=== PATIENT | male | born 1955 | race Caucasian/White ===

== ENCOUNTER 2023-06-16 20:21 | Emergency (ER) | payer MEDICARE, OTHER, SELFPAY ==
[2023-06-16 20:27] VITALS: BP 122/60
[2023-06-16 20:50] LABS: % Basophils 0.4 % (0-2); % Eosinophils 0.1 % (0-6); % Immature Granulocytes 2.8 % (0-0.5); % Lymphocytes 3.2 % (20.5-51.1); % Monocytes 7.7 % (1.7-9.3); % Neutrophils 85.8 % (42.2-75.2); Absolute Basophils 0.1 10^3/uL (0-0.2); Absolute Immature Granulocytes 0.4 10^3/uL (0-0.05); Absolute Lymphocytes 0.5 10^3/uL (1.2-3.4); Absolute Monocytes 1.1 10^3/uL (0.1-0.6); Absolute Neutrophils 12.7 10^3/uL (1.4-6.5); Hematocrit 40.6 % (39.0-52.0); Hemoglobin 13.8 g/dL (13.0-18.0); Mean Corpuscular Hgb 28.7 pg (27.0-31.0); Mean Corpuscular Volume 84.4 fL (80.0-94.0); Nucleated Red Blood Cells % 0 % (-); Red Blood Cell Count 4.81 10^6/uL (4.70-6.10); Red Cell Dist. Width 15.1 % (11.5-14.5); White Blood Cell Count 14.9 10^3/uL (4.8-10.8)
[2023-06-16 21:16] LABS: Platelet Count 12 10^3/uL (130-400)
[2023-06-16 21:41] LABS: ALT (SGPT) 30 U/L (0-50); AST (SGOT) 36 U/L (17-59); Albumin 3.6 g/dl (3.5-5.0); Alkaline Phosphatase 78 U/L (38-126); Blood Urea Nitrogen 34 mg/dl (9-20); Calcium 8.7 mg/dl (8.4-10.2); Carbon Dioxide 24 mmol/L (22-30); Chloride 106 mmol/L (98-107); Glucose 134 mg/dl (70-99); Potassium 4.4 mmol/L (3.5-5.1); Sodium 137 mmol/L (135-145); Total Protein 6.3 g/dl (6.3-8.2); eGFR > 60.00
[2023-06-16 21:54] LABS: Total Bilirubin 0.6 mg/dl (0.2-1.3)
[2023-06-16 22:12] VITALS: BMI 23.2
--- NOTE | 2023-06-16 22:29 | ED.GENMED ---
History of Present Illness
General
Chief Complaint: Nasal Problem
Source: patient
Exam Limitations: none
Time Seen by Provider: 06/16/23 22:13
Nursing documentation reviewed up to this point in time: agreed with
Travel History
Have you had any contact with someone who has COVID-19?: No
Do you have any symptoms of coronavirus? Fever > 100 degrees, chills, cough, shortness of breath, sore throat, loss of taste or smell, muscle aches, or headache?: No
History of Present Illness
History of Present Illness:
68-year-old male with ITP chronic since childhood followed by Dr. Marte gets Nplate weekly missed his dose last week due to weather, platelet count was 2-3000, started on prednisone 30 mg platelet count went up today 12,000 proportional developed
nosebleed few hours ago has been bleeding through a pack, been having some bruising,
Phy Exam
Physical Exam
Physical Exam:
Physical Exam
General: no apparent distress, not acutely ill
Neck: Oozing bleeding through nasal pack--- packing removed with slight bleeding
Heart: s1/s2 regular rate and rhythm, no murmur. equal radial pulses.
Lungs: no acute respiratory distress.
Neuro: alert and oriented. no focal neurological deficits
Skin: Bruises
Psychiatric: well kept. interactive and cooperative
Extremities: no edema.
Course
Orders/Labs/Results
Orders:
Orders
06/16/23 20:40
Type+Screen Urgent
Complete Blood Count/With Diff Urgent
Comprehensive Metabolic Panel Urgent
06/16/23 22:16
0.9% Sodium Chloride 250 ml [Nss] 250 ml IV BOLUS
06/16/23 22:41
Blood Bank Products [* Blood Bank Products] Urgent
's Orders: jerzy
Blood Bank Products: *Plt Single Donor Leuko
Quantity: 1
Transfuse Today: Yes
Reason: Thrombocytopenia
Abnormal Lab Results
06/16/23
20:40
WBC 14.9 H 10^3/uL
(4.8-10.8)
RDW 15.1 H %
(11.5-14.5)
Plt Count 12 L* 10^3/uL
(130-400)
Abs Immat Gran (auto) 0.4 H 10^3/uL
(0-0.05)
Absolute Neuts (auto) 12.7 H 10^3/uL
(1.4-6.5)
Absolute Lymphs (auto) 0.5 L 10^3/uL
(1.2-3.4)
Absolute Monos (auto) 1.1 H 10^3/uL
(0.1-0.6)
Immature Gran % 2.8 H %
(0-0.5)
Neutrophils % 85.8 H %
(42.2-75.2)
Lymphocytes % 3.2 L %
(20.5-51.1)
BUN 34 H mg/dl
(9-20)
Glucose 134 H mg/dl
(70-99)
06/16/23 20:40
06/16/23 20:40
Vital Signs
Initial and Last Documented VS:
Initial Vital Signs
Temp Pulse Resp BP Pulse Ox
97.9 F 83 18 122/60 99
06/16/23 20:27 06/16/23 20:27 06/16/23 20:27 06/16/23 20:27 06/16/23 20:27
Last Documented Vital Signs
Temp Pulse Resp BP Pulse Ox
98.9 F 67 18 148/88 97
06/16/23 23:51 06/16/23 23:29 06/16/23 23:51 06/16/23 23:51 06/16/23 23:51
*Critical Care Note
Total Time (30-74mins, 75-104mins- exclusive of procedures): 12
Update Note
Update Note:
Reviewed with on-call hematology his dose of Nplate is 550 mcg pharmacy only has 125 mcg in stock, therefore oncologist recommended platelet transfusion and IVIG milligram per kilogram
Will try to arrange all this going with platelet transfusion patient consented for product
11:20 PM homemade packing of the patient would not remove by myself not much bleeding now reviewed options with him, he would like to stay for platelet transfusion which is not unreasonable I think we can hold off on IVIG, he does have an
appointment tomorrow with hematology for Nplate
1154 platelets infusing no obvious bleeding
ED Attending Note
-
Portions of this chart may have been created with voice recognition software.� Occasional wrong word or��sound alike� substitutions may have occurred due to the inherent limitations of voice recognition software.
Discharge Plan
Departure
Patient Disposition: Home (Routine Discharge)
Date of Disposition: 06/16/23
Time of Disposition: 23:54
Patient with high blood pressure during this ER visit?: No
Condition: Good
Discharge Problem:
Thrombocytopenia, Chronic ITP (idiopathic thrombocytopenia)
Instructions: Nosebleeds (DC)
Prescriptions:
No Action
levothyroxine 50 mcg Tablet
50 mcg PO DAILY
prednisone 10 mg Tablet
10 mg PO DIRECTED
Patient Comments:
patient stated he started on 11/02/22 on 50mg then got a call yesterday 11/07/22 from his pcp to decrease to 40mg then as directed, 35mg daily for 2 days then 30mg daily for 2 days then 25mg daily for 2 days then 20mg daily for 2 days then 15mg
daily thereafter
Theragen Tablet
1 tab PO DAILY
acetaminophen [Tylenol Extra Strength] 500 mg Tablet
1,000 mg PO QIDPRN PRN (Reason: mild pain)
calcium carbonate [Calcium 500] 500 mg calcium (1,250 mg) Tablet
500 mg PO DAILY
ascorbate calcium (vitamin C) [Joyce-C] 500 mg Tablet
500 mg PO DAILY
vitamin B complex [B Complete] Tablet
1 tab PO DAILY
Referrals:
Madeline Ervin CRNP [Family Provider] -
Activity Restrictions/Additional Instructions:
Return to the ER if your bleeding returns he cannot control it, follow-up with hematology tomorrow for your infusion of Nplate
Interventions
Interventions:
*Risk Screen - Suicide Last Done: 06/16/23 20:27
*General Assessment Last Done: 06/16/23 20:27
*Neglect/Abuse Screening Last Done: 06/16/23 20:27
ED- Fall Risk Assessment Last Done: 06/16/23 20:27
*ED COVID-19 Vaccine History Last Done: 06/16/23 20:27
ED-EENT Assessment Last Done: 06/16/23 22:19
[2023-06-16] MEDS: NSS 250 IV (22:50)
[2023-06-16 23:29] VITALS: BP 144/82
[2023-06-16 23:51] VITALS: BP 148/88
[2023-06-16 23:53] VITALS: BP 148/88
== END 2023-06-17 00:20 | disposition home or self-care (01) ==
LOC: EMR 20:21
PROVIDERS: EMERGENCY PHYSICIAN Emergency Medicine; FAMILY PHYSICIAN Nurse Practitioner Adult Health
DX: R04.0 Epistaxis (principal); D69.3 Immune thrombocytopenic purpura
CPT/HCPCS: 99282; 96360; 80053; 85025; 86850; 86900; 86901; P9073

== ENCOUNTER 2023-06-26 16:13 | Outpatient (RCR) | payer MEDICARE, OTHER, SELFPAY | END 2023-06-26 23:59 | disposition home or self-care (01) | LOC: OID 16:13 | PROVIDERS: ATTENDING PHYSICIAN Internal Medicine Hematology & Oncology; FAMILY PHYSICIAN Nurse Practitioner Adult Health | DX: D69.3 Immune thrombocytopenic purpura (principal); M06.9 Rheumatoid arthritis, unspecified | CPT/HCPCS: 36415; 85025; 86850; 86900; 86901; 86920 ==

== ENCOUNTER 2023-06-27 11:29 | Outpatient (RCR) | payer MEDICARE, OTHER, SELFPAY ==
[2023-06-27 11:35] VITALS: BP 137/66
[2023-06-27 12:08] VITALS: BP 137/66
[2023-06-27 12:25] VITALS: BP 137/66
[2023-06-27 14:45] VITALS: BP 137/73
== END 2023-07-25 23:59 | disposition home or self-care (01) ==
LOC: OID 11:29
PROVIDERS: ATTENDING PHYSICIAN Internal Medicine Hematology & Oncology; FAMILY PHYSICIAN Nurse Practitioner Adult Health
DX: D69.3 Immune thrombocytopenic purpura (principal); M06.9 Rheumatoid arthritis, unspecified
CPT/HCPCS: 36430; 86850; 86900; 86901; 86920; P9016

== ENCOUNTER → 2023-07-05 11:20 | Outpatient (REF) | payer MEDICARE, OTHER, SELFPAY ==
[2023-07-05 11:50] LABS: % Basophils 0.2 % (0-2); % Eosinophils 0.1 % (0-6); % Immature Granulocytes 3.7 % (0-0.5); % Lymphocytes 4.4 % (20.5-51.1); % Monocytes 10.5 % (1.7-9.3); % Neutrophils 81.1 % (42.2-75.2); Absolute Immature Granulocytes 0.5 10^3/uL (0-0.05); Absolute Lymphocytes 0.6 10^3/uL (1.2-3.4); Absolute Monocytes 1.5 10^3/uL (0.1-0.6); Absolute Neutrophils 11.5 10^3/uL (1.4-6.5); Hematocrit 29.3 % (39.0-52.0); Hemoglobin 9.3 g/dL (13.0-18.0); Mean Corp Hgb Conc. 31.7 g/dL (33.0-37.0); Mean Corpuscular Hgb 29.5 pg (27.0-31.0); Nucleated Red Blood Cells % 1.1 % (-); Red Blood Cell Count 3.15 10^6/uL (4.70-6.10); Red Cell Dist. Width 18.2 % (11.5-14.5); White Blood Cell Count 14.2 10^3/uL (4.8-10.8)
[2023-07-05 12:38] LABS: Platelet Count 32 10^3/uL (130-400)
== END ==
LOC: REG 11:20
PROVIDERS: ATTENDING PHYSICIAN Internal Medicine Hematology & Oncology
DX: D69.3 Immune thrombocytopenic purpura (principal); M06.9 Rheumatoid arthritis, unspecified
CPT/HCPCS: 36415; 85025

== ENCOUNTER → 2023-07-12 11:16 | Outpatient (REF) | payer MEDICARE, OTHER, SELFPAY ==
[2023-07-12 12:08] LABS: % Basophils 0.4 % (0-2); % Eosinophils 0.1 % (0-6); % Immature Granulocytes 5.7 % (0-0.5); % Lymphocytes 6.3 % (20.5-51.1); % Monocytes 7.1 % (1.7-9.3); % Neutrophils 80.4 % (42.2-75.2); Absolute Basophils 0.1 10^3/uL (0-0.2); Absolute Immature Granulocytes 0.8 10^3/uL (0-0.05); Absolute Lymphocytes 0.9 10^3/uL (1.2-3.4); Absolute Monocytes 1.1 10^3/uL (0.1-0.6); Absolute Neutrophils 11.9 10^3/uL (1.4-6.5); Hematocrit 32.9 % (39.0-52.0); Hemoglobin 10.4 g/dL (13.0-18.0); Mean Corp Hgb Conc. 31.6 g/dL (33.0-37.0); Mean Corpuscular Hgb 29.8 pg (27.0-31.0); Mean Corpuscular Volume 94.3 fL (80.0-94.0); Nucleated Red Blood Cells % 0.5 % (-); Red Blood Cell Count 3.49 10^6/uL (4.70-6.10); Red Cell Dist. Width 17.7 % (11.5-14.5); White Blood Cell Count 14.8 10^3/uL (4.8-10.8)
[2023-07-12 12:22] LABS: Platelet Count 30 10^3/uL (130-400)
== END ==
LOC: REG 11:16
PROVIDERS: ATTENDING PHYSICIAN Internal Medicine Hematology & Oncology; FAMILY PHYSICIAN Nurse Practitioner Adult Health
DX: D69.3 Immune thrombocytopenic purpura (principal); M06.9 Rheumatoid arthritis, unspecified
CPT/HCPCS: 36415; 85025

== ENCOUNTER → 2023-07-19 10:57 | Outpatient (REF) | payer MEDICARE, OTHER, SELFPAY ==
[2023-07-19 11:58] LABS: % Basophils 0.8 % (0-2); % Eosinophils 0.2 % (0-6); % Immature Granulocytes 4.3 % (0-0.5); % Lymphocytes 8.4 % (20.5-51.1); % Monocytes 12.4 % (1.7-9.3); % Neutrophils 73.9 % (42.2-75.2); Absolute Basophils 0.1 10^3/uL (0-0.2); Absolute Immature Granulocytes 0.6 10^3/uL (0-0.05); Absolute Lymphocytes 1.2 10^3/uL (1.2-3.4); Absolute Monocytes 1.8 10^3/uL (0.1-0.6); Absolute Neutrophils 10.6 10^3/uL (1.4-6.5); Hematocrit 35.8 % (39.0-52.0); Hemoglobin 11.7 g/dL (13.0-18.0); Mean Corp Hgb Conc. 32.7 g/dL (33.0-37.0); Mean Corpuscular Hgb 30.5 pg (27.0-31.0); Mean Corpuscular Volume 93.5 fL (80.0-94.0); Mean Platelet Volume 13.4 fL (7.4-10.4); Nucleated Red Blood Cells % 0.1 % (-); Red Blood Cell Count 3.83 10^6/uL (4.70-6.10); Red Cell Dist. Width 16.5 % (11.5-14.5); White Blood Cell Count 14.3 10^3/uL (4.8-10.8)
[2023-07-19 12:40] LABS: Platelet Count 403 10^3/uL (130-400)
== END ==
LOC: REG 10:57
PROVIDERS: ATTENDING PHYSICIAN Internal Medicine Hematology & Oncology; FAMILY PHYSICIAN Nurse Practitioner Adult Health
DX: D69.3 Immune thrombocytopenic purpura (principal); M06.9 Rheumatoid arthritis, unspecified
CPT/HCPCS: 36415; 85025

== ENCOUNTER → 2023-07-26 11:16 | Outpatient (REF) | payer MEDICARE, OTHER, SELFPAY ==
[2023-07-26 11:52] LABS: % Basophils 0.7 % (0-2); % Eosinophils 0.3 % (0-6); % Immature Granulocytes 4.9 % (0-0.5); % Lymphocytes 9.8 % (20.5-51.1); % Monocytes 12.4 % (1.7-9.3); % Neutrophils 71.9 % (42.2-75.2); Absolute Basophils 0.1 10^3/uL (0-0.2); Absolute Eosinophils 0.1 10^3/uL (0-0.7); Absolute Immature Granulocytes 0.8 10^3/uL (0-0.05); Absolute Lymphocytes 1.6 10^3/uL (1.2-3.4); Absolute Neutrophils 11.6 10^3/uL (1.4-6.5); Hematocrit 35.6 % (39.0-52.0); Hemoglobin 11.2 g/dL (13.0-18.0); Mean Corp Hgb Conc. 31.5 g/dL (33.0-37.0); Mean Corpuscular Volume 92.2 fL (80.0-94.0); Nucleated Red Blood Cells % 0.2 % (-); Red Blood Cell Count 3.86 10^6/uL (4.70-6.10); Red Cell Dist. Width 15.7 % (11.5-14.5); White Blood Cell Count 16.1 10^3/uL (4.8-10.8)
[2023-07-26 13:31] LABS: Mean Platelet Volume 11.8 fL (7.4-10.4); Platelet Count 898 10^3/uL (130-400)
== END ==
LOC: REG 11:16
PROVIDERS: ATTENDING PHYSICIAN Internal Medicine Hematology & Oncology
DX: D69.3 Immune thrombocytopenic purpura (principal); M06.9 Rheumatoid arthritis, unspecified
CPT/HCPCS: 36415; 85025

== ENCOUNTER → 2023-07-29 10:52 | Outpatient (REF) | payer MEDICARE, OTHER, SELFPAY ==
[2023-07-29 11:38] LABS: % Basophils 0.9 % (0-2); % Eosinophils 0.2 % (0-6); % Immature Granulocytes 4.2 % (0-0.5); % Lymphocytes 11.7 % (20.5-51.1); Absolute Basophils 0.2 10^3/uL (0-0.2); Absolute Immature Granulocytes 0.7 10^3/uL (0-0.05); Absolute Lymphocytes 1.9 10^3/uL (1.2-3.4); Absolute Monocytes 2.1 10^3/uL (0.1-0.6); Absolute Neutrophils 11.5 10^3/uL (1.4-6.5); Hematocrit 36.8 % (39.0-52.0); Hemoglobin 11.6 g/dL (13.0-18.0); Mean Corp Hgb Conc. 31.5 g/dL (33.0-37.0); Mean Corpuscular Hgb 28.9 pg (27.0-31.0); Mean Corpuscular Volume 91.5 fL (80.0-94.0); Nucleated Red Blood Cells % 0.1 % (-); Red Blood Cell Count 4.02 10^6/uL (4.70-6.10); Red Cell Dist. Width 15.4 % (11.5-14.5); White Blood Cell Count 16.4 10^3/uL (4.8-10.8)
[2023-07-29 14:13] LABS: % Basophils 0.7 % (0-2); % Eosinophils 0.3 % (0-6); % Immature Granulocytes 3.7 % (0-0.5); % Lymphocytes 11.2 % (20.5-51.1); % Monocytes 13.9 % (1.7-9.3); % Neutrophils 70.2 % (42.2-75.2); Absolute Basophils 0.1 10^3/uL (0-0.2); Absolute Immature Granulocytes 0.5 10^3/uL (0-0.05); Absolute Lymphocytes 1.6 10^3/uL (1.2-3.4); Absolute Neutrophils 10.3 10^3/uL (1.4-6.5); Hematocrit 34.8 % (39.0-52.0); Mean Corp Hgb Conc. 31.6 g/dL (33.0-37.0); Mean Corpuscular Hgb 28.7 pg (27.0-31.0); Mean Corpuscular Volume 90.9 fL (80.0-94.0); Nucleated Red Blood Cells % 0.1 % (-); Red Blood Cell Count 3.83 10^6/uL (4.70-6.10); Red Cell Dist. Width 15.4 % (11.5-14.5); White Blood Cell Count 14.7 10^3/uL (4.8-10.8)
[2023-07-29 14:26] LABS: Platelet Count 1123 10^3/uL (130-400)
[2023-07-29 14:27] LABS: Mean Platelet Volume 10.5 fL (7.4-10.4)
== END ==
LOC: REG 10:52
PROVIDERS: ATTENDING PHYSICIAN Internal Medicine Hematology & Oncology; FAMILY PHYSICIAN Nurse Practitioner Adult Health
DX: D69.3 Immune thrombocytopenic purpura (principal); M06.9 Rheumatoid arthritis, unspecified
CPT/HCPCS: 36415; 85025

== ENCOUNTER → 2023-07-31 10:29 | Outpatient (REF) | payer MEDICARE, OTHER, SELFPAY ==
[2023-07-31 12:10] LABS: % Basophils 0.8 % (0-2); % Eosinophils 0.6 % (0-6); % Immature Granulocytes 2.9 % (0-0.5); % Lymphocytes 9.1 % (20.5-51.1); % Monocytes 14.4 % (1.7-9.3); % Neutrophils 72.2 % (42.2-75.2); Absolute Basophils 0.1 10^3/uL (0-0.2); Absolute Eosinophils 0.1 10^3/uL (0-0.7); Absolute Immature Granulocytes 0.4 10^3/uL (0-0.05); Absolute Lymphocytes 1.2 10^3/uL (1.2-3.4); Absolute Monocytes 1.9 10^3/uL (0.1-0.6); Absolute Neutrophils 9.6 10^3/uL (1.4-6.5); Hematocrit 35.4 % (39.0-52.0); Hemoglobin 11.1 g/dL (13.0-18.0); Mean Corp Hgb Conc. 31.4 g/dL (33.0-37.0); Mean Corpuscular Volume 92.4 fL (80.0-94.0); Mean Platelet Volume 10.7 fL (7.4-10.4); Nucleated Red Blood Cells % 0 % (-); Platelet Count 1051 10^3/uL (130-400); Red Blood Cell Count 3.83 10^6/uL (4.70-6.10); Red Cell Dist. Width 15.2 % (11.5-14.5); White Blood Cell Count 13.3 10^3/uL (4.8-10.8)
== END ==
LOC: REG 10:29
PROVIDERS: ATTENDING PHYSICIAN Internal Medicine Hematology & Oncology
DX: D69.3 Immune thrombocytopenic purpura (principal); M06.9 Rheumatoid arthritis, unspecified
CPT/HCPCS: 36415; 85025

== ENCOUNTER → 2023-08-02 10:31 | Outpatient (REF) | payer MEDICARE, OTHER, SELFPAY ==
[2023-08-02 10:57] LABS: % Eosinophils 0.7 % (0-6); % Immature Granulocytes 2.4 % (0-0.5); % Lymphocytes 10.9 % (20.5-51.1); % Monocytes 13.8 % (1.7-9.3); % Neutrophils 71.2 % (42.2-75.2); Absolute Basophils 0.1 10^3/uL (0-0.2); Absolute Eosinophils 0.1 10^3/uL (0-0.7); Absolute Immature Granulocytes 0.3 10^3/uL (0-0.05); Absolute Lymphocytes 1.4 10^3/uL (1.2-3.4); Absolute Monocytes 1.8 10^3/uL (0.1-0.6); Absolute Neutrophils 9.3 10^3/uL (1.4-6.5); Hematocrit 35.3 % (39.0-52.0); Hemoglobin 11.3 g/dL (13.0-18.0); Mean Corpuscular Hgb 29.3 pg (27.0-31.0); Mean Corpuscular Volume 91.5 fL (80.0-94.0); Nucleated Red Blood Cells % 0 % (-); Red Blood Cell Count 3.86 10^6/uL (4.70-6.10); Red Cell Dist. Width 14.9 % (11.5-14.5)
[2023-08-02 11:12] LABS: Mean Platelet Volume 10.5 fL (7.4-10.4); Platelet Count 518 10^3/uL (130-400)
== END ==
LOC: REG 10:31
PROVIDERS: ATTENDING PHYSICIAN Internal Medicine Hematology & Oncology; FAMILY PHYSICIAN Nurse Practitioner Adult Health
DX: D69.3 Immune thrombocytopenic purpura (principal); M06.9 Rheumatoid arthritis, unspecified
CPT/HCPCS: 36415; 85025

== ENCOUNTER → 2023-08-05 09:52 | Outpatient (REF) | payer MEDICARE, OTHER, SELFPAY ==
[2023-08-05 11:05] LABS: % Basophils 0.4 % (0-2); % Lymphocytes 6.1 % (20.5-51.1); % Monocytes 6.1 % (1.7-9.3); % Neutrophils 85.4 % (42.2-75.2); Absolute Immature Granulocytes 0.2 10^3/uL (0-0.05); Absolute Lymphocytes 0.6 10^3/uL (1.2-3.4); Absolute Monocytes 0.6 10^3/uL (0.1-0.6); Absolute Neutrophils 8.9 10^3/uL (1.4-6.5); Hematocrit 35.6 % (39.0-52.0); Hemoglobin 11.5 g/dL (13.0-18.0); Mean Corp Hgb Conc. 32.3 g/dL (33.0-37.0); Mean Corpuscular Hgb 28.8 pg (27.0-31.0); Mean Corpuscular Volume 89.2 fL (80.0-94.0); Nucleated Red Blood Cells % 0 % (-); Red Blood Cell Count 3.99 10^6/uL (4.70-6.10); Red Cell Dist. Width 14.5 % (11.5-14.5); White Blood Cell Count 10.4 10^3/uL (4.8-10.8)
[2023-08-05 11:17] LABS: Platelet Count 1 10^3/uL (130-400)
[2023-08-05 14:27] LABS: % Basophils 0.4 % (0-2); % Immature Granulocytes 1.8 % (0-0.5); % Lymphocytes 6.3 % (20.5-51.1); % Monocytes 8.1 % (1.7-9.3); % Neutrophils 83.4 % (42.2-75.2); Absolute Basophils 0.1 10^3/uL (0-0.2); Absolute Immature Granulocytes 0.2 10^3/uL (0-0.05); Absolute Lymphocytes 0.8 10^3/uL (1.2-3.4); Absolute Monocytes 1.1 10^3/uL (0.1-0.6); Absolute Neutrophils 11.2 10^3/uL (1.4-6.5); Hematocrit 35.5 % (39.0-52.0); Hemoglobin 11.6 g/dL (13.0-18.0); Mean Corp Hgb Conc. 32.7 g/dL (33.0-37.0); Mean Corpuscular Hgb 28.9 pg (27.0-31.0); Mean Corpuscular Volume 88.5 fL (80.0-94.0); Nucleated Red Blood Cells % 0 % (-); Platelet Count 0 10^3/uL (130-400); Red Blood Cell Count 4.01 10^6/uL (4.70-6.10); Red Cell Dist. Width 14.5 % (11.5-14.5); White Blood Cell Count 13.4 10^3/uL (4.8-10.8)
== END ==
LOC: REG 09:52
PROVIDERS: ATTENDING PHYSICIAN Internal Medicine Hematology & Oncology; FAMILY PHYSICIAN Nurse Practitioner Adult Health
DX: D69.3 Immune thrombocytopenic purpura (principal); M06.9 Rheumatoid arthritis, unspecified
CPT/HCPCS: 36415; 85025

== ENCOUNTER 2023-08-06 07:53 | Outpatient (RCR) | payer MEDICARE, OTHER, SELFPAY ==
[2023-08-06 08:54] VITALS: BP 143/75
[2023-08-06 09:10] VITALS: BP 128/71
[2023-08-06 09:46] VITALS: BP 146/70
== END 2023-08-25 23:59 | disposition home or self-care (01) ==
LOC: OID 07:53
PROVIDERS: ATTENDING PHYSICIAN Internal Medicine Hematology & Oncology; FAMILY PHYSICIAN Nurse Practitioner Adult Health
DX: D69.3 Immune thrombocytopenic purpura (principal)
CPT/HCPCS: 36430; P9073

== ENCOUNTER → 2023-08-16 10:47 | Outpatient (REF) | payer MEDICARE, OTHER, SELFPAY ==
[2023-08-16 11:52] LABS: % Basophils 0.3 % (0-2); % Eosinophils 0.2 % (0-6); % Immature Granulocytes 4.6 % (0-0.5); % Lymphocytes 4.1 % (20.5-51.1); % Monocytes 11.2 % (1.7-9.3); % Neutrophils 79.6 % (42.2-75.2); Absolute Basophils 0.1 10^3/uL (0-0.2); Absolute Immature Granulocytes 0.8 10^3/uL (0-0.05); Absolute Lymphocytes 0.7 10^3/uL (1.2-3.4); Absolute Monocytes 1.9 10^3/uL (0.1-0.6); Absolute Neutrophils 13.5 10^3/uL (1.4-6.5); Hematocrit 33.6 % (39.0-52.0); Hemoglobin 10.5 g/dL (13.0-18.0); Mean Corp Hgb Conc. 31.3 g/dL (33.0-37.0); Mean Corpuscular Hgb 29.2 pg (27.0-31.0); Mean Corpuscular Volume 93.3 fL (80.0-94.0); Nucleated Red Blood Cells % 0.5 % (-); Red Cell Dist. Width 16.5 % (11.5-14.5); White Blood Cell Count 16.9 10^3/uL (4.8-10.8)
[2023-08-16 11:58] LABS: Platelet Count 87 10^3/uL (130-400)
== END ==
LOC: REG 10:47
PROVIDERS: ATTENDING PHYSICIAN Internal Medicine Hematology & Oncology; FAMILY PHYSICIAN Nurse Practitioner Adult Health
DX: D69.3 Immune thrombocytopenic purpura (principal); M06.9 Rheumatoid arthritis, unspecified
CPT/HCPCS: 36415; 85025

== ENCOUNTER → 2023-08-26 14:08 | Outpatient (REF) | payer MEDICARE, OTHER, SELFPAY ==
[2023-08-26 14:33] LABS: % Basophils 0.5 % (0-2); % Eosinophils 0.4 % (0-6); % Immature Granulocytes 3.2 % (0-0.5); % Lymphocytes 9.1 % (20.5-51.1); % Monocytes 12.6 % (1.7-9.3); % Neutrophils 74.2 % (42.2-75.2); Absolute Basophils 0.1 10^3/uL (0-0.2); Absolute Eosinophils 0.1 10^3/uL (0-0.7); Absolute Immature Granulocytes 0.4 10^3/uL (0-0.05); Absolute Lymphocytes 1.2 10^3/uL (1.2-3.4); Absolute Monocytes 1.7 10^3/uL (0.1-0.6); Hematocrit 35.2 % (39.0-52.0); Hemoglobin 10.9 g/dL (13.0-18.0); Mean Corpuscular Hgb 28.7 pg (27.0-31.0); Mean Corpuscular Volume 92.6 fL (80.0-94.0); Nucleated Red Blood Cells % 0 % (-); Platelet Count 964 10^3/uL (130-400); Red Cell Dist. Width 15.8 % (11.5-14.5); White Blood Cell Count 13.5 10^3/uL (4.8-10.8)
== END ==
LOC: REG 14:08
PROVIDERS: ATTENDING PHYSICIAN Internal Medicine Hematology & Oncology; FAMILY PHYSICIAN Nurse Practitioner Adult Health
DX: D69.3 Immune thrombocytopenic purpura (principal); M06.9 Rheumatoid arthritis, unspecified
CPT/HCPCS: 36415; 85025

== ENCOUNTER → 2023-08-29 11:45 | Outpatient (REF) | payer MEDICARE, OTHER, SELFPAY ==
[2023-08-29 12:30] LABS: % Basophils 0.5 % (0-2); % Eosinophils 0.3 % (0-6); % Immature Granulocytes 1.8 % (0-0.5); % Lymphocytes 6.6 % (20.5-51.1); % Monocytes 10.4 % (1.7-9.3); % Neutrophils 80.4 % (42.2-75.2); Absolute Basophils 0.1 10^3/uL (0-0.2); Absolute Immature Granulocytes 0.2 10^3/uL (0-0.05); Absolute Lymphocytes 0.8 10^3/uL (1.2-3.4); Absolute Monocytes 1.2 10^3/uL (0.1-0.6); Absolute Neutrophils 9.6 10^3/uL (1.4-6.5); Hematocrit 32.9 % (39.0-52.0); Hemoglobin 10.6 g/dL (13.0-18.0); Mean Corp Hgb Conc. 32.2 g/dL (33.0-37.0); Mean Corpuscular Volume 90.1 fL (80.0-94.0); Mean Platelet Volume 10.3 fL (7.4-10.4); Nucleated Red Blood Cells % 0 % (-); Platelet Count 1135 10^3/uL (130-400); Red Blood Cell Count 3.65 10^6/uL (4.70-6.10); Red Cell Dist. Width 15.8 % (11.5-14.5)
== END ==
LOC: REG 11:45
PROVIDERS: ATTENDING PHYSICIAN Internal Medicine Hematology & Oncology; FAMILY PHYSICIAN Nurse Practitioner Adult Health
DX: D69.3 Immune thrombocytopenic purpura (principal); M06.9 Rheumatoid arthritis, unspecified; R10.84 Generalized abdominal pain; R14.0 Abdominal distension (gaseous); R18.8 Other ascites
CPT/HCPCS: 36415; 85025

== ENCOUNTER → 2023-08-30 06:36 | Outpatient (REF) | payer MEDICARE, OTHER, SELFPAY | LOC: RAD 06:36 | PROVIDERS: ATTENDING PHYSICIAN Internal Medicine Hematology & Oncology; FAMILY PHYSICIAN Nurse Practitioner Adult Health | DX: D69.3 Immune thrombocytopenic purpura (principal); M06.9 Rheumatoid arthritis, unspecified | CPT/HCPCS: 76700 ==

== ENCOUNTER → 2023-09-02 10:39 | Outpatient (REF) | payer MEDICARE, OTHER, SELFPAY ==
[2023-09-02 11:06] LABS: % Basophils 0.4 % (0-2); % Eosinophils 0.2 % (0-6); % Immature Granulocytes 2.1 % (0-0.5); % Lymphocytes 8.1 % (20.5-51.1); % Monocytes 10.2 % (1.7-9.3); Absolute Basophils 0.1 10^3/uL (0-0.2); Absolute Immature Granulocytes 0.3 10^3/uL (0-0.05); Absolute Monocytes 1.2 10^3/uL (0.1-0.6); Absolute Neutrophils 9.5 10^3/uL (1.4-6.5); Hematocrit 34.6 % (39.0-52.0); Hemoglobin 10.9 g/dL (13.0-18.0); Mean Corp Hgb Conc. 31.5 g/dL (33.0-37.0); Mean Corpuscular Hgb 28.5 pg (27.0-31.0); Mean Corpuscular Volume 90.3 fL (80.0-94.0); Mean Platelet Volume 9.8 fL (7.4-10.4); Nucleated Red Blood Cells % 0 % (-); Red Blood Cell Count 3.83 10^6/uL (4.70-6.10); Red Cell Dist. Width 15.2 % (11.5-14.5)
[2023-09-02 11:45] LABS: Platelet Count 484 10^3/uL (130-400)
== END ==
LOC: REG 10:39
PROVIDERS: ATTENDING PHYSICIAN Internal Medicine Hematology & Oncology; FAMILY PHYSICIAN Nurse Practitioner Adult Health
DX: D69.3 Immune thrombocytopenic purpura (principal); M06.9 Rheumatoid arthritis, unspecified; R10.84 Generalized abdominal pain; R14.0 Abdominal distension (gaseous); R18.8 Other ascites
CPT/HCPCS: 36415; 85025

== ENCOUNTER → 2023-09-09 11:03 | Outpatient (REF) | payer MEDICARE, OTHER, SELFPAY ==
[2023-09-09 12:14] LABS: % Basophils 0.4 % (0-2); % Eosinophils 0.2 % (0-6); % Immature Granulocytes 3.4 % (0-0.5); % Lymphocytes 7.4 % (20.5-51.1); % Monocytes 17.3 % (1.7-9.3); % Neutrophils 71.3 % (42.2-75.2); Absolute Basophils 0.1 10^3/uL (0-0.2); Absolute Immature Granulocytes 0.5 10^3/uL (0-0.05); Absolute Lymphocytes 1.2 10^3/uL (1.2-3.4); Absolute Monocytes 2.7 10^3/uL (0.1-0.6); Absolute Neutrophils 11.2 10^3/uL (1.4-6.5); Hematocrit 37.1 % (39.0-52.0); Hemoglobin 11.7 g/dL (13.0-18.0); Mean Corp Hgb Conc. 31.5 g/dL (33.0-37.0); Mean Corpuscular Hgb 28.6 pg (27.0-31.0); Mean Corpuscular Volume 90.7 fL (80.0-94.0); Nucleated Red Blood Cells % 0 % (-); Red Blood Cell Count 4.09 10^6/uL (4.70-6.10); Red Cell Dist. Width 14.9 % (11.5-14.5); White Blood Cell Count 15.8 10^3/uL (4.8-10.8)
[2023-09-09 12:15] LABS: Platelet Count 46 10^3/uL (130-400)
== END ==
LOC: REG 11:03
PROVIDERS: ATTENDING PHYSICIAN Internal Medicine Hematology & Oncology; FAMILY PHYSICIAN Nurse Practitioner Adult Health
DX: D69.3 Immune thrombocytopenic purpura (principal); M06.9 Rheumatoid arthritis, unspecified; R10.84 Generalized abdominal pain; R14.0 Abdominal distension (gaseous); R18.8 Other ascites
CPT/HCPCS: 36415; 85025

== ENCOUNTER → 2023-09-16 11:48 | Outpatient (REF) | payer MEDICARE, OTHER, SELFPAY ==
[2023-09-16 12:30] LABS: % Basophils 0.6 % (0-2); % Eosinophils 0.1 % (0-6); % Immature Granulocytes 5.1 % (0-0.5); % Lymphocytes 7.2 % (20.5-51.1); % Monocytes 10.4 % (1.7-9.3); % Neutrophils 76.6 % (42.2-75.2); Absolute Basophils 0.1 10^3/uL (0-0.2); Absolute Immature Granulocytes 0.8 10^3/uL (0-0.05); Absolute Lymphocytes 1.2 10^3/uL (1.2-3.4); Absolute Monocytes 1.7 10^3/uL (0.1-0.6); Absolute Neutrophils 12.4 10^3/uL (1.4-6.5); Hematocrit 36.3 % (39.0-52.0); Hemoglobin 11.3 g/dL (13.0-18.0); Mean Corp Hgb Conc. 31.1 g/dL (33.0-37.0); Mean Corpuscular Hgb 28.2 pg (27.0-31.0); Mean Corpuscular Volume 90.5 fL (80.0-94.0); Nucleated Red Blood Cells % 0.2 % (-); Platelet Count 1091 10^3/uL (130-400); Red Blood Cell Count 4.01 10^6/uL (4.70-6.10); Red Cell Dist. Width 14.9 % (11.5-14.5); White Blood Cell Count 16.2 10^3/uL (4.8-10.8)
== END ==
LOC: REG 11:48
PROVIDERS: ATTENDING PHYSICIAN Internal Medicine Hematology & Oncology
DX: D69.3 Immune thrombocytopenic purpura (principal); M06.9 Rheumatoid arthritis, unspecified; R10.84 Generalized abdominal pain; R14.0 Abdominal distension (gaseous); R18.8 Other ascites
CPT/HCPCS: 36415; 85025

== ENCOUNTER → 2023-09-18 13:28 | Outpatient (REF) | payer MEDICARE, OTHER, SELFPAY ==
[2023-09-18 13:59] LABS: % Basophils 0.5 % (0-2); % Eosinophils 0.3 % (0-6); % Immature Granulocytes 2.8 % (0-0.5); % Lymphocytes 9.8 % (20.5-51.1); % Monocytes 11.3 % (1.7-9.3); % Neutrophils 75.3 % (42.2-75.2); Absolute Basophils 0.1 10^3/uL (0-0.2); Absolute Immature Granulocytes 0.4 10^3/uL (0-0.05); Absolute Lymphocytes 1.3 10^3/uL (1.2-3.4); Absolute Monocytes 1.5 10^3/uL (0.1-0.6); Hematocrit 37.2 % (39.0-52.0); Hemoglobin 11.8 g/dL (13.0-18.0); Mean Corp Hgb Conc. 31.7 g/dL (33.0-37.0); Mean Corpuscular Hgb 28.9 pg (27.0-31.0); Mean Corpuscular Volume 91.2 fL (80.0-94.0); Mean Platelet Volume 10.9 fL (7.4-10.4); Nucleated Red Blood Cells % 0.2 % (-); Platelet Count 1670 10^3/uL (130-400); Red Blood Cell Count 4.08 10^6/uL (4.70-6.10); Red Cell Dist. Width 14.9 % (11.5-14.5); White Blood Cell Count 13.2 10^3/uL (4.8-10.8)
== END ==
LOC: REG 13:28
PROVIDERS: ATTENDING PHYSICIAN Internal Medicine Hematology & Oncology; FAMILY PHYSICIAN Nurse Practitioner Adult Health
DX: D69.3 Immune thrombocytopenic purpura (principal); M06.9 Rheumatoid arthritis, unspecified; R10.84 Generalized abdominal pain; R14.0 Abdominal distension (gaseous); R18.8 Other ascites
CPT/HCPCS: 36415; 85025

== ENCOUNTER → 2023-09-23 08:29 | Outpatient (REF) | payer MEDICARE, OTHER, SELFPAY ==
[2023-09-23 09:06] LABS: % Basophils 1.2 % (0-2); % Eosinophils 1.2 % (0-6); % Immature Granulocytes 2.1 % (0-0.5); % Lymphocytes 13.2 % (20.5-51.1); % Monocytes 17.2 % (1.7-9.3); % Neutrophils 65.1 % (42.2-75.2); Absolute Basophils 0.1 10^3/uL (0-0.2); Absolute Eosinophils 0.1 10^3/uL (0-0.7); Absolute Immature Granulocytes 0.2 10^3/uL (0-0.05); Absolute Lymphocytes 1.3 10^3/uL (1.2-3.4); Absolute Monocytes 1.7 10^3/uL (0.1-0.6); Absolute Neutrophils 6.5 10^3/uL (1.4-6.5); Hematocrit 38.4 % (39.0-52.0); Mean Corp Hgb Conc. 31.3 g/dL (33.0-37.0); Mean Corpuscular Hgb 28.2 pg (27.0-31.0); Mean Corpuscular Volume 90.1 fL (80.0-94.0); Nucleated Red Blood Cells % 0 % (-); Red Blood Cell Count 4.26 10^6/uL (4.70-6.10); Red Cell Dist. Width 14.8 % (11.5-14.5)
[2023-09-23 09:47] LABS: ALT (SGPT) 23 U/L (0-50); AST (SGOT) 30 U/L (17-59); Albumin 3.6 g/dl (3.5-5.0); Alkaline Phosphatase 102 U/L (38-126); Blood Urea Nitrogen 26 mg/dl (9-20); Calcium 9.5 mg/dl (8.4-10.2); Carbon Dioxide 27 mmol/L (22-30); Chloride 107 mmol/L (98-107); Glucose 83 mg/dl (70-99); HDL Cholesterol 25 mg/dl; LDL Cholesterol, Calculated 73 mg/dl; Mean Platelet Volume 9.8 fL (7.4-10.4); Platelet Count 1781 10^3/uL (130-400); Potassium 3.7 mmol/L (3.5-5.1); Sodium 141 mmol/L (135-145); Total Bilirubin 0.3 mg/dl (0.2-1.3); Total Cholesterol 139 mg/dl (50-199); Total Protein 6.2 g/dl (6.3-8.2); Triglyceride 207 mg/dl (10-149); Very Low Density Lipoprotein 41 mg/dl (0-30); eGFR > 60.00
[2023-09-23 11:29] LABS: PSA, Total - Screen 0.49 ng/ml (0.0-4.0); TSH Reflex To Free T4 3.78 uIU/ml (0.47-4.68)
== END ==
LOC: REG 08:29
PROVIDERS: ATTENDING PHYSICIAN Internal Medicine Hematology & Oncology; FAMILY PHYSICIAN Nurse Practitioner Adult Health
DX: E03.9 Hypothyroidism, unspecified (principal); D69.3 Immune thrombocytopenic purpura; M06.9 Rheumatoid arthritis, unspecified; R10.84 Generalized abdominal pain; R14.0 Abdominal distension (gaseous); R18.8 Other ascites; Z12.5 Encounter for screening for malignant neoplasm of prostate; E78.2 Mixed hyperlipidemia; Z00.00 Encounter for general adult medical examination without abnormal findings
CPT/HCPCS: 36415; 80053; 80061; 84443; 85025; G0103

== ENCOUNTER → 2023-09-27 11:14 | Outpatient (REF) | payer MEDICARE, OTHER, SELFPAY ==
[2023-09-27 11:53] LABS: % Basophils 0.9 % (0-2); % Eosinophils 0.2 % (0-6); % Immature Granulocytes 2.9 % (0-0.5); % Lymphocytes 10.1 % (20.5-51.1); % Monocytes 10.7 % (1.7-9.3); % Neutrophils 75.2 % (42.2-75.2); Absolute Basophils 0.1 10^3/uL (0-0.2); Absolute Immature Granulocytes 0.4 10^3/uL (0-0.05); Absolute Lymphocytes 1.3 10^3/uL (1.2-3.4); Absolute Monocytes 1.3 10^3/uL (0.1-0.6); Absolute Neutrophils 9.4 10^3/uL (1.4-6.5); Hematocrit 37.6 % (39.0-52.0); Hemoglobin 12.1 g/dL (13.0-18.0); Mean Corp Hgb Conc. 32.2 g/dL (33.0-37.0); Mean Corpuscular Hgb 28.3 pg (27.0-31.0); Mean Corpuscular Volume 88.1 fL (80.0-94.0); Nucleated Red Blood Cells % 0 % (-); Platelet Count 627 10^3/uL (130-400); Red Blood Cell Count 4.27 10^6/uL (4.70-6.10); Red Cell Dist. Width 14.6 % (11.5-14.5); White Blood Cell Count 12.5 10^3/uL (4.8-10.8)
== END ==
LOC: REG 11:14
PROVIDERS: ATTENDING PHYSICIAN Internal Medicine Hematology & Oncology; FAMILY PHYSICIAN Nurse Practitioner Adult Health
DX: D69.3 Immune thrombocytopenic purpura (principal); M06.9 Rheumatoid arthritis, unspecified; R10.84 Generalized abdominal pain; R14.0 Abdominal distension (gaseous); R18.8 Other ascites
CPT/HCPCS: 36415; 85025

== ENCOUNTER → 2023-09-30 10:53 | Outpatient (REF) | payer MEDICARE, OTHER, SELFPAY ==
[2023-09-30 12:08] LABS: % Basophils 0.6 % (0-2); % Eosinophils 0.3 % (0-6); % Immature Granulocytes 1.7 % (0-0.5); % Monocytes 9.5 % (1.7-9.3); % Neutrophils 77.9 % (42.2-75.2); Absolute Basophils 0.1 10^3/uL (0-0.2); Absolute Immature Granulocytes 0.2 10^3/uL (0-0.05); Absolute Lymphocytes 1.4 10^3/uL (1.2-3.4); Absolute Monocytes 1.3 10^3/uL (0.1-0.6); Absolute Neutrophils 10.9 10^3/uL (1.4-6.5); Hematocrit 40.3 % (39.0-52.0); Hemoglobin 12.7 g/dL (13.0-18.0); Mean Corp Hgb Conc. 31.5 g/dL (33.0-37.0); Mean Corpuscular Hgb 28.1 pg (27.0-31.0); Mean Corpuscular Volume 89.2 fL (80.0-94.0); Nucleated Red Blood Cells % 0 % (-); Red Blood Cell Count 4.52 10^6/uL (4.70-6.10); Red Cell Dist. Width 14.6 % (11.5-14.5)
[2023-09-30 12:15] LABS: Platelet Count 6 10^3/uL (130-400)
== END ==
LOC: REG 10:53
PROVIDERS: ATTENDING PHYSICIAN Internal Medicine Hematology & Oncology
DX: D69.3 Immune thrombocytopenic purpura (principal); M06.9 Rheumatoid arthritis, unspecified; R10.84 Generalized abdominal pain; R14.0 Abdominal distension (gaseous); R18.8 Other ascites
CPT/HCPCS: 36415; 85025

== ENCOUNTER → 2023-10-07 07:42 | Outpatient (REF) | payer MEDICARE, OTHER, SELFPAY ==
[2023-10-07 08:45] LABS: % Basophils 0.4 % (0-2); % Immature Granulocytes 6.3 % (0-0.5); % Lymphocytes 2.3 % (20.5-51.1); % Monocytes 11.7 % (1.7-9.3); % Neutrophils 79.3 % (42.2-75.2); Absolute Basophils 0.1 10^3/uL (0-0.2); Absolute Immature Granulocytes 1.6 10^3/uL (0-0.05); Absolute Lymphocytes 0.6 10^3/uL (1.2-3.4); Absolute Neutrophils 20.4 10^3/uL (1.4-6.5); Hematocrit 28.7 % (39.0-52.0); Hemoglobin 9.5 g/dL (13.0-18.0); Mean Corp Hgb Conc. 33.1 g/dL (33.0-37.0); Mean Corpuscular Hgb 29.1 pg (27.0-31.0); Nucleated Red Blood Cells % 2.6 % (-); Platelet Count 3 10^3/uL (130-400); Red Blood Cell Count 3.26 10^6/uL (4.70-6.10); Red Cell Dist. Width 15.5 % (11.5-14.5); White Blood Cell Count 25.7 10^3/uL (4.8-10.8)
== END ==
LOC: REG 07:42
PROVIDERS: ATTENDING PHYSICIAN Internal Medicine Hematology & Oncology; FAMILY PHYSICIAN Nurse Practitioner Adult Health
DX: D69.3 Immune thrombocytopenic purpura (principal); M06.9 Rheumatoid arthritis, unspecified; R10.84 Generalized abdominal pain; R14.0 Abdominal distension (gaseous); R18.8 Other ascites
CPT/HCPCS: 36415; 85025

== ENCOUNTER → 2023-10-14 10:43 | Outpatient (REF) | payer MEDICARE, OTHER, SELFPAY ==
[2023-10-14 12:21] LABS: % Basophils 0.2 % (0-2); % Immature Granulocytes 4.6 % (0-0.5); % Lymphocytes 2.2 % (20.5-51.1); % Monocytes 6.6 % (1.7-9.3); % Neutrophils 86.4 % (42.2-75.2); Absolute Basophils 0.1 10^3/uL (0-0.2); Absolute Lymphocytes 0.5 10^3/uL (1.2-3.4); Absolute Monocytes 1.4 10^3/uL (0.1-0.6); Absolute Neutrophils 18.8 10^3/uL (1.4-6.5); Hemoglobin 9.9 g/dL (13.0-18.0); Mean Corp Hgb Conc. 31.9 g/dL (33.0-37.0); Mean Corpuscular Volume 90.9 fL (80.0-94.0); Mean Platelet Volume 14.4 fL (7.4-10.4); Nucleated Red Blood Cells % 1.5 % (-); Platelet Count 256 10^3/uL (130-400); Red Blood Cell Count 3.41 10^6/uL (4.70-6.10); Red Cell Dist. Width 17.8 % (11.5-14.5); White Blood Cell Count 21.7 10^3/uL (4.8-10.8)
== END ==
LOC: REG 10:43
PROVIDERS: ATTENDING PHYSICIAN Internal Medicine Hematology & Oncology; FAMILY PHYSICIAN Nurse Practitioner Adult Health
DX: D69.3 Immune thrombocytopenic purpura (principal); M06.9 Rheumatoid arthritis, unspecified; R10.84 Generalized abdominal pain; R14.0 Abdominal distension (gaseous); R18.8 Other ascites
CPT/HCPCS: 36415; 85025

== ENCOUNTER → 2023-10-22 11:16 | Outpatient (REF) | payer MEDICARE, OTHER, SELFPAY ==
[2023-10-22 12:47] LABS: % Basophils 0.2 % (0-2); % Immature Granulocytes 4.5 % (0-0.5); % Lymphocytes 3.3 % (20.5-51.1); % Monocytes 11.7 % (1.7-9.3); % Neutrophils 80.3 % (42.2-75.2); Absolute Lymphocytes 0.7 10^3/uL (1.2-3.4); Absolute Monocytes 2.6 10^3/uL (0.1-0.6); Absolute Neutrophils 17.8 10^3/uL (1.4-6.5); Hematocrit 32.4 % (39.0-52.0); Hemoglobin 10.3 g/dL (13.0-18.0); Mean Corp Hgb Conc. 31.8 g/dL (33.0-37.0); Mean Corpuscular Volume 91.3 fL (80.0-94.0); Nucleated Red Blood Cells % 0.1 % (-); Red Blood Cell Count 3.55 10^6/uL (4.70-6.10); Red Cell Dist. Width 17.3 % (11.5-14.5); White Blood Cell Count 22.2 10^3/uL (4.8-10.8)
[2023-10-22 13:36] LABS: Mean Platelet Volume 10.8 fL (7.4-10.4); Platelet Count 689 10^3/uL (130-400)
== END ==
LOC: REG 11:16
PROVIDERS: ATTENDING PHYSICIAN Internal Medicine Hematology & Oncology
DX: D69.3 Immune thrombocytopenic purpura (principal); M06.9 Rheumatoid arthritis, unspecified; R10.84 Generalized abdominal pain; R14.0 Abdominal distension (gaseous); R18.8 Other ascites
CPT/HCPCS: 36415; 85025

== ENCOUNTER → 2023-10-30 10:15 | Outpatient (REF) | payer MEDICARE, OTHER, SELFPAY ==
[2023-10-30 12:15] LABS: % Basophils 0.3 % (0-2); % Immature Granulocytes 9.2 % (0-0.5); % Lymphocytes 3.6 % (20.5-51.1); % Neutrophils 78.9 % (42.2-75.2); Absolute Basophils 0.1 10^3/uL (0-0.2); Absolute Immature Granulocytes 1.6 10^3/uL (0-0.05); Absolute Lymphocytes 0.6 10^3/uL (1.2-3.4); Absolute Monocytes 1.4 10^3/uL (0.1-0.6); Absolute Neutrophils 13.8 10^3/uL (1.4-6.5); Hematocrit 35.2 % (39.0-52.0); Hemoglobin 10.8 g/dL (13.0-18.0); Mean Corp Hgb Conc. 30.7 g/dL (33.0-37.0); Mean Corpuscular Hgb 28.4 pg (27.0-31.0); Mean Corpuscular Volume 92.6 fL (80.0-94.0); Nucleated Red Blood Cells % 0.2 % (-); Red Cell Dist. Width 16.4 % (11.5-14.5); White Blood Cell Count 17.5 10^3/uL (4.8-10.8)
[2023-10-30 13:55] LABS: Platelet Count 48 10^3/uL (130-400)
== END ==
LOC: REG 10:15
PROVIDERS: ATTENDING PHYSICIAN Internal Medicine Hematology & Oncology; FAMILY PHYSICIAN Nurse Practitioner Adult Health
DX: D69.3 Immune thrombocytopenic purpura (principal); M06.9 Rheumatoid arthritis, unspecified; R10.84 Generalized abdominal pain; R14.0 Abdominal distension (gaseous); R18.8 Other ascites
CPT/HCPCS: 36415; 85025

== ENCOUNTER → 2023-11-06 13:05 | Outpatient (REF) | payer MEDICARE, OTHER, SELFPAY ==
[2023-11-06 13:57] LABS: Hematocrit 33.5 % (39.0-52.0); Hemoglobin 10.5 g/dL (13.0-18.0); Mean Corp Hgb Conc. 31.3 g/dL (33.0-37.0); Mean Corpuscular Hgb 28.1 pg (27.0-31.0); Mean Corpuscular Volume 89.6 fL (80.0-94.0); Nucleated Red Blood Cells % 0.2 % (-); Red Blood Cell Count 3.74 10^6/uL (4.70-6.10); White Blood Cell Count 19.4 10^3/uL (4.8-10.8)
[2023-11-06 14:41] LABS: Band Neutrophils 3 % (0-3); Lymphocytes 5 % (20-51); Metamyelocytes 4 % (-); Monocytes 3 % (2-9); Segmented Neutrophils 85 % (42-75)
[2023-11-06 14:44] LABS: Normal RBC Morphology No; Nucleated Red Blood Cells 2 (-); Platelets Checked YES
[2023-11-06 14:46] LABS: Ovalocytes FEW
[2023-11-06 14:47] LABS: Total Cells Counted 100
[2023-11-06 15:01] LABS: Platelet Count 26 10^3/uL (130-400)
== END ==
LOC: REG 13:05
PROVIDERS: ATTENDING PHYSICIAN Internal Medicine Hematology & Oncology
DX: D69.3 Immune thrombocytopenic purpura (principal); M06.9 Rheumatoid arthritis, unspecified; R10.84 Generalized abdominal pain; R14.0 Abdominal distension (gaseous); R18.8 Other ascites
CPT/HCPCS: 36415; 85025

== ENCOUNTER → 2023-11-15 10:29 | Outpatient (REF) | payer MEDICARE, OTHER, SELFPAY ==
[2023-11-15 11:11] LABS: % Basophils 0.3 % (0-2); % Eosinophils 0.1 % (0-6); % Immature Granulocytes 8.7 % (0-0.5); % Monocytes 8.9 % (1.7-9.3); Absolute Basophils 0.1 10^3/uL (0-0.2); Absolute Immature Granulocytes 1.5 10^3/uL (0-0.05); Absolute Lymphocytes 0.7 10^3/uL (1.2-3.4); Absolute Monocytes 1.6 10^3/uL (0.1-0.6); Absolute Neutrophils 13.6 10^3/uL (1.4-6.5); Hematocrit 34.6 % (39.0-52.0); Hemoglobin 11.1 g/dL (13.0-18.0); Mean Corp Hgb Conc. 32.1 g/dL (33.0-37.0); Mean Corpuscular Volume 87.4 fL (80.0-94.0); Mean Platelet Volume 11.7 fL (7.4-10.4); Nucleated Red Blood Cells % 0.2 % (-); Platelet Count 440 10^3/uL (130-400); Red Blood Cell Count 3.96 10^6/uL (4.70-6.10); Red Cell Dist. Width 16.9 % (11.5-14.5); White Blood Cell Count 17.4 10^3/uL (4.8-10.8)
== END ==
LOC: REG 10:29
PROVIDERS: ATTENDING PHYSICIAN Internal Medicine Hematology & Oncology; FAMILY PHYSICIAN Nurse Practitioner Adult Health
DX: D69.3 Immune thrombocytopenic purpura (principal); M06.9 Rheumatoid arthritis, unspecified; R10.84 Generalized abdominal pain; R14.0 Abdominal distension (gaseous); R18.8 Other ascites
CPT/HCPCS: 36415; 85025

== ENCOUNTER → 2023-11-25 10:58 | Outpatient (REF) | payer MEDICARE, OTHER, SELFPAY ==
[2023-11-25 11:43] LABS: % Basophils 0.8 % (0-2); % Eosinophils 0.1 % (0-6); % Immature Granulocytes 2.2 % (0-0.5); % Lymphocytes 8.3 % (20.5-51.1); % Monocytes 9.1 % (1.7-9.3); % Neutrophils 79.5 % (42.2-75.2); Absolute Basophils 0.1 10^3/uL (0-0.2); Absolute Immature Granulocytes 0.2 10^3/uL (0-0.05); Absolute Lymphocytes 0.6 10^3/uL (1.2-3.4); Absolute Monocytes 0.7 10^3/uL (0.1-0.6); Absolute Neutrophils 5.8 10^3/uL (1.4-6.5); Hematocrit 55.9 % (39.0-52.0); Hemoglobin 17.3 g/dL (13.0-18.0); Mean Corp Hgb Conc. 30.9 g/dL (33.0-37.0); Mean Corpuscular Hgb 27.5 pg (27.0-31.0); Mean Corpuscular Volume 88.7 fL (80.0-94.0); Nucleated Red Blood Cells % 0 % (-); Red Cell Dist. Width 17.9 % (11.5-14.5); White Blood Cell Count 7.4 10^3/uL (4.8-10.8)
[2023-11-25 11:54] LABS: Platelet Count 4 10^3/uL (130-400)
== END ==
LOC: REG 10:58
PROVIDERS: ATTENDING PHYSICIAN Internal Medicine Hematology & Oncology; FAMILY PHYSICIAN Nurse Practitioner Adult Health
DX: D69.3 Immune thrombocytopenic purpura (principal); M06.9 Rheumatoid arthritis, unspecified; R10.84 Generalized abdominal pain; R14.0 Abdominal distension (gaseous); R18.8 Other ascites
CPT/HCPCS: 36415; 85025

== ENCOUNTER → 2023-12-02 10:52 | Outpatient (REF) | payer MEDICARE, OTHER, SELFPAY ==
[2023-12-02 12:40] LABS: % Basophils 0.3 % (0-2); % Eosinophils 0.1 % (0-6); % Immature Granulocytes 5.2 % (0-0.5); % Lymphocytes 3.6 % (20.5-51.1); % Monocytes 8.7 % (1.7-9.3); % Neutrophils 82.1 % (42.2-75.2); Absolute Basophils 0.1 10^3/uL (0-0.2); Absolute Lymphocytes 0.7 10^3/uL (1.2-3.4); Absolute Monocytes 1.6 10^3/uL (0.1-0.6); Absolute Neutrophils 15.5 10^3/uL (1.4-6.5); Hematocrit 34.3 % (39.0-52.0); Hemoglobin 11.1 g/dL (13.0-18.0); Mean Corp Hgb Conc. 32.4 g/dL (33.0-37.0); Mean Corpuscular Hgb 28.6 pg (27.0-31.0); Mean Corpuscular Volume 88.4 fL (80.0-94.0); Nucleated Red Blood Cells % 0.4 % (-); Red Blood Cell Count 3.88 10^6/uL (4.70-6.10); Red Cell Dist. Width 17.5 % (11.5-14.5); White Blood Cell Count 18.8 10^3/uL (4.8-10.8)
[2023-12-02 13:15] LABS: Platelet Count 59 10^3/uL (130-400)
== END ==
LOC: REG 10:52
PROVIDERS: ATTENDING PHYSICIAN Internal Medicine Hematology & Oncology; FAMILY PHYSICIAN Nurse Practitioner Adult Health
DX: D69.3 Immune thrombocytopenic purpura (principal); M06.9 Rheumatoid arthritis, unspecified; R10.84 Generalized abdominal pain; R14.0 Abdominal distension (gaseous); R18.8 Other ascites
CPT/HCPCS: 36415; 85025

== ENCOUNTER → 2023-12-09 11:00 | Outpatient (REF) | payer MEDICARE, OTHER, SELFPAY ==
[2023-12-09 11:40] LABS: % Basophils 0.7 % (0-2); % Eosinophils 0.4 % (0-6); % Immature Granulocytes 3.1 % (0-0.5); % Lymphocytes 4.8 % (20.5-51.1); Absolute Basophils 0.1 10^3/uL (0-0.2); Absolute Eosinophils 0.1 10^3/uL (0-0.7); Absolute Immature Granulocytes 0.4 10^3/uL (0-0.05); Absolute Lymphocytes 0.6 10^3/uL (1.2-3.4); Absolute Monocytes 1.3 10^3/uL (0.1-0.6); Absolute Neutrophils 9.7 10^3/uL (1.4-6.5); Hemoglobin 11.3 g/dL (13.0-18.0); Mean Corp Hgb Conc. 32.3 g/dL (33.0-37.0); Mean Corpuscular Hgb 28.6 pg (27.0-31.0); Mean Corpuscular Volume 88.6 fL (80.0-94.0); Nucleated Red Blood Cells % 0.7 % (-); Red Blood Cell Count 3.95 10^6/uL (4.70-6.10); Red Cell Dist. Width 17.2 % (11.5-14.5); White Blood Cell Count 12.1 10^3/uL (4.8-10.8)
[2023-12-09 11:52] LABS: Platelet Count 366 10^3/uL (130-400)
== END ==
LOC: REG 11:00
PROVIDERS: ATTENDING PHYSICIAN Internal Medicine Hematology & Oncology; FAMILY PHYSICIAN Nurse Practitioner Adult Health
DX: D69.3 Immune thrombocytopenic purpura (principal); M06.9 Rheumatoid arthritis, unspecified; R10.84 Generalized abdominal pain; R14.0 Abdominal distension (gaseous); R18.8 Other ascites
CPT/HCPCS: 36415; 85025

== ENCOUNTER → 2023-12-16 10:08 | Outpatient (REF) | payer MEDICARE, OTHER, SELFPAY ==
[2023-12-16 10:52] LABS: % Basophils 0.6 % (0-2); % Eosinophils 0.1 % (0-6); % Lymphocytes 5.9 % (20.5-51.1); % Monocytes 8.6 % (1.7-9.3); % Neutrophils 79.8 % (42.2-75.2); Absolute Basophils 0.1 10^3/uL (0-0.2); Absolute Immature Granulocytes 0.7 10^3/uL (0-0.05); Absolute Lymphocytes 0.8 10^3/uL (1.2-3.4); Absolute Monocytes 1.2 10^3/uL (0.1-0.6); Absolute Neutrophils 11.1 10^3/uL (1.4-6.5); Hematocrit 35.4 % (39.0-52.0); Hemoglobin 11.4 g/dL (13.0-18.0); Mean Corp Hgb Conc. 32.2 g/dL (33.0-37.0); Mean Corpuscular Hgb 28.5 pg (27.0-31.0); Mean Corpuscular Volume 88.5 fL (80.0-94.0); Mean Platelet Volume 11.1 fL (7.4-10.4); Nucleated Red Blood Cells % 0 % (-); Platelet Count 553 10^3/uL (130-400); Red Cell Dist. Width 17.1 % (11.5-14.5); White Blood Cell Count 13.9 10^3/uL (4.8-10.8)
== END ==
LOC: REG 10:08
PROVIDERS: ATTENDING PHYSICIAN Internal Medicine Hematology & Oncology; FAMILY PHYSICIAN Nurse Practitioner Adult Health
DX: D69.3 Immune thrombocytopenic purpura (principal); M06.9 Rheumatoid arthritis, unspecified; R10.84 Generalized abdominal pain; R14.0 Abdominal distension (gaseous); R18.8 Other ascites
CPT/HCPCS: 36415; 85025

== ENCOUNTER → 2023-12-17 12:22 | Outpatient (REF) | payer MEDICARE, OTHER, SELFPAY ==
[2023-12-17 13:34] LABS: Body Fluid Second Tech EM
[2023-12-17 13:43] LABS: Body Fluid Granulocytes 95 %; Body Fluid Lymphocytes 2 %; Body Fluid Macrophages 3 %
== END ==
LOC: REG 12:22
PROVIDERS: ATTENDING PHYSICIAN Physician Assistant Surgical; FAMILY PHYSICIAN Nurse Practitioner Adult Health
DX: M25.462 Effusion, left knee (principal); M17.12 Unilateral primary osteoarthritis, left knee; D69.3 Immune thrombocytopenic purpura
CPT/HCPCS: 87015; 87070; 87075; 87205; 87476; 89051; 89060

== ENCOUNTER 2023-12-20 06:14 | Day surgery (SDC) | payer MEDICARE, OTHER, SELFPAY ==
[2023-12-20] VITALS (11 sets, daily range): BP systolic 128–165; BP diastolic 63–87; BMI 23.5
[2023-12-20] MEDS: TYLENOL 1000 MG PO (08:40)
[2023-12-20] MEDS: NORMOSOL-R 1000 IV ×2 (08:52→12:38)
[2023-12-20] MEDS: SUBLIMAZE 50 MCG IV (11:45)
[2023-12-20] MEDS: VANCOCIN 200 IV (12:45)
[2023-12-20] MEDS: SUBLIMAZE 25 MCG IV (12:54)
[2023-12-20 13:17] LABS: Body Fluid Mononuclear 17.1 %; Body Fluid Polymorphonuclear 82.9 %; Body Fluid WBC 77360 /CUMM
[2023-12-20 13:18] LABS: Body Fluid Second Tech CS
[2023-12-20 14:01] LABS: Hemoglobin 11.1 g/dL (13.0-18.0)
[2023-12-20 14:21] LABS: Blood Urea Nitrogen 30 mg/dl (9-20); Calcium 8.5 mg/dl (8.4-10.2); Carbon Dioxide 27 mmol/L (22-30); Chloride 107 mmol/L (98-107); Estimated Creatinine Clearance 107 ml/min; Glucose 119 mg/dl (70-99); Potassium 3.9 mmol/L (3.5-5.1); Sodium 139 mmol/L (135-145); eGFR > 60.00
--- NOTE | 2023-12-20 16:14 | PHA.VAN.IN ---
Assessment
- Assessment
Renal Function: Appears similar to baseline (0.8 on 09/23/23)
Maximum Temperature: 98.1 12/20/23 at 08:53
Minimum Temperature: 97.2 12/20/23 at 13:32
AUC Dosing Plan
- Dosing Variables
Dosing Weight (kg): 74.2
Dosing CrCl (ml/min): 100
Vd coefficient (L/kg): 0.7
- Empiric Dosing
Initial / Loading Dose: Split load 1000mg given at 12:45 today. 500mg scheduled for 18:00 today
Maintenance Regimen: Vancomycin 1000mg IV Q12 hr starting 12/21/23 at 06:00
Estimated AUC (mcg*h/mL): 460
Estimated Peak (mcg*h/mL): 30
Estimated Trough (mcg/ml): 11
Estimated Half Life (H): 8
- Monitoring
No levels ordered at this time: Will order levels according to vancomycin dosing protocol
Pharmacokinetics Vancomycin I
- -
Patient Age: 68
Patient Sex: Male
Vancomycin Day #: 1
Indication: Bone And Joint
Requesting Provider: Kobe GALINDO
Pertinent Antimicrobial Allergies:
Penicillin-rash, Sulfa- rash
Height / Weight:
Height 5 ft 10 in
Actual Weight 74.208 kg
IBW in k
Adjusted BW in k.5
Pertinent Past Medical History: RA on chronic prednisone
- Vital Signs / Lab Results
Temp Pulse Resp BP Pulse Ox
97.8 F 74 19 128/63 96
12/20/23 15:33 12/20/23 15:33 12/20/23 15:33 12/20/23 15:33 12/20/23 15:33
Lab Results - Chemistry
12/20/23
13:45
BUN 30 H
Creatinine 0.7
Estimated Creat Clear 107
Microbiology Results
12/20/23 11:00 Fungal Culture - Preliminary
Knee - Left Culture in progress.
Positive cultures are reported as soon as detected.
Final report to follow in four to five weeks.
12/20/23 11:05 Fungal Culture - Preliminary
Tissue Culture in progress.
Positive cultures are reported as soon as detected.
Final report to follow in four to five weeks.
--- NOTE | 2023-12-20 16:36 | CON.ID ---
Consultation
-
Date/Time Consultation Requested: 12/20/23 9:49
Date/Time Consultation Performed: 12/20/23 16:36
Requesting Provider: Buffy albert
Performing Provider: Dr davis
Reason for Consultation: possible septic joint
Chief Complaint / Past History
Chief Complaint
purulent appearing L knee effusion
History of Present Illness
Mr Otoole is a 68 yearold male with history of RA on prednisone 15 mg, ITP who presented to his orthopedist for L knee pain, mild swelling, no fevers or chills, joint aspirated with purulent appearing fluid, cell count could not be done due to
clotting, no crystals were seen. a josé diff was done showing 95% granulocytes. patient was referred to the hospital for washout, cbc 12/15 13.9 wbc, hgb 11.4, plt 553, today joint fluid showed wbc 77K wbcs and 82% PMNs, monosodium urate crystals
seen, lyme pcr sent, tissue and wound culture both with rare wbcs and no organisms, 12/16 body fluid no growth at 72 hours. Patient currently on vancomycin and cefepime at my initial recommendation.
Past History
Additional Past Medical History:
as per hpi
Additional Past Surgical History:
splenectomy
bowel 'blockage'
Allergy History:
aspirin Allergy (Verified 12/20/23 08:36)
ITP
NSAIDS (Non-Steroidal Anti-Inflamma Allergy (Verified 12/20/23 08:36)
ITP
Penicillins Allergy (Verified 12/20/23 08:36)
Rash
Sulfa (Sulfonamide Antibiotics) Allergy (Verified 12/20/23 08:36)
Rash
Medications Reviewed: Yes
Social History
Tobacco: Non-Smoker
Alcohol: None
Drug: None
Family History
Family History: Not Pertinent
Review of Systems
Review of Systems
General: Negative Fever or Chills
All systems: All other systems were reviewed and were negative
Vital Signs
Temp Pulse Resp BP Pulse Ox
97.8 F 74 19 128/63 96
12/20/23 15:33 12/20/23 15:33 12/20/23 15:33 12/20/23 15:33 12/20/23 15:33
Physical Exam
Physical Exam
Constitutional: No Acute Distress
Cardiovascular: Regular Rate and S1/S2; Negative Murmur or Rub
Pulmonary: Clear and Symmetric; Negative Wheezes, Rales or Rhonchi
Gastrointestinal: Soft, Non Tender, Non Distended and Normal Bowel Sounds
Skin: Warm and Dry; Negative Rash or Jaundice
Wound: Other (dressings clean, dry, intact bilaterally - not taken down)
Lab / Diagnostic Study Results
12/20/23 13:45
12/20/23 13:45
Microbiology Results
Micro:
12/20/23 11:05 Tissue Culture - Pending
Tissue Gram Stain - Preliminary
12/20/23 11:00 Wound Culture - Pending
Knee - Left Gram Stain - Preliminary
12/20/23 11:00 Fungal Culture - Preliminary
Knee - Left Culture in progress.
Positive cultures are reported as soon as detected.
Final report to follow in four to five weeks.
12/20/23 11:05 Fungal Culture - Preliminary
Tissue Culture in progress.
Positive cultures are reported as soon as detected.
Final report to follow in four to five weeks.
12/20/23 11:05 Acid Fast Bacilli Smear - Pending
Tissue Acid Fast Bacilli Culture - Pending
12/20/23 11:05 Anaerobic Culture - Pending
Tissue
12/20/23 11:00 Anaerobic Culture - Pending
Synovial Fluid
12/20/23 08:44 MRSA Screen - Pending
Nose
Assessment / Plan
Gout Left Knee
- 12/16 body fluid cultures gram stain and culture negative
- body fluid analysis most consistent with gout
- while i initially hoped for a synovasure, with the available information it is not needed in my opinion
- I will also follow the lyme pcr but my clinical suspicion is low; he has a very remote history of lyme about 15 years ago which shouldnt affect a PCR
- stopped systemic antibiotics
Skin Tear R leg
- deep skin tear into the SQ fat, given moderate dose steroids I suggest keflex 500 mg PO QID for 5 more days as prophyalxis
Splenectomy
- hasnt had post splenectomy meningococcal or HIB vaccines
- follow up in my clinic in 6-8 weeks - nonurgent
- counseled to avoid tick heavy areas; if unexplained fevers he should call me
Care Review
Plan reviewed with: Other Provider (Fulginiti - cultures, abx)
[2023-12-20] MEDS: ROXICODONE 5 MG PO (16:58)
[2023-12-20 17:03] LABS: Erythrocyte Sed Rate 51 mm/hour (0-20)
--- NOTE | 2023-12-20 17:55 | PTCARENOTE ---
1330: pt received 2109. Aox3. 20g LH vanco running then NormR 75ml. scattered bruising generalized, regular diet order. pain level 2. bed low, call buckner in reach
--- NOTE | 2023-12-20 18:43 | W.DS.TRANS ---
DC Summary - Grants Analyst
-
Discharge Instructions:
Sleep Apnea Risk Intermediate
Discharge Diagnosis/Procedures Left knee pain, r/o septic joint/Left knee
arthroscopic washout. Closure of right thigh wound sustained after surgery
Diet No restrictions
Activity As tolerated
Driving Restrictions Not until seen by your Dr
Bathing Restrictions Keep dressings dry
Wound Care Keep dressing on right thigh
Instructions:
Stand-Alone Forms:
Changes to Home Medications: No
Discharge Medications:
DC Medications w/original date entered in [facility]
levothyroxine 50 mcg tablet 50 mcg PO DAILY Thyroid 11/03/22
acetaminophen 500 mg tablet (Tylenol Extra Strength) 1,000 mg PO QIDPRN PRN mild pain 11/08/22
ascorbate calcium (vitamin C) 500 mg tablet 500 mg PO DAILY Supplement 11/08/22
calcium carbonate 500 mg PO DAILY Supplement 11/08/22
prednisone 10 mg tablet 15 mg PO DIRECTED inflammation 11/08/22
therapeutic multivitamin 1 tab PO DAILY Supplement 11/08/22
vitamin B complex 1 tab PO DAILY Supplement 11/08/22
[place] 1 cap PO DAILY Supplement 06/27/23
iron 50 mg iron tablet 1 tab PO DAILY Supplement 06/27/23
oxycodone-acetaminophen 5 mg-325 mg tablet (Percocet) 1 tab PO QID PRN pain 12/18/23
pantoprazole 40 mg tablet,delayed release 40 mg PO HS Gastrointestinal Issue 12/18/23
cephalexin 500 mg capsule 500 mg PO QID Infection #20 caps 12/20/23
oxycodone 5 mg tablet 5 mg PO Q4HPRN PRN mild pain #10 tabs 12/20/23
Home Medication Changes
Pending Results: No
--- NOTE | 2023-12-20 18:43 | W.PN.UPDATE ---
Update Note
Progress Note Update
Appreciate Dr. Gooden regarding the patient post-op left knee. OK for D/c tonight with Keflex. Keflex and Oxycodone sent to the patient's outpatient pharmacy via [facility]. 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
May be WBAT. Appears to be possible, gout, but will follow Cx. Keflex Rx'd to cover right thigh wound sustained during surgery. Recommend outpatient follow-up with me Saturday-Saturday to next week. Dr. Gooden recommend outpatient follow-up in
6-8 weeks, sooner if needed, especially if patient develops constitutional symptoms
== END 2023-12-20 22:50 | disposition home or self-care (01) ==
LOC: SDS 06:14
PROVIDERS: Physician Assistant Surgical; ATTENDING PHYSICIAN Specialist; CONSULT PHYSICIAN Student in an Organized Health Care Education/Training Program
DX: M00.9 Pyogenic arthritis, unspecified (principal); M25.462 Effusion, left knee; M17.12 Unilateral primary osteoarthritis, left knee; M06.9 Rheumatoid arthritis, unspecified; D69.3 Immune thrombocytopenic purpura
CPT/HCPCS: 29883; 29871; 88305; 88312; 80048; 85014; 85018; 85652; 86140; 87015; 87070; 87075; 87102; 87116; 87176; 87205; 88342; 89051; 89060; 93005

== ENCOUNTER → 2023-12-23 10:32 | Outpatient (REF) | payer MEDICARE, OTHER, SELFPAY ==
[2023-12-23 11:22] LABS: % Basophils 0.3 % (0-2); % Immature Granulocytes 2.3 % (0-0.5); % Lymphocytes 2.7 % (20.5-51.1); % Monocytes 9.3 % (1.7-9.3); % Neutrophils 85.4 % (42.2-75.2); Absolute Basophils 0.1 10^3/uL (0-0.2); Absolute Immature Granulocytes 0.4 10^3/uL (0-0.05); Absolute Lymphocytes 0.5 10^3/uL (1.2-3.4); Absolute Monocytes 1.6 10^3/uL (0.1-0.6); Absolute Neutrophils 14.9 10^3/uL (1.4-6.5); Hematocrit 30.6 % (39.0-52.0); Mean Corp Hgb Conc. 32.7 g/dL (33.0-37.0); Mean Corpuscular Hgb 29.2 pg (27.0-31.0); Mean Corpuscular Volume 89.2 fL (80.0-94.0); Nucleated Red Blood Cells % 0.1 % (-); Red Blood Cell Count 3.43 10^6/uL (4.70-6.10); Red Cell Dist. Width 17.2 % (11.5-14.5); White Blood Cell Count 17.5 10^3/uL (4.8-10.8)
[2023-12-23 11:33] LABS: Mean Platelet Volume 13.6 fL (7.4-10.4); Platelet Count 66 10^3/uL (130-400)
== END ==
LOC: REG 10:32
PROVIDERS: ATTENDING PHYSICIAN Internal Medicine Hematology & Oncology; FAMILY PHYSICIAN Nurse Practitioner Adult Health
DX: D69.3 Immune thrombocytopenic purpura (principal); M06.9 Rheumatoid arthritis, unspecified; R10.84 Generalized abdominal pain; R14.0 Abdominal distension (gaseous); R18.8 Other ascites
CPT/HCPCS: 36415; 85025

== ENCOUNTER → 2023-12-30 10:14 | Outpatient (REF) | payer MEDICARE, OTHER, SELFPAY ==
[2023-12-30 11:16] LABS: Platelet Count 19 10^3/uL (130-400)
[2023-12-30 11:17] LABS: % Basophils 0.2 % (0-2); % Eosinophils 0.1 % (0-6); % Immature Granulocytes 4.1 % (0-0.5); % Lymphocytes 2.9 % (20.5-51.1); % Monocytes 10.4 % (1.7-9.3); % Neutrophils 82.3 % (42.2-75.2); Absolute Immature Granulocytes 0.7 10^3/uL (0-0.05); Absolute Lymphocytes 0.5 10^3/uL (1.2-3.4); Absolute Monocytes 1.7 10^3/uL (0.1-0.6); Absolute Neutrophils 13.8 10^3/uL (1.4-6.5); Hematocrit 31.3 % (39.0-52.0); Mean Corp Hgb Conc. 31.9 g/dL (33.0-37.0); Mean Corpuscular Hgb 27.9 pg (27.0-31.0); Mean Corpuscular Volume 87.4 fL (80.0-94.0); Nucleated Red Blood Cells % 0.6 % (-); Red Blood Cell Count 3.58 10^6/uL (4.70-6.10); Red Cell Dist. Width 17.2 % (11.5-14.5); White Blood Cell Count 16.7 10^3/uL (4.8-10.8)
== END ==
LOC: REG 10:14
PROVIDERS: ATTENDING PHYSICIAN Internal Medicine Hematology & Oncology; FAMILY PHYSICIAN Nurse Practitioner Adult Health
DX: D69.3 Immune thrombocytopenic purpura (principal); M06.9 Rheumatoid arthritis, unspecified; R10.84 Generalized abdominal pain; R14.0 Abdominal distension (gaseous); R18.8 Other ascites
CPT/HCPCS: 36415; 85025

== ENCOUNTER → 2024-01-07 11:14 | Outpatient (REF) | payer MEDICARE, OTHER, SELFPAY ==
[2024-01-07 12:52] LABS: % Basophils 0.3 % (0-2); % Eosinophils 0.1 % (0-6); % Immature Granulocytes 3.8 % (0-0.5); % Neutrophils 84.8 % (42.2-75.2); Absolute Immature Granulocytes 0.5 10^3/uL (0-0.05); Absolute Lymphocytes 0.6 10^3/uL (1.2-3.4); Absolute Neutrophils 11.9 10^3/uL (1.4-6.5); Hematocrit 34.5 % (39.0-52.0); Mean Corp Hgb Conc. 31.9 g/dL (33.0-37.0); Mean Corpuscular Hgb 28.8 pg (27.0-31.0); Mean Corpuscular Volume 90.3 fL (80.0-94.0); Nucleated Red Blood Cells % 0.5 % (-); Red Blood Cell Count 3.82 10^6/uL (4.70-6.10); Red Cell Dist. Width 17.5 % (11.5-14.5); White Blood Cell Count 14.1 10^3/uL (4.8-10.8)
== END ==
LOC: REG 11:14
PROVIDERS: ATTENDING PHYSICIAN Internal Medicine Hematology & Oncology; FAMILY PHYSICIAN Nurse Practitioner Adult Health
DX: D69.3 Immune thrombocytopenic purpura (principal); M06.9 Rheumatoid arthritis, unspecified; R10.84 Generalized abdominal pain; R14.0 Abdominal distension (gaseous); R18.8 Other ascites
CPT/HCPCS: 36415; 85025

== ENCOUNTER → 2024-01-08 10:58 | Outpatient (REF) | payer MEDICARE, OTHER, SELFPAY ==
[2024-01-08 11:43] LABS: % Basophils 0.3 % (0-2); % Immature Granulocytes 3.3 % (0-0.5); % Lymphocytes 2.9 % (20.5-51.1); % Monocytes 6.8 % (1.7-9.3); % Neutrophils 86.7 % (42.2-75.2); Absolute Basophils 0.1 10^3/uL (0-0.2); Absolute Immature Granulocytes 0.5 10^3/uL (0-0.05); Absolute Lymphocytes 0.4 10^3/uL (1.2-3.4); Absolute Neutrophils 12.6 10^3/uL (1.4-6.5); Hematocrit 35.9 % (39.0-52.0); Hemoglobin 11.3 g/dL (13.0-18.0); Mean Corp Hgb Conc. 31.5 g/dL (33.0-37.0); Mean Corpuscular Hgb 28.4 pg (27.0-31.0); Mean Corpuscular Volume 90.2 fL (80.0-94.0); Mean Platelet Volume 12.4 fL (7.4-10.4); Nucleated Red Blood Cells % 0.2 % (-); Red Blood Cell Count 3.98 10^6/uL (4.70-6.10); Red Cell Dist. Width 17.4 % (11.5-14.5); White Blood Cell Count 14.5 10^3/uL (4.8-10.8)
[2024-01-08 12:09] LABS: Platelet Count 298 10^3/uL (130-400)
== END ==
LOC: REG 10:58
PROVIDERS: ATTENDING PHYSICIAN Internal Medicine Hematology & Oncology; FAMILY PHYSICIAN Nurse Practitioner Adult Health
DX: D69.3 Immune thrombocytopenic purpura (principal); M06.9 Rheumatoid arthritis, unspecified; R10.84 Generalized abdominal pain; R14.0 Abdominal distension (gaseous); R18.8 Other ascites
CPT/HCPCS: 36415; 85025

== ENCOUNTER → 2024-01-15 10:28 | Outpatient (REF) | payer MEDICARE, OTHER, SELFPAY ==
[2024-01-15 12:13] LABS: % Basophils 0.5 % (0-2); % Eosinophils 0.1 % (0-6); % Immature Granulocytes 4.7 % (0-0.5); % Lymphocytes 3.2 % (20.5-51.1); % Monocytes 9.8 % (1.7-9.3); % Neutrophils 81.7 % (42.2-75.2); Absolute Basophils 0.1 10^3/uL (0-0.2); Absolute Immature Granulocytes 0.7 10^3/uL (0-0.05); Absolute Lymphocytes 0.5 10^3/uL (1.2-3.4); Absolute Monocytes 1.5 10^3/uL (0.1-0.6); Absolute Neutrophils 12.1 10^3/uL (1.4-6.5); Hematocrit 38.1 % (39.0-52.0); Hemoglobin 12.1 g/dL (13.0-18.0); Mean Corp Hgb Conc. 31.8 g/dL (33.0-37.0); Mean Corpuscular Hgb 28.1 pg (27.0-31.0); Mean Corpuscular Volume 88.4 fL (80.0-94.0); Mean Platelet Volume 12.3 fL (7.4-10.4); Nucleated Red Blood Cells % 0.2 % (-); Red Blood Cell Count 4.31 10^6/uL (4.70-6.10); Red Cell Dist. Width 17.5 % (11.5-14.5); White Blood Cell Count 14.8 10^3/uL (4.8-10.8)
[2024-01-15 12:14] LABS: Platelet Count 337 10^3/uL (130-400)
== END ==
LOC: REG 10:28
PROVIDERS: ATTENDING PHYSICIAN Internal Medicine Hematology & Oncology; FAMILY PHYSICIAN Nurse Practitioner Adult Health
DX: D69.3 Immune thrombocytopenic purpura (principal); M06.9 Rheumatoid arthritis, unspecified; R10.84 Generalized abdominal pain; R14.0 Abdominal distension (gaseous); R18.8 Other ascites
CPT/HCPCS: 36415; 85025

== ENCOUNTER → 2024-01-22 10:22 | Outpatient (REF) | payer MEDICARE, OTHER, SELFPAY ==
[2024-01-22 12:04] LABS: % Basophils 0.7 % (0-2); % Eosinophils 0.1 % (0-6); % Immature Granulocytes 3.9 % (0-0.5); % Lymphocytes 4.5 % (20.5-51.1); % Neutrophils 79.8 % (42.2-75.2); Absolute Basophils 0.1 10^3/uL (0-0.2); Absolute Immature Granulocytes 0.5 10^3/uL (0-0.05); Absolute Lymphocytes 0.6 10^3/uL (1.2-3.4); Absolute Monocytes 1.5 10^3/uL (0.1-0.6); Absolute Neutrophils 10.9 10^3/uL (1.4-6.5); Hematocrit 38.2 % (39.0-52.0); Hemoglobin 12.1 g/dL (13.0-18.0); Mean Corp Hgb Conc. 31.7 g/dL (33.0-37.0); Mean Corpuscular Hgb 28.9 pg (27.0-31.0); Mean Corpuscular Volume 91.2 fL (80.0-94.0); Nucleated Red Blood Cells % 0.1 % (-); Red Blood Cell Count 4.19 10^6/uL (4.70-6.10); Red Cell Dist. Width 16.9 % (11.5-14.5); White Blood Cell Count 13.6 10^3/uL (4.8-10.8)
[2024-01-22 13:16] LABS: Mean Platelet Volume 11.4 fL (7.4-10.4)
[2024-01-22 13:17] LABS: Platelet Count 735 10^3/uL (130-400)
== END ==
LOC: REG 10:22
PROVIDERS: ATTENDING PHYSICIAN Internal Medicine Hematology & Oncology; FAMILY PHYSICIAN Nurse Practitioner Adult Health
DX: D69.3 Immune thrombocytopenic purpura (principal); M06.9 Rheumatoid arthritis, unspecified; R10.84 Generalized abdominal pain; R14.0 Abdominal distension (gaseous); R18.8 Other ascites
CPT/HCPCS: 36415; 85025

== ENCOUNTER → 2024-01-29 10:26 | Outpatient (REF) | payer MEDICARE, OTHER, SELFPAY ==
[2024-01-29 11:08] LABS: % Basophils 0.6 % (0-2); % Eosinophils 0.2 % (0-6); % Immature Granulocytes 2.3 % (0-0.5); % Lymphocytes 5.7 % (20.5-51.1); % Monocytes 9.3 % (1.7-9.3); % Neutrophils 81.9 % (42.2-75.2); Absolute Basophils 0.1 10^3/uL (0-0.2); Absolute Immature Granulocytes 0.3 10^3/uL (0-0.05); Absolute Lymphocytes 0.7 10^3/uL (1.2-3.4); Absolute Monocytes 1.1 10^3/uL (0.1-0.6); Absolute Neutrophils 10.1 10^3/uL (1.4-6.5); Hematocrit 37.3 % (39.0-52.0); Hemoglobin 11.9 g/dL (13.0-18.0); Mean Corp Hgb Conc. 31.9 g/dL (33.0-37.0); Mean Corpuscular Hgb 28.5 pg (27.0-31.0); Mean Corpuscular Volume 89.4 fL (80.0-94.0); Nucleated Red Blood Cells % 0 % (-); Red Blood Cell Count 4.17 10^6/uL (4.70-6.10); Red Cell Dist. Width 16.6 % (11.5-14.5); White Blood Cell Count 12.3 10^3/uL (4.8-10.8)
[2024-01-29 12:00] LABS: Mean Platelet Volume 10.8 fL (7.4-10.4)
[2024-01-29 12:01] LABS: Platelet Count 621 10^3/uL (130-400)
== END ==
LOC: REG 10:26
PROVIDERS: ATTENDING PHYSICIAN Internal Medicine Hematology & Oncology; FAMILY PHYSICIAN Nurse Practitioner Adult Health
DX: D69.3 Immune thrombocytopenic purpura (principal); M06.9 Rheumatoid arthritis, unspecified; R10.84 Generalized abdominal pain; R14.0 Abdominal distension (gaseous); R18.8 Other ascites
CPT/HCPCS: 36415; 85025

== ENCOUNTER → 2024-02-05 10:14 | Outpatient (REF) | payer MEDICARE, OTHER, SELFPAY ==
[2024-02-05 11:21] LABS: % Basophils 0.7 % (0-2); % Eosinophils 0.2 % (0-6); % Immature Granulocytes 2.2 % (0-0.5); % Lymphocytes 5.3 % (20.5-51.1); % Monocytes 9.4 % (1.7-9.3); % Neutrophils 82.2 % (42.2-75.2); Absolute Basophils 0.1 10^3/uL (0-0.2); Absolute Immature Granulocytes 0.3 10^3/uL (0-0.05); Absolute Lymphocytes 0.7 10^3/uL (1.2-3.4); Absolute Monocytes 1.1 10^3/uL (0.1-0.6); Hemoglobin 12.5 g/dL (13.0-18.0); Mean Corp Hgb Conc. 32.9 g/dL (33.0-37.0); Mean Corpuscular Hgb 28.6 pg (27.0-31.0); Mean Platelet Volume 11.9 fL (7.4-10.4); Nucleated Red Blood Cells % 0 % (-); Red Blood Cell Count 4.37 10^6/uL (4.70-6.10); Red Cell Dist. Width 16.1 % (11.5-14.5); White Blood Cell Count 12.2 10^3/uL (4.8-10.8)
[2024-02-05 11:24] LABS: Platelet Count 139 10^3/uL (130-400)
== END ==
LOC: REG 10:14
PROVIDERS: ATTENDING PHYSICIAN Internal Medicine Hematology & Oncology; FAMILY PHYSICIAN Nurse Practitioner Adult Health
DX: D69.3 Immune thrombocytopenic purpura (principal); M06.9 Rheumatoid arthritis, unspecified; R10.84 Generalized abdominal pain; R14.0 Abdominal distension (gaseous); R18.8 Other ascites
CPT/HCPCS: 36415; 85025

== ENCOUNTER → 2024-02-07 15:59 | Outpatient (REF) | payer MEDICARE, OTHER, SELFPAY | LOC: RCS 15:59 | PROVIDERS: ATTENDING PHYSICIAN Internal Medicine Cardiovascular Disease; FAMILY PHYSICIAN Nurse Practitioner Adult Health | DX: R06.02 Shortness of breath (principal) | CPT/HCPCS: 93306 ==

== ENCOUNTER → 2024-02-14 11:26 | Outpatient (REF) | payer MEDICARE, OTHER, SELFPAY ==
[2024-02-14 12:17] LABS: % Basophils 0.5 % (0-2); % Eosinophils 0.2 % (0-6); % Immature Granulocytes 2.1 % (0-0.5); % Lymphocytes 5.9 % (20.5-51.1); % Monocytes 10.5 % (1.7-9.3); % Neutrophils 80.8 % (42.2-75.2); Absolute Basophils 0.1 10^3/uL (0-0.2); Absolute Immature Granulocytes 0.3 10^3/uL (0-0.05); Absolute Lymphocytes 0.8 10^3/uL (1.2-3.4); Absolute Monocytes 1.4 10^3/uL (0.1-0.6); Absolute Neutrophils 10.6 10^3/uL (1.4-6.5); Hematocrit 39.4 % (39.0-52.0); Hemoglobin 12.6 g/dL (13.0-18.0); Mean Corpuscular Hgb 28.8 pg (27.0-31.0); Mean Platelet Volume 12.2 fL (7.4-10.4); Nucleated Red Blood Cells % 0 % (-); Red Blood Cell Count 4.38 10^6/uL (4.70-6.10); Red Cell Dist. Width 15.8 % (11.5-14.5); White Blood Cell Count 13.2 10^3/uL (4.8-10.8)
[2024-02-14 12:18] LABS: Platelet Count 307 10^3/uL (130-400)
== END ==
LOC: REG 11:26
PROVIDERS: ATTENDING PHYSICIAN Internal Medicine Hematology & Oncology; FAMILY PHYSICIAN Nurse Practitioner Adult Health
DX: D69.3 Immune thrombocytopenic purpura (principal); M06.9 Rheumatoid arthritis, unspecified; R10.84 Generalized abdominal pain; R14.0 Abdominal distension (gaseous); R18.8 Other ascites
CPT/HCPCS: 36415; 85025

== ENCOUNTER → 2024-02-21 06:51 | Outpatient (REF) | payer MEDICARE, OTHER, SELFPAY ==
[2024-02-21 08:06] LABS: NT-proBNP 743 pg/ml
[2024-02-21 08:26] LABS: ALT (SGPT) 25 U/L (0-50); AST (SGOT) 29 U/L (17-59); Albumin 3.6 g/dl (3.5-5.0); Alkaline Phosphatase 104 U/L (38-126); Blood Urea Nitrogen 25 mg/dl (9-20); Calcium 8.9 mg/dl (8.4-10.2); Carbon Dioxide 24 mmol/L (22-30); Chloride 108 mmol/L (98-107); Glucose 79 mg/dl (70-99); HDL Cholesterol 26 mg/dl; LDL Cholesterol, Calculated 99 mg/dl; Sodium 144 mmol/L (135-145); Total Bilirubin 0.3 mg/dl (0.2-1.3); Total Cholesterol 154 mg/dl (50-199); Total Protein 6.2 g/dl (6.3-8.2); Triglyceride 147 mg/dl (10-149); Very Low Density Lipoprotein 29 mg/dl (0-30); eGFR > 60.00
[2024-02-21 08:58] LABS: Hematocrit 40.4 % (39.0-52.0); Mean Corp Hgb Conc. 32.2 g/dL (33.0-37.0); Mean Corpuscular Hgb 28.7 pg (27.0-31.0); Mean Corpuscular Volume 89.2 fL (80.0-94.0); Red Blood Cell Count 4.53 10^6/uL (4.70-6.10); White Blood Cell Count 11.8 10^3/uL (4.8-10.8)
[2024-02-21 08:59] LABS: Mean Platelet Volume 13.4 fL (7.4-10.4); Red Cell Dist. Width 15.5 % (11.5-14.5)
[2024-02-21 09:00] LABS: % Eosinophils 1.3 % (0-6); % Immature Granulocytes 3.7 % (0-0.5); % Lymphocytes 10.4 % (20.5-51.1); % Monocytes 13.4 % (1.7-9.3); Absolute Basophils 0.1 10^3/uL (0-0.2); Absolute Eosinophils 0.2 10^3/uL (0-0.7); Absolute Immature Granulocytes 0.4 10^3/uL (0-0.05); Absolute Lymphocytes 1.2 10^3/uL (1.2-3.4); Absolute Monocytes 1.6 10^3/uL (0.1-0.6); Absolute Neutrophils 8.2 10^3/uL (1.4-6.5); Nucleated Red Blood Cells % 0 % (-); Platelet Count 124 10^3/uL (130-400)
== END ==
LOC: REG 06:51
PROVIDERS: ATTENDING PHYSICIAN Internal Medicine Cardiovascular Disease; FAMILY PHYSICIAN Nurse Practitioner Adult Health; REFERRING PHYSICIAN Internal Medicine Hematology & Oncology
DX: R06.02 Shortness of breath (principal); R60.0 Localized edema; R14.0 Abdominal distension (gaseous); E03.9 Hypothyroidism, unspecified
CPT/HCPCS: 36415; 80053; 80061; 83880; 85025

== ENCOUNTER → 2024-02-24 08:03 | Outpatient (REF) | payer MEDICARE, OTHER, SELFPAY | LOC: RAD 08:03 | PROVIDERS: ATTENDING PHYSICIAN Internal Medicine Cardiovascular Disease; FAMILY PHYSICIAN Nurse Practitioner Adult Health | DX: R06.02 Shortness of breath (principal); R60.0 Localized edema; R14.0 Abdominal distension (gaseous) | CPT/HCPCS: 74177; Q9967 ==

== ENCOUNTER → 2024-02-28 10:39 | Outpatient (REF) | payer MEDICARE, OTHER, SELFPAY ==
[2024-02-28 11:13] LABS: % Basophils 0.4 % (0-2); % Eosinophils 0.2 % (0-6); % Immature Granulocytes 2.2 % (0-0.5); % Lymphocytes 5.2 % (20.5-51.1); % Monocytes 12.1 % (1.7-9.3); % Neutrophils 79.9 % (42.2-75.2); Absolute Basophils 0.1 10^3/uL (0-0.2); Absolute Immature Granulocytes 0.3 10^3/uL (0-0.05); Absolute Lymphocytes 0.7 10^3/uL (1.2-3.4); Absolute Monocytes 1.5 10^3/uL (0.1-0.6); Absolute Neutrophils 9.9 10^3/uL (1.4-6.5); Hematocrit 39.1 % (39.0-52.0); Hemoglobin 12.7 g/dL (13.0-18.0); Mean Corp Hgb Conc. 32.5 g/dL (33.0-37.0); Mean Corpuscular Hgb 28.2 pg (27.0-31.0); Mean Corpuscular Volume 86.7 fL (80.0-94.0); Nucleated Red Blood Cells % 0 % (-); Red Blood Cell Count 4.51 10^6/uL (4.70-6.10); Red Cell Dist. Width 15.5 % (11.5-14.5); White Blood Cell Count 12.4 10^3/uL (4.8-10.8)
[2024-02-28 11:23] LABS: Mean Platelet Volume 11.9 fL (7.4-10.4); Platelet Count 198 10^3/uL (130-400)
== END ==
LOC: REG 10:39
PROVIDERS: ATTENDING PHYSICIAN Internal Medicine Hematology & Oncology; FAMILY PHYSICIAN Nurse Practitioner Adult Health
DX: D69.3 Immune thrombocytopenic purpura (principal); M06.9 Rheumatoid arthritis, unspecified; R10.84 Generalized abdominal pain; R14.0 Abdominal distension (gaseous); R18.8 Other ascites
CPT/HCPCS: 36415; 85025

== ENCOUNTER → 2024-03-06 11:27 | Outpatient (REF) | payer MEDICARE, OTHER, SELFPAY ==
[2024-03-06 12:31] LABS: % Basophils 0.5 % (0-2); % Eosinophils 0.2 % (0-6); % Immature Granulocytes 2.1 % (0-0.5); % Lymphocytes 5.7 % (20.5-51.1); % Monocytes 10.7 % (1.7-9.3); % Neutrophils 80.8 % (42.2-75.2); Absolute Basophils 0.1 10^3/uL (0-0.2); Absolute Immature Granulocytes 0.3 10^3/uL (0-0.05); Absolute Lymphocytes 0.8 10^3/uL (1.2-3.4); Absolute Monocytes 1.4 10^3/uL (0.1-0.6); Absolute Neutrophils 10.6 10^3/uL (1.4-6.5); Hematocrit 40.5 % (39.0-52.0); Mean Corp Hgb Conc. 32.1 g/dL (33.0-37.0); Mean Corpuscular Hgb 28.4 pg (27.0-31.0); Mean Corpuscular Volume 88.4 fL (80.0-94.0); Nucleated Red Blood Cells % 0 % (-); Platelet Count 119 10^3/uL (130-400); Red Blood Cell Count 4.58 10^6/uL (4.70-6.10); Red Cell Dist. Width 15.3 % (11.5-14.5); White Blood Cell Count 13.1 10^3/uL (4.8-10.8)
== END ==
LOC: REG 11:27
PROVIDERS: ATTENDING PHYSICIAN Internal Medicine Hematology & Oncology; FAMILY PHYSICIAN Nurse Practitioner Adult Health
DX: D69.3 Immune thrombocytopenic purpura (principal); M06.9 Rheumatoid arthritis, unspecified; R10.84 Generalized abdominal pain; R14.0 Abdominal distension (gaseous); R18.8 Other ascites
CPT/HCPCS: 36415; 85025

== ENCOUNTER → 2024-03-13 10:58 | Outpatient (REF) | payer MEDICARE, OTHER, SELFPAY ==
[2024-03-13 12:56] LABS: % Basophils 0.8 % (0-2); % Eosinophils 0.2 % (0-6); % Immature Granulocytes 2.3 % (0-0.5); % Lymphocytes 5.5 % (20.5-51.1); % Monocytes 9.9 % (1.7-9.3); % Neutrophils 81.3 % (42.2-75.2); Absolute Basophils 0.1 10^3/uL (0-0.2); Absolute Immature Granulocytes 0.3 10^3/uL (0-0.05); Absolute Lymphocytes 0.8 10^3/uL (1.2-3.4); Absolute Monocytes 1.4 10^3/uL (0.1-0.6); Absolute Neutrophils 11.5 10^3/uL (1.4-6.5); Hematocrit 42.9 % (39.0-52.0); Mean Corp Hgb Conc. 32.6 g/dL (33.0-37.0); Mean Corpuscular Volume 88.8 fL (80.0-94.0); Nucleated Red Blood Cells % 0 % (-); Platelet Count 119 10^3/uL (130-400); Red Blood Cell Count 4.83 10^6/uL (4.70-6.10); Red Cell Dist. Width 15.2 % (11.5-14.5); White Blood Cell Count 14.2 10^3/uL (4.8-10.8)
== END ==
LOC: REG 10:58
PROVIDERS: ATTENDING PHYSICIAN Internal Medicine Hematology & Oncology; FAMILY PHYSICIAN Nurse Practitioner Adult Health
DX: D69.3 Immune thrombocytopenic purpura (principal); M06.9 Rheumatoid arthritis, unspecified; R10.84 Generalized abdominal pain; R14.0 Abdominal distension (gaseous); R18.8 Other ascites
CPT/HCPCS: 36415; 85025

== ENCOUNTER → 2024-03-23 10:30 | Outpatient (REF) | payer MEDICARE, OTHER, SELFPAY ==
[2024-03-23 11:33] LABS: % Basophils 0.5 % (0-2); % Eosinophils 0.3 % (0-6); % Immature Granulocytes 2.1 % (0-0.5); % Lymphocytes 5.6 % (20.5-51.1); % Monocytes 10.7 % (1.7-9.3); % Neutrophils 80.8 % (42.2-75.2); Absolute Basophils 0.1 10^3/uL (0-0.2); Absolute Immature Granulocytes 0.3 10^3/uL (0-0.05); Absolute Lymphocytes 0.7 10^3/uL (1.2-3.4); Absolute Monocytes 1.3 10^3/uL (0.1-0.6); Absolute Neutrophils 9.9 10^3/uL (1.4-6.5); Hematocrit 42.7 % (39.0-52.0); Mean Corp Hgb Conc. 32.8 g/dL (33.0-37.0); Mean Corpuscular Hgb 28.9 pg (27.0-31.0); Mean Corpuscular Volume 88.2 fL (80.0-94.0); Nucleated Red Blood Cells % 0 % (-); Red Blood Cell Count 4.84 10^6/uL (4.70-6.10); Red Cell Dist. Width 14.9 % (11.5-14.5); White Blood Cell Count 12.3 10^3/uL (4.8-10.8)
[2024-03-23 11:36] LABS: Normal RBC Morphology No; Platelet Count 7 10^3/uL (130-400)
[2024-03-23 11:37] LABS: Acanthocytes 1+; Hypochromasia FEW; Ovalocytes 1+; Polychromasia 1+; Schistocytes 1+
== END ==
LOC: REG 10:30
PROVIDERS: ATTENDING PHYSICIAN Internal Medicine Hematology & Oncology; FAMILY PHYSICIAN Nurse Practitioner Adult Health
DX: D69.3 Immune thrombocytopenic purpura (principal); M06.9 Rheumatoid arthritis, unspecified; R10.84 Generalized abdominal pain; R14.0 Abdominal distension (gaseous); R18.8 Other ascites
CPT/HCPCS: 36415; 85025

== ENCOUNTER → 2024-03-30 10:42 | Outpatient (REF) | payer MEDICARE, OTHER, SELFPAY ==
[2024-03-30 11:32] LABS: % Basophils 0.3 % (0-2); % Eosinophils 0.1 % (0-6); % Immature Granulocytes 2.2 % (0-0.5); % Lymphocytes 2.2 % (20.5-51.1); % Monocytes 9.5 % (1.7-9.3); % Neutrophils 85.7 % (42.2-75.2); Absolute Basophils 0.1 10^3/uL (0-0.2); Absolute Immature Granulocytes 0.3 10^3/uL (0-0.05); Absolute Lymphocytes 0.3 10^3/uL (1.2-3.4); Absolute Monocytes 1.5 10^3/uL (0.1-0.6); Absolute Neutrophils 13.5 10^3/uL (1.4-6.5); Hematocrit 38.3 % (39.0-52.0); Hemoglobin 12.8 g/dL (13.0-18.0); Mean Corp Hgb Conc. 33.4 g/dL (33.0-37.0); Mean Corpuscular Hgb 29.2 pg (27.0-31.0); Mean Corpuscular Volume 87.2 fL (80.0-94.0); Nucleated Red Blood Cells % 0.3 % (-); Red Blood Cell Count 4.39 10^6/uL (4.70-6.10); White Blood Cell Count 15.7 10^3/uL (4.8-10.8)
[2024-03-30 11:54] LABS: Platelet Count 13 10^3/uL (130-400)
== END ==
LOC: REG 10:42
PROVIDERS: ATTENDING PHYSICIAN Internal Medicine Hematology & Oncology; FAMILY PHYSICIAN Nurse Practitioner Adult Health
DX: D69.3 Immune thrombocytopenic purpura (principal); M06.9 Rheumatoid arthritis, unspecified; R10.84 Generalized abdominal pain; R14.0 Abdominal distension (gaseous); R18.8 Other ascites
CPT/HCPCS: 36415; 85025

== ENCOUNTER → 2024-04-06 11:29 | Outpatient (REF) | payer MEDICARE, OTHER, SELFPAY ==
[2024-04-06 12:08] LABS: Hematocrit 40.6 % (39.0-52.0); Hemoglobin 13.3 g/dL (13.0-18.0); Mean Corp Hgb Conc. 32.8 g/dL (33.0-37.0); Mean Corpuscular Hgb 28.5 pg (27.0-31.0); Mean Corpuscular Volume 86.9 fL (80.0-94.0); Red Blood Cell Count 4.67 10^6/uL (4.70-6.10); Red Cell Dist. Width 15.6 % (11.5-14.5); White Blood Cell Count 19.5 10^3/uL (4.8-10.8)
[2024-04-06 12:49] LABS: Platelet Count 463 10^3/uL (130-400)
[2024-04-06 12:50] LABS: % Basophils 0.5 % (0-2); % Eosinophils 0.1 % (0-6); % Lymphocytes 2.6 % (20.5-51.1); % Monocytes 7.4 % (1.7-9.3); % Neutrophils 82.8 % (42.2-75.2); Mean Platelet Volume 12.6 fL (7.4-10.4)
[2024-04-06 12:51] LABS: % Immature Granulocytes 6.6 % (0-0.5); Absolute Basophils 0.1 10^3/uL (0-0.2); Absolute Immature Granulocytes 1.3 10^3/uL (0-0.05); Absolute Lymphocytes 0.5 10^3/uL (1.2-3.4); Absolute Monocytes 1.4 10^3/uL (0.1-0.6); Absolute Neutrophils 16.2 10^3/uL (1.4-6.5); Nucleated Red Blood Cells % 0.3 % (-)
== END ==
LOC: REG 11:29
PROVIDERS: ATTENDING PHYSICIAN Internal Medicine Hematology & Oncology; FAMILY PHYSICIAN Nurse Practitioner Adult Health
DX: D69.3 Immune thrombocytopenic purpura (principal); M06.9 Rheumatoid arthritis, unspecified; R10.84 Generalized abdominal pain; R14.0 Abdominal distension (gaseous); R18.8 Other ascites
CPT/HCPCS: 36415; 85025

== ENCOUNTER → 2024-04-13 10:55 | Outpatient (REF) | payer MEDICARE, OTHER, SELFPAY ==
[2024-04-13 11:38] LABS: % Basophils 0.5 % (0-2); % Eosinophils 0.1 % (0-6); % Immature Granulocytes 3.8 % (0-0.5); % Lymphocytes 4.6 % (20.5-51.1); % Monocytes 10.4 % (1.7-9.3); % Neutrophils 80.6 % (42.2-75.2); Absolute Basophils 0.1 10^3/uL (0-0.2); Absolute Immature Granulocytes 0.6 10^3/uL (0-0.05); Absolute Lymphocytes 0.7 10^3/uL (1.2-3.4); Absolute Monocytes 1.5 10^3/uL (0.1-0.6); Absolute Neutrophils 11.8 10^3/uL (1.4-6.5); Hematocrit 40.3 % (39.0-52.0); Mean Corp Hgb Conc. 32.3 g/dL (33.0-37.0); Mean Corpuscular Hgb 28.3 pg (27.0-31.0); Mean Corpuscular Volume 87.6 fL (80.0-94.0); Mean Platelet Volume 10.4 fL (7.4-10.4); Nucleated Red Blood Cells % 0 % (-); Platelet Count 630 10^3/uL (130-400); Red Cell Dist. Width 15.6 % (11.5-14.5); White Blood Cell Count 14.6 10^3/uL (4.8-10.8)
== END ==
LOC: REG 10:55
PROVIDERS: ATTENDING PHYSICIAN Internal Medicine Hematology & Oncology; FAMILY PHYSICIAN Nurse Practitioner Adult Health
DX: D69.3 Immune thrombocytopenic purpura (principal); M06.9 Rheumatoid arthritis, unspecified; R10.84 Generalized abdominal pain; R14.0 Abdominal distension (gaseous); R18.8 Other ascites
CPT/HCPCS: 36415; 85025

== ENCOUNTER → 2024-04-20 11:19 | Outpatient (REF) | payer MEDICARE, OTHER, SELFPAY ==
[2024-04-20 12:19] LABS: Hematocrit 39.4 % (39.0-52.0); Hemoglobin 13.1 g/dL (13.0-18.0); Mean Corp Hgb Conc. 33.2 g/dL (33.0-37.0); Mean Corpuscular Hgb 28.8 pg (27.0-31.0); Mean Corpuscular Volume 86.6 fL (80.0-94.0); Mean Platelet Volume 12.7 fL (7.4-10.4); Platelet Count 96 10^3/uL (130-400); Red Blood Cell Count 4.55 10^6/uL (4.70-6.10); Red Cell Dist. Width 15.5 % (11.5-14.5); White Blood Cell Count 14.4 10^3/uL (4.8-10.8)
[2024-04-20 14:14] LABS: % Basophils 0.2 % (0-2); % Eosinophils 0.1 % (0-6); % Immature Granulocytes 4.8 % (0-0.5); % Lymphocytes 4.5 % (20.5-51.1); % Monocytes 11.6 % (1.7-9.3); % Neutrophils 78.8 % (42.2-75.2); Absolute Immature Granulocytes 0.7 10^3/uL (0-0.05); Absolute Lymphocytes 0.7 10^3/uL (1.2-3.4); Absolute Monocytes 1.7 10^3/uL (0.1-0.6); Absolute Neutrophils 11.4 10^3/uL (1.4-6.5); Nucleated Red Blood Cells % 0 % (-)
== END ==
LOC: REG 11:19
PROVIDERS: ATTENDING PHYSICIAN Internal Medicine Hematology & Oncology; FAMILY PHYSICIAN Nurse Practitioner Adult Health
DX: D69.3 Immune thrombocytopenic purpura (principal); M06.9 Rheumatoid arthritis, unspecified; R10.84 Generalized abdominal pain; R14.0 Abdominal distension (gaseous); R18.8 Other ascites
CPT/HCPCS: 36415; 85025

== ENCOUNTER → 2024-04-27 10:16 | Outpatient (REF) | payer MEDICARE, OTHER, SELFPAY ==
[2024-04-27 13:31] LABS: % Basophils 0.7 % (0-2); % Eosinophils 0.2 % (0-6); % Lymphocytes 5.4 % (20.5-51.1); % Neutrophils 77.7 % (42.2-75.2); Absolute Basophils 0.1 10^3/uL (0-0.2); Absolute Immature Granulocytes 0.6 10^3/uL (0-0.05); Absolute Lymphocytes 0.8 10^3/uL (1.2-3.4); Absolute Monocytes 1.8 10^3/uL (0.1-0.6); Absolute Neutrophils 11.5 10^3/uL (1.4-6.5); Hematocrit 41.5 % (39.0-52.0); Hemoglobin 13.6 g/dL (13.0-18.0); Mean Corp Hgb Conc. 32.8 g/dL (33.0-37.0); Mean Corpuscular Hgb 28.7 pg (27.0-31.0); Mean Corpuscular Volume 87.6 fL (80.0-94.0); Nucleated Red Blood Cells % 0 % (-); Platelet Count 74 10^3/uL (130-400); Red Blood Cell Count 4.74 10^6/uL (4.70-6.10); Red Cell Dist. Width 15.8 % (11.5-14.5); White Blood Cell Count 14.8 10^3/uL (4.8-10.8)
== END ==
LOC: RAD 10:16
PROVIDERS: ATTENDING PHYSICIAN Internal Medicine Cardiovascular Disease; FAMILY PHYSICIAN Nurse Practitioner Adult Health; OTHER PHYSICIAN Internal Medicine Hematology & Oncology; REFERRING PHYSICIAN Registered Nurse
DX: R60.0 Localized edema (principal); I70.203 Unspecified atherosclerosis of native arteries of extremities, bilateral legs; D69.3 Immune thrombocytopenic purpura; M06.9 Rheumatoid arthritis, unspecified; R10.84 Generalized abdominal pain; R14.0 Abdominal distension (gaseous); R18.8 Other ascites
CPT/HCPCS: 36415; 85025; 93922; 93925; 93970

== ENCOUNTER → 2024-05-04 11:17 | Outpatient (REF) | payer MEDICARE, OTHER, SELFPAY ==
[2024-05-04 13:21] LABS: % Basophils 0.5 % (0-2); % Eosinophils 0.2 % (0-6); % Lymphocytes 5.4 % (20.5-51.1); % Monocytes 11.1 % (1.7-9.3); % Neutrophils 76.8 % (42.2-75.2); Absolute Basophils 0.1 10^3/uL (0-0.2); Absolute Immature Granulocytes 0.8 10^3/uL (0-0.05); Absolute Lymphocytes 0.7 10^3/uL (1.2-3.4); Absolute Monocytes 1.4 10^3/uL (0.1-0.6); Absolute Neutrophils 9.9 10^3/uL (1.4-6.5); Hematocrit 40.5 % (39.0-52.0); Hemoglobin 13.2 g/dL (13.0-18.0); Mean Corp Hgb Conc. 32.6 g/dL (33.0-37.0); Mean Corpuscular Hgb 28.4 pg (27.0-31.0); Mean Corpuscular Volume 87.1 fL (80.0-94.0); Mean Platelet Volume 12.4 fL (7.4-10.4); Nucleated Red Blood Cells % 0 % (-); Platelet Count 348 10^3/uL (130-400); Red Blood Cell Count 4.65 10^6/uL (4.70-6.10); Red Cell Dist. Width 15.8 % (11.5-14.5); White Blood Cell Count 12.9 10^3/uL (4.8-10.8)
== END ==
LOC: REG 11:17
PROVIDERS: ATTENDING PHYSICIAN Internal Medicine Hematology & Oncology; FAMILY PHYSICIAN Nurse Practitioner Adult Health
DX: D69.3 Immune thrombocytopenic purpura (principal); M06.9 Rheumatoid arthritis, unspecified; R10.84 Generalized abdominal pain; R14.0 Abdominal distension (gaseous); R18.8 Other ascites
CPT/HCPCS: 36415; 85025

== ENCOUNTER → 2024-05-12 12:05 | Outpatient (REF) | payer MEDICARE, OTHER, SELFPAY ==
[2024-05-12 13:03] LABS: % Basophils 0.4 % (0-2); % Eosinophils 0.1 % (0-6); % Immature Granulocytes 2.6 % (0-0.5); % Lymphocytes 5.7 % (20.5-51.1); % Monocytes 12.4 % (1.7-9.3); % Neutrophils 78.8 % (42.2-75.2); Absolute Basophils 0.1 10^3/uL (0-0.2); Absolute Immature Granulocytes 0.4 10^3/uL (0-0.05); Absolute Lymphocytes 0.8 10^3/uL (1.2-3.4); Absolute Monocytes 1.7 10^3/uL (0.1-0.6); Absolute Neutrophils 10.7 10^3/uL (1.4-6.5); Hemoglobin 12.6 g/dL (13.0-18.0); Mean Corp Hgb Conc. 32.3 g/dL (33.0-37.0); Mean Corpuscular Hgb 28.1 pg (27.0-31.0); Mean Corpuscular Volume 87.1 fL (80.0-94.0); Mean Platelet Volume 11.1 fL (7.4-10.4); Nucleated Red Blood Cells % 0 % (-); Platelet Count 274 10^3/uL (130-400); Red Blood Cell Count 4.48 10^6/uL (4.70-6.10); Red Cell Dist. Width 15.6 % (11.5-14.5); White Blood Cell Count 13.6 10^3/uL (4.8-10.8)
== END ==
LOC: REG 12:05
PROVIDERS: ATTENDING PHYSICIAN Internal Medicine Hematology & Oncology
DX: D69.3 Immune thrombocytopenic purpura (principal); M06.9 Rheumatoid arthritis, unspecified; R10.84 Generalized abdominal pain; R14.0 Abdominal distension (gaseous); R18.8 Other ascites
CPT/HCPCS: 36415; 85025

== ENCOUNTER → 2024-05-21 11:43 | Outpatient (REF) | payer MEDICARE, OTHER, SELFPAY ==
[2024-05-21 13:13] LABS: % Basophils 0.8 % (0-2); % Eosinophils 0.2 % (0-6); % Immature Granulocytes 5.3 % (0-0.5); % Lymphocytes 4.7 % (20.5-51.1); % Monocytes 9.5 % (1.7-9.3); Absolute Basophils 0.1 10^3/uL (0-0.2); Absolute Immature Granulocytes 0.9 10^3/uL (0-0.05); Absolute Lymphocytes 0.8 10^3/uL (1.2-3.4); Absolute Monocytes 1.5 10^3/uL (0.1-0.6); Absolute Neutrophils 12.7 10^3/uL (1.4-6.5); Hemoglobin 13.4 g/dL (13.0-18.0); Nucleated Red Blood Cells % 0.1 % (-); Red Blood Cell Count 4.66 10^6/uL (4.70-6.10)
[2024-05-21 14:24] LABS: Hematocrit 40.4 % (39.0-52.0); Mean Corp Hgb Conc. 33.2 g/dL (33.0-37.0); Mean Corpuscular Hgb 28.8 pg (27.0-31.0); Mean Corpuscular Volume 86.7 fL (80.0-94.0)
[2024-05-21 14:32] LABS: Platelet Count 138 10^3/uL (130-400)
[2024-05-21 14:33] LABS: % Neutrophils 79.5 % (42.2-75.2)
== END ==
LOC: REG 11:43
PROVIDERS: ATTENDING PHYSICIAN Internal Medicine Hematology & Oncology
DX: D69.3 Immune thrombocytopenic purpura (principal); M06.9 Rheumatoid arthritis, unspecified; R10.84 Generalized abdominal pain; R14.0 Abdominal distension (gaseous); R18.8 Other ascites
CPT/HCPCS: 36415; 85025

== ENCOUNTER → 2024-05-29 10:56 | Outpatient (REF) | payer MEDICARE, OTHER, SELFPAY ==
[2024-05-29 11:52] LABS: % Basophils 0.7 % (0-2); % Eosinophils 0.2 % (0-6); % Immature Granulocytes 2.8 % (0-0.5); % Lymphocytes 4.2 % (20.5-51.1); % Monocytes 9.5 % (1.7-9.3); % Neutrophils 82.6 % (42.2-75.2); Absolute Basophils 0.1 10^3/uL (0-0.2); Absolute Immature Granulocytes 0.5 10^3/uL (0-0.05); Absolute Lymphocytes 0.7 10^3/uL (1.2-3.4); Absolute Monocytes 1.6 10^3/uL (0.1-0.6); Absolute Neutrophils 13.5 10^3/uL (1.4-6.5); Hematocrit 40.1 % (39.0-52.0); Hemoglobin 13.3 g/dL (13.0-18.0); Mean Corp Hgb Conc. 33.2 g/dL (33.0-37.0); Mean Corpuscular Volume 87.6 fL (80.0-94.0); Mean Platelet Volume 12.1 fL (7.4-10.4); Nucleated Red Blood Cells % 0 % (-); Platelet Count 599 10^3/uL (130-400); Red Blood Cell Count 4.58 10^6/uL (4.70-6.10); Red Cell Dist. Width 16.5 % (11.5-14.5); White Blood Cell Count 16.3 10^3/uL (4.8-10.8)
== END ==
LOC: REG 10:56
PROVIDERS: ATTENDING PHYSICIAN Internal Medicine Hematology & Oncology; FAMILY PHYSICIAN Nurse Practitioner Adult Health
DX: D69.3 Immune thrombocytopenic purpura (principal); M06.9 Rheumatoid arthritis, unspecified; R10.84 Generalized abdominal pain; R14.0 Abdominal distension (gaseous); R18.8 Other ascites
CPT/HCPCS: 36415; 85025

== ENCOUNTER → 2024-06-05 12:06 | Outpatient (REF) | payer MEDICARE, OTHER, SELFPAY ==
[2024-06-05 14:39] LABS: % Basophils 0.7 % (0-2); % Eosinophils 0.2 % (0-6); % Immature Granulocytes 3.5 % (0-0.5); % Monocytes 11.5 % (1.7-9.3); % Neutrophils 79.1 % (42.2-75.2); Absolute Basophils 0.1 10^3/uL (0-0.2); Absolute Immature Granulocytes 0.5 10^3/uL (0-0.05); Absolute Lymphocytes 0.8 10^3/uL (1.2-3.4); Absolute Monocytes 1.8 10^3/uL (0.1-0.6); Absolute Neutrophils 12.1 10^3/uL (1.4-6.5); Hematocrit 39.6 % (39.0-52.0); Hemoglobin 13.1 g/dL (13.0-18.0); Mean Corp Hgb Conc. 33.1 g/dL (33.0-37.0); Mean Corpuscular Hgb 28.9 pg (27.0-31.0); Mean Corpuscular Volume 87.2 fL (80.0-94.0); Nucleated Red Blood Cells % 0 % (-); Red Blood Cell Count 4.54 10^6/uL (4.70-6.10); Red Cell Dist. Width 16.2 % (11.5-14.5); White Blood Cell Count 15.3 10^3/uL (4.8-10.8)
== END ==
LOC: REG 12:06
PROVIDERS: ATTENDING PHYSICIAN Internal Medicine Hematology & Oncology; FAMILY PHYSICIAN Nurse Practitioner Adult Health
DX: D69.3 Immune thrombocytopenic purpura (principal); M06.9 Rheumatoid arthritis, unspecified; R10.84 Generalized abdominal pain; R14.0 Abdominal distension (gaseous); R18.8 Other ascites
CPT/HCPCS: 36415; 85025

== ENCOUNTER → 2024-06-08 11:18 | Outpatient (REF) | payer MEDICARE, OTHER, SELFPAY ==
[2024-06-08 12:36] LABS: Platelet Count 533 10^3/uL (130-400)
[2024-06-08 12:37] LABS: White Blood Cell Count 12.8 10^3/uL (4.8-10.8)
[2024-06-08 12:38] LABS: % Basophils 0.5 % (0-2); % Eosinophils 0.2 % (0-6); % Immature Granulocytes 1.9 % (0-0.5); % Lymphocytes 4.5 % (20.5-51.1); % Monocytes 11.5 % (1.7-9.3); % Neutrophils 81.4 % (42.2-75.2); Absolute Basophils 0.1 10^3/uL (0-0.2); Absolute Immature Granulocytes 0.2 10^3/uL (0-0.05); Absolute Lymphocytes 0.6 10^3/uL (1.2-3.4); Absolute Monocytes 1.5 10^3/uL (0.1-0.6); Absolute Neutrophils 10.4 10^3/uL (1.4-6.5); Hematocrit 41.4 % (39.0-52.0); Hemoglobin 13.5 g/dL (13.0-18.0); Mean Corp Hgb Conc. 32.6 g/dL (33.0-37.0); Mean Corpuscular Hgb 28.7 pg (27.0-31.0); Mean Corpuscular Volume 88.1 fL (80.0-94.0); Mean Platelet Volume 11.1 fL (7.4-10.4); Nucleated Red Blood Cells % 0 % (-)
== END ==
LOC: REG 11:18
PROVIDERS: ATTENDING PHYSICIAN Internal Medicine Hematology & Oncology; FAMILY PHYSICIAN Nurse Practitioner Adult Health
DX: D69.3 Immune thrombocytopenic purpura (principal); M06.9 Rheumatoid arthritis, unspecified; R10.84 Generalized abdominal pain; R14.0 Abdominal distension (gaseous); R18.8 Other ascites
CPT/HCPCS: 36415; 85025

== ENCOUNTER → 2024-06-15 12:02 | Outpatient (REF) | payer MEDICARE, OTHER, SELFPAY ==
[2024-06-15 12:56] LABS: % Basophils 0.5 % (0-2); % Eosinophils 0.1 % (0-6); % Monocytes 10.1 % (1.7-9.3); % Neutrophils 82.3 % (42.2-75.2); Absolute Basophils 0.1 10^3/uL (0-0.2); Absolute Immature Granulocytes 0.7 10^3/uL (0-0.05); Absolute Lymphocytes 0.5 10^3/uL (1.2-3.4); Absolute Monocytes 1.7 10^3/uL (0.1-0.6); Hematocrit 40.6 % (39.0-52.0); Hemoglobin 13.5 g/dL (13.0-18.0); Mean Corp Hgb Conc. 33.3 g/dL (33.0-37.0); Mean Corpuscular Volume 87.3 fL (80.0-94.0); Nucleated Red Blood Cells % 0 % (-); Red Blood Cell Count 4.65 10^6/uL (4.70-6.10); White Blood Cell Count 17.1 10^3/uL (4.8-10.8)
[2024-06-15 12:58] LABS: Platelet Count 4 10^3/uL (130-400)
== END ==
LOC: REG 12:02
PROVIDERS: ATTENDING PHYSICIAN Internal Medicine Hematology & Oncology; FAMILY PHYSICIAN Nurse Practitioner Adult Health
DX: D69.3 Immune thrombocytopenic purpura (principal); M06.9 Rheumatoid arthritis, unspecified; R10.84 Generalized abdominal pain; R14.0 Abdominal distension (gaseous); R18.8 Other ascites
CPT/HCPCS: 36415; 85025

== ENCOUNTER → 2024-06-22 10:59 | Outpatient (REF) | payer MEDICARE, OTHER, SELFPAY ==
[2024-06-22 12:44] LABS: % Basophils 1.2 % (0-2); % Immature Granulocytes 5.9 % (0-0.5); % Lymphocytes 3.1 % (20.5-51.1); % Monocytes 8.3 % (1.7-9.3); % Neutrophils 81.5 % (42.2-75.2); Absolute Basophils 0.3 10^3/uL (0-0.2); Absolute Immature Granulocytes 1.2 10^3/uL (0-0.05); Absolute Lymphocytes 0.6 10^3/uL (1.2-3.4); Absolute Monocytes 1.7 10^3/uL (0.1-0.6); Hematocrit 43.8 % (39.0-52.0); Hemoglobin 14.2 g/dL (13.0-18.0); Mean Corp Hgb Conc. 32.4 g/dL (33.0-37.0); Mean Corpuscular Hgb 28.6 pg (27.0-31.0); Mean Corpuscular Volume 88.1 fL (80.0-94.0); Nucleated Red Blood Cells % 0.1 % (-); Platelet Count 236 10^3/uL (130-400); Red Blood Cell Count 4.97 10^6/uL (4.70-6.10); Red Cell Dist. Width 15.9 % (11.5-14.5); White Blood Cell Count 20.9 10^3/uL (4.8-10.8)
== END ==
LOC: REG 10:59
PROVIDERS: ATTENDING PHYSICIAN Internal Medicine Hematology & Oncology; FAMILY PHYSICIAN Nurse Practitioner Adult Health
DX: D69.3 Immune thrombocytopenic purpura (principal); M06.9 Rheumatoid arthritis, unspecified; R14.0 Abdominal distension (gaseous); R10.84 Generalized abdominal pain; R18.8 Other ascites
CPT/HCPCS: 36415; 85025

== ENCOUNTER → 2024-06-29 10:14 | Outpatient (REF) | payer MEDICARE, OTHER, SELFPAY ==
[2024-06-29 11:31] LABS: Hematocrit 40.2 % (39.0-52.0); Hemoglobin 13.1 g/dL (13.0-18.0); Mean Corp Hgb Conc. 32.6 g/dL (33.0-37.0); Mean Corpuscular Hgb 28.7 pg (27.0-31.0); Mean Corpuscular Volume 88.2 fL (80.0-94.0); Red Blood Cell Count 4.56 10^6/uL (4.70-6.10); Red Cell Dist. Width 15.8 % (11.5-14.5); White Blood Cell Count 16.9 10^3/uL (4.8-10.8)
[2024-06-29 15:49] LABS: Platelet Count 565 10^3/uL (130-400)
[2024-06-29 15:55] LABS: Absolute Neutrophils -Man Diff 15.5 10^3/uL (1.4-6.5); Band Neutrophils 0 % (0-3); Lymphocytes 6 % (20-51); Monocytes 2 % (2-9); Normal RBC Morphology Yes; Platelets Checked Yes; Segmented Neutrophils 92 % (42-75); Total Cells Counted 100
== END ==
LOC: REG 10:14
PROVIDERS: ATTENDING PHYSICIAN Internal Medicine Hematology & Oncology; FAMILY PHYSICIAN Nurse Practitioner
DX: D69.3 Immune thrombocytopenic purpura (principal); M06.9 Rheumatoid arthritis, unspecified; R14.0 Abdominal distension (gaseous); R10.84 Generalized abdominal pain; R18.8 Other ascites
CPT/HCPCS: 36415; 85025

== ENCOUNTER → 2024-07-10 11:24 | Outpatient (REF) | payer MEDICARE, OTHER, SELFPAY ==
[2024-07-10 13:58] LABS: % Basophils 0.4 % (0-2); % Eosinophils 0.1 % (0-6); % Immature Granulocytes 2.4 % (0-0.5); % Lymphocytes 4.2 % (20.5-51.1); % Monocytes 10.1 % (1.7-9.3); % Neutrophils 82.8 % (42.2-75.2); Absolute Basophils 0.1 10^3/uL (0-0.2); Absolute Immature Granulocytes 0.4 10^3/uL (0-0.05); Absolute Lymphocytes 0.7 10^3/uL (1.2-3.4); Absolute Monocytes 1.6 10^3/uL (0.1-0.6); Hematocrit 40.7 % (39.0-52.0); Hemoglobin 13.6 g/dL (13.0-18.0); Mean Corp Hgb Conc. 33.4 g/dL (33.0-37.0); Mean Corpuscular Hgb 29.4 pg (27.0-31.0); Mean Corpuscular Volume 88.1 fL (80.0-94.0); Nucleated Red Blood Cells % 0.1 % (-); Red Blood Cell Count 4.62 10^6/uL (4.70-6.10); Red Cell Dist. Width 16.1 % (11.5-14.5); White Blood Cell Count 15.7 10^3/uL (4.8-10.8)
[2024-07-10 14:01] LABS: Platelet Count 85 10^3/uL (130-400)
== END ==
LOC: REG 11:24
PROVIDERS: ATTENDING PHYSICIAN Internal Medicine Hematology & Oncology; FAMILY PHYSICIAN Nurse Practitioner
DX: D69.3 Immune thrombocytopenic purpura (principal); M06.9 Rheumatoid arthritis, unspecified; R10.84 Generalized abdominal pain; R18.8 Other ascites
CPT/HCPCS: 36415; 85025

== ENCOUNTER → 2024-07-17 07:44 | Outpatient (REF) | payer MEDICARE, OTHER, SELFPAY ==
[2024-07-17 09:21] LABS: Iron 132 ug/dl (49-181)
[2024-07-17 09:23] LABS: ALT (SGPT) 25 U/L (0-50); AST (SGOT) 31 U/L (17-59); Albumin 3.8 g/dl (3.5-5.0); Alkaline Phosphatase 101 U/L (38-126); Blood Urea Nitrogen 34 mg/dl (9-20); Carbon Dioxide 27 mmol/L (22-30); Chloride 104 mmol/L (98-107); Glucose 97 mg/dl (70-99); HDL Cholesterol 30 mg/dl; LDL Cholesterol, Calculated 95 mg/dl; Potassium 4.2 mmol/L (3.5-5.1); Sodium 140 mmol/L (135-145); Total Bilirubin 0.7 mg/dl (0.2-1.3); Total Cholesterol 167 mg/dl (50-199); Total Protein 6.4 g/dl (6.3-8.2); Triglyceride 210 mg/dl (10-149); Very Low Density Lipoprotein 42 mg/dl (0-30); eGFR > 60.00
[2024-07-17 09:33] LABS: Total Iron Binding Capacity 338 ug/dl (261-462)
[2024-07-17 09:52] LABS: PSA, Total - Screen 0.55 ng/ml (0.0-4.0); TSH Reflex To Free T4 1.25 uIU/ml (0.47-4.68)
[2024-07-17 09:54] LABS: Hepatitis B Surface Antigen Negative (Negative)
[2024-07-17 09:58] LABS: % Basophils 0.3 % (0-2); % Eosinophils 0.1 % (0-6); % Immature Granulocytes 1.9 % (0-0.5); % Lymphocytes 3.9 % (20.5-51.1); % Monocytes 9.1 % (1.7-9.3); % Neutrophils 84.7 % (42.2-75.2); Absolute Basophils 0.1 10^3/uL (0-0.2); Absolute Immature Granulocytes 0.3 10^3/uL (0-0.05); Absolute Lymphocytes 0.6 10^3/uL (1.2-3.4); Absolute Monocytes 1.4 10^3/uL (0.1-0.6); Absolute Neutrophils 13.3 10^3/uL (1.4-6.5); Hematocrit 44.1 % (39.0-52.0); Hemoglobin 14.1 g/dL (13.0-18.0); Mean Corpuscular Hgb 29.1 pg (27.0-31.0); Mean Corpuscular Volume 90.9 fL (80.0-94.0); Nucleated Red Blood Cells % 0 % (-); Red Blood Cell Count 4.85 10^6/uL (4.70-6.10); Red Cell Dist. Width 15.9 % (11.5-14.5); White Blood Cell Count 15.7 10^3/uL (4.8-10.8)
[2024-07-17 09:59] LABS: Platelet Count 17 10^3/uL (130-400)
[2024-07-17 10:11] LABS: Hepatitis A Antibody, Total Negative (Negative); Hepatitis B Core Ab, Total Negative (Negative); Hepatitis B Surface Antibody Negative; Hepatitis C Antibody Negative (Negative)
[2024-07-18 21:23] LABS: Alpha-1-Antitrypsin 187 mg/dL (90-200)
[2024-07-18 21:24] LABS: Ceruloplasmin 28 mg/dL (15-30)
[2024-07-19 01:41] LABS: tTG IgA Antibody <1.02 FLU (0.00-4.99)
[2024-07-19 02:19] LABS: F-Actin Antibody IgG 7 Units (0-19); Mitochondrial M2 Ab, IgG 7.4 Units (0.0-24.9)
[2024-07-19 04:52] LABS: ANA, IgG Reflex to HEp-2 Detected (None Detected)
[2024-07-20 00:41] LABS: IgA 180 mg/dl (70-400)
== END ==
LOC: REG 07:44
PROVIDERS: ATTENDING PHYSICIAN Internal Medicine Hematology & Oncology; FAMILY PHYSICIAN Nurse Practitioner Adult Health; OTHER PHYSICIAN Specialist; REFERRING PHYSICIAN Physician Assistant
DX: E03.9 Hypothyroidism, unspecified (principal); E78.2 Mixed hyperlipidemia; Z79.52 Long term (current) use of systemic steroids; R14.0 Abdominal distension (gaseous); D69.3 Immune thrombocytopenic purpura; Z12.5 Encounter for screening for malignant neoplasm of prostate; K76.0 Fatty (change of) liver, not elsewhere classified; Z01.818 Encounter for other preprocedural examination
CPT/HCPCS: 36415; 80053; 80061; 82103; 82390; 82728; 82784; 83540; 83550; 84443; 85025; 86015; 86038; 86364; 86381; 86704; 86706; 86708; 86803; 87340; G0103

== ENCOUNTER → 2024-07-24 10:17 | Outpatient (REF) | payer MEDICARE, OTHER, SELFPAY ==
[2024-07-24 11:53] LABS: Hematocrit 41.9 % (39.0-52.0); Hemoglobin 13.4 g/dL (13.0-18.0); Mean Corpuscular Hgb 29.3 pg (27.0-31.0); Mean Corpuscular Volume 91.7 fL (80.0-94.0); Red Blood Cell Count 4.57 10^6/uL (4.70-6.10); Red Cell Dist. Width 16.1 % (11.5-14.5); White Blood Cell Count 17.6 10^3/uL (4.8-10.8)
[2024-07-24 13:19] LABS: Platelet Count 203 10^3/uL (130-400)
== END ==
LOC: REG 10:17
PROVIDERS: ATTENDING PHYSICIAN Internal Medicine Hematology & Oncology; FAMILY PHYSICIAN Nurse Practitioner Adult Health
DX: D69.3 Immune thrombocytopenic purpura (principal); M06.9 Rheumatoid arthritis, unspecified; R14.0 Abdominal distension (gaseous); R10.84 Generalized abdominal pain; R18.8 Other ascites
CPT/HCPCS: 36415; 85025

== ENCOUNTER → 2024-07-31 11:13 | Outpatient (REF) | payer MEDICARE, OTHER, SELFPAY ==
[2024-07-31 12:07] LABS: % Basophils 0.5 % (0-2); % Eosinophils 0.1 % (0-6); % Immature Granulocytes 3.7 % (0-0.5); % Lymphocytes 2.9 % (20.5-51.1); % Monocytes 9.8 % (1.7-9.3); Absolute Basophils 0.1 10^3/uL (0-0.2); Absolute Immature Granulocytes 0.8 10^3/uL (0-0.05); Absolute Lymphocytes 0.7 10^3/uL (1.2-3.4); Absolute Monocytes 2.2 10^3/uL (0.1-0.6); Absolute Neutrophils 18.4 10^3/uL (1.4-6.5); Hematocrit 42.8 % (39.0-52.0); Hemoglobin 13.8 g/dL (13.0-18.0); Mean Corp Hgb Conc. 32.2 g/dL (33.0-37.0); Mean Corpuscular Hgb 29.4 pg (27.0-31.0); Mean Corpuscular Volume 91.1 fL (80.0-94.0); Nucleated Red Blood Cells % 0.1 % (-); Red Cell Dist. Width 16.2 % (11.5-14.5); White Blood Cell Count 22.2 10^3/uL (4.8-10.8)
[2024-07-31 13:10] LABS: Platelet Count 98 10^3/uL (130-400)
== END ==
LOC: REG 11:13
PROVIDERS: ATTENDING PHYSICIAN Internal Medicine Hematology & Oncology; FAMILY PHYSICIAN Nurse Practitioner Adult Health
DX: D69.3 Immune thrombocytopenic purpura (principal); M06.9 Rheumatoid arthritis, unspecified; R14.0 Abdominal distension (gaseous); R10.84 Generalized abdominal pain; R18.8 Other ascites
CPT/HCPCS: 36415; 85025

== ENCOUNTER → 2024-08-07 11:25 | Outpatient (REF) | payer MEDICARE, OTHER, SELFPAY ==
[2024-08-07 12:29] LABS: % Basophils 0.8 % (0-2); % Immature Granulocytes 6.5 % (0-0.5); % Lymphocytes 3.7 % (20.5-51.1); % Monocytes 8.2 % (1.7-9.3); % Neutrophils 80.8 % (42.2-75.2); Absolute Basophils 0.2 10^3/uL (0-0.2); Absolute Immature Granulocytes 1.2 10^3/uL (0-0.05); Absolute Lymphocytes 0.7 10^3/uL (1.2-3.4); Absolute Monocytes 1.6 10^3/uL (0.1-0.6); Absolute Neutrophils 15.4 10^3/uL (1.4-6.5); Hemoglobin 13.4 g/dL (13.0-18.0); Mean Corp Hgb Conc. 32.7 g/dL (33.0-37.0); Mean Corpuscular Hgb 29.3 pg (27.0-31.0); Mean Corpuscular Volume 89.5 fL (80.0-94.0); Nucleated Red Blood Cells % 0.1 % (-); Red Blood Cell Count 4.58 10^6/uL (4.70-6.10); White Blood Cell Count 19.1 10^3/uL (4.8-10.8)
[2024-08-07 12:31] LABS: Platelet Count 661 10^3/uL (130-400)
== END ==
LOC: REG 11:25
PROVIDERS: ATTENDING PHYSICIAN Internal Medicine Hematology & Oncology; FAMILY PHYSICIAN Nurse Practitioner
DX: D69.3 Immune thrombocytopenic purpura (principal); M06.9 Rheumatoid arthritis, unspecified; R14.0 Abdominal distension (gaseous); R10.84 Generalized abdominal pain; R18.8 Other ascites
CPT/HCPCS: 36415; 85025

== ENCOUNTER → 2024-08-14 11:43 | Outpatient (REF) | payer MEDICARE, OTHER, SELFPAY ==
[2024-08-14 12:22] LABS: % Basophils 0.5 % (0-2); % Eosinophils 0.1 % (0-6); % Immature Granulocytes 3.1 % (0-0.5); % Monocytes 11.2 % (1.7-9.3); % Neutrophils 80.1 % (42.2-75.2); Absolute Basophils 0.1 10^3/uL (0-0.2); Absolute Immature Granulocytes 0.4 10^3/uL (0-0.05); Absolute Lymphocytes 0.7 10^3/uL (1.2-3.4); Absolute Monocytes 1.5 10^3/uL (0.1-0.6); Absolute Neutrophils 10.7 10^3/uL (1.4-6.5); Hematocrit 39.9 % (39.0-52.0); Hemoglobin 12.9 g/dL (13.0-18.0); Mean Corp Hgb Conc. 32.3 g/dL (33.0-37.0); Mean Corpuscular Hgb 29.5 pg (27.0-31.0); Mean Corpuscular Volume 91.1 fL (80.0-94.0); Mean Platelet Volume 10.7 fL (7.4-10.4); Nucleated Red Blood Cells % 0 % (-); Platelet Count 401 10^3/uL (130-400); Red Blood Cell Count 4.38 10^6/uL (4.70-6.10); Red Cell Dist. Width 15.8 % (11.5-14.5); White Blood Cell Count 13.4 10^3/uL (4.8-10.8)
== END ==
LOC: REG 11:43
PROVIDERS: ATTENDING PHYSICIAN Internal Medicine Hematology & Oncology; FAMILY PHYSICIAN Nurse Practitioner; OTHER PHYSICIAN Orthopaedic Surgery
DX: D69.3 Immune thrombocytopenic purpura (principal); M06.9 Rheumatoid arthritis, unspecified; R14.0 Abdominal distension (gaseous); R10.84 Generalized abdominal pain; R18.8 Other ascites
CPT/HCPCS: 36415; 85025

== ENCOUNTER → 2024-08-17 12:56 | Outpatient (REF) | payer MEDICARE, OTHER, SELFPAY | LOC: RAD 12:56 | PROVIDERS: ATTENDING PHYSICIAN Internal Medicine Gastroenterology; FAMILY PHYSICIAN Nurse Practitioner | DX: R14.0 Abdominal distension (gaseous) (principal) | CPT/HCPCS: 76700 ==

== ENCOUNTER → 2024-08-18 16:09 | Outpatient (REF) | payer MEDICARE, OTHER, SELFPAY ==
[2024-08-18 17:07] LABS: % Basophils 0.7 % (0-2); % Eosinophils 0.3 % (0-6); % Immature Granulocytes 5.8 % (0-0.5); % Lymphocytes 6.4 % (20.5-51.1); % Monocytes 12.1 % (1.7-9.3); % Neutrophils 74.7 % (42.2-75.2); Absolute Basophils 0.1 10^3/uL (0-0.2); Absolute Immature Granulocytes 0.9 10^3/uL (0-0.05); Absolute Monocytes 1.9 10^3/uL (0.1-0.6); Absolute Neutrophils 11.9 10^3/uL (1.4-6.5); Hematocrit 40.9 % (39.0-52.0); Hemoglobin 13.4 g/dL (13.0-18.0); Mean Corp Hgb Conc. 32.8 g/dL (33.0-37.0); Mean Corpuscular Hgb 29.4 pg (27.0-31.0); Mean Corpuscular Volume 89.7 fL (80.0-94.0); Nucleated Red Blood Cells % 0.1 % (-); Platelet Count 253 10^3/uL (130-400); Red Blood Cell Count 4.56 10^6/uL (4.70-6.10); Red Cell Dist. Width 15.8 % (11.5-14.5)
== END ==
LOC: REG 16:09
PROVIDERS: ATTENDING PHYSICIAN Internal Medicine Hematology & Oncology; FAMILY PHYSICIAN Nurse Practitioner; REFERRING PHYSICIAN Internal Medicine Gastroenterology
DX: D69.3 Immune thrombocytopenic purpura (principal); M06.9 Rheumatoid arthritis, unspecified; R14.0 Abdominal distension (gaseous); R10.84 Generalized abdominal pain; R18.8 Other ascites
CPT/HCPCS: 36415; 85025

== ENCOUNTER 2024-08-20 06:20 | Day surgery (SDC) | payer MEDICARE, OTHER, SELFPAY | END 2024-08-20 11:20 | disposition home or self-care (01) | LOC: GI 06:20 | PROVIDERS: ATTENDING PHYSICIAN Internal Medicine Gastroenterology | DX: R10.9 Unspecified abdominal pain (principal); R93.3 Abnormal findings on diagnostic imaging of other parts of digestive tract; K64.8 Other hemorrhoids; K57.30 Diverticulosis of large intestine without perforation or abscess without bleeding; K29.50 Unspecified chronic gastritis without bleeding | CPT/HCPCS: 45380; 43239; 88305; 88342 ==

== ENCOUNTER → 2024-08-21 11:02 | Outpatient (REF) | payer MEDICARE, OTHER, SELFPAY ==
[2024-08-21 12:11] LABS: % Basophils 0.4 % (0-2); % Eosinophils 0.1 % (0-6); % Immature Granulocytes 4.6 % (0-0.5); % Monocytes 7.5 % (1.7-9.3); % Neutrophils 82.4 % (42.2-75.2); Absolute Basophils 0.1 10^3/uL (0-0.2); Absolute Immature Granulocytes 0.8 10^3/uL (0-0.05); Absolute Lymphocytes 0.8 10^3/uL (1.2-3.4); Absolute Monocytes 1.2 10^3/uL (0.1-0.6); Absolute Neutrophils 13.6 10^3/uL (1.4-6.5); Hematocrit 40.3 % (39.0-52.0); Mean Corp Hgb Conc. 32.3 g/dL (33.0-37.0); Mean Corpuscular Hgb 29.1 pg (27.0-31.0); Mean Corpuscular Volume 90.4 fL (80.0-94.0); Nucleated Red Blood Cells % 0.2 % (-); Red Blood Cell Count 4.46 10^6/uL (4.70-6.10); Red Cell Dist. Width 15.5 % (11.5-14.5); White Blood Cell Count 16.5 10^3/uL (4.8-10.8)
[2024-08-21 12:31] LABS: Mean Platelet Volume 13.5 fL (7.4-10.4); Platelet Count 148 10^3/uL (130-400)
== END ==
LOC: REG 11:02
PROVIDERS: ATTENDING PHYSICIAN Internal Medicine Hematology & Oncology; FAMILY PHYSICIAN Nurse Practitioner
DX: D69.3 Immune thrombocytopenic purpura (principal); M06.9 Rheumatoid arthritis, unspecified; R14.0 Abdominal distension (gaseous); R10.84 Generalized abdominal pain; R18.8 Other ascites
CPT/HCPCS: 36415; 85025

== ENCOUNTER → 2024-08-28 10:43 | Outpatient (REF) | payer MEDICARE, OTHER, SELFPAY ==
[2024-08-28 12:50] LABS: % Basophils 0.9 % (0-2); % Eosinophils 0.1 % (0-6); % Immature Granulocytes 4.8 % (0-0.5); % Monocytes 8.7 % (1.7-9.3); % Neutrophils 80.5 % (42.2-75.2); Absolute Basophils 0.1 10^3/uL (0-0.2); Absolute Immature Granulocytes 0.8 10^3/uL (0-0.05); Absolute Lymphocytes 0.8 10^3/uL (1.2-3.4); Absolute Monocytes 1.4 10^3/uL (0.1-0.6); Hematocrit 40.8 % (39.0-52.0); Hemoglobin 13.3 g/dL (13.0-18.0); Mean Corp Hgb Conc. 32.6 g/dL (33.0-37.0); Mean Corpuscular Hgb 29.3 pg (27.0-31.0); Mean Corpuscular Volume 89.9 fL (80.0-94.0); Mean Platelet Volume 12.2 fL (7.4-10.4); Nucleated Red Blood Cells % 0 % (-); Red Blood Cell Count 4.54 10^6/uL (4.70-6.10); Red Cell Dist. Width 15.7 % (11.5-14.5); White Blood Cell Count 16.2 10^3/uL (4.8-10.8)
[2024-08-28 12:53] LABS: Platelet Count 466 10^3/uL (130-400)
== END ==
LOC: REG 10:43
PROVIDERS: ATTENDING PHYSICIAN Internal Medicine Hematology & Oncology; FAMILY PHYSICIAN Nurse Practitioner
DX: D69.3 Immune thrombocytopenic purpura (principal); M06.9 Rheumatoid arthritis, unspecified; R14.0 Abdominal distension (gaseous); R10.84 Generalized abdominal pain; R18.8 Other ascites
CPT/HCPCS: 36415; 85025

== ENCOUNTER → 2024-09-04 11:42 | Outpatient (REF) | payer MEDICARE, OTHER, SELFPAY ==
[2024-09-04 12:35] LABS: % Basophils 0.7 % (0-2); % Eosinophils 0.2 % (0-6); % Lymphocytes 5.9 % (20.5-51.1); % Monocytes 12.4 % (1.7-9.3); % Neutrophils 78.8 % (42.2-75.2); Absolute Basophils 0.1 10^3/uL (0-0.2); Absolute Immature Granulocytes 0.2 10^3/uL (0-0.05); Absolute Lymphocytes 0.6 10^3/uL (1.2-3.4); Absolute Monocytes 1.3 10^3/uL (0.1-0.6); Absolute Neutrophils 8.5 10^3/uL (1.4-6.5); Hematocrit 47.3 % (39.0-52.0); Hemoglobin 15.7 g/dL (13.0-18.0); Mean Corp Hgb Conc. 33.2 g/dL (33.0-37.0); Mean Corpuscular Hgb 29.5 pg (27.0-31.0); Mean Corpuscular Volume 88.9 fL (80.0-94.0); Nucleated Red Blood Cells % 0 % (-); Red Blood Cell Count 5.32 10^6/uL (4.70-6.10); Red Cell Dist. Width 15.2 % (11.5-14.5); White Blood Cell Count 10.8 10^3/uL (4.8-10.8)
[2024-09-04 12:47] LABS: Mean Platelet Volume 12.3 fL (7.4-10.4); Platelet Count 66 10^3/uL (130-400)
== END ==
LOC: REG 11:42
PROVIDERS: ATTENDING PHYSICIAN Internal Medicine Hematology & Oncology
DX: D69.3 Immune thrombocytopenic purpura (principal); M06.9 Rheumatoid arthritis, unspecified; R14.0 Abdominal distension (gaseous); R10.84 Generalized abdominal pain; R18.8 Other ascites
CPT/HCPCS: 36415; 85025

== ENCOUNTER → 2024-09-14 11:37 | Outpatient (REF) | payer MEDICARE, OTHER, SELFPAY ==
[2024-09-14 12:26] LABS: % Basophils 0.5 % (0-2); % Eosinophils 0.2 % (0-6); % Immature Granulocytes 2.3 % (0-0.5); % Lymphocytes 4.2 % (20.5-51.1); % Monocytes 12.7 % (1.7-9.3); % Neutrophils 80.1 % (42.2-75.2); Absolute Basophils 0.1 10^3/uL (0-0.2); Absolute Immature Granulocytes 0.4 10^3/uL (0-0.05); Absolute Lymphocytes 0.7 10^3/uL (1.2-3.4); Absolute Monocytes 2.1 10^3/uL (0.1-0.6); Absolute Neutrophils 13.1 10^3/uL (1.4-6.5); Hemoglobin 13.8 g/dL (13.0-18.0); Mean Corp Hgb Conc. 32.9 g/dL (33.0-37.0); Mean Corpuscular Hgb 29.7 pg (27.0-31.0); Mean Corpuscular Volume 90.3 fL (80.0-94.0); Nucleated Red Blood Cells % 0 % (-); Red Blood Cell Count 4.65 10^6/uL (4.70-6.10); Red Cell Dist. Width 15.3 % (11.5-14.5); White Blood Cell Count 16.3 10^3/uL (4.8-10.8)
[2024-09-14 13:01] LABS: Mean Platelet Volume 12.8 fL (7.4-10.4); Platelet Count 136 10^3/uL (130-400)
== END ==
LOC: REG 11:37
PROVIDERS: ATTENDING PHYSICIAN Internal Medicine Hematology & Oncology; FAMILY PHYSICIAN Nurse Practitioner
DX: D69.3 Immune thrombocytopenic purpura (principal); M06.9 Rheumatoid arthritis, unspecified; R14.0 Abdominal distension (gaseous); R10.84 Generalized abdominal pain; R18.8 Other ascites
CPT/HCPCS: 36415; 85025

== ENCOUNTER → 2024-09-22 10:53 | Outpatient (REF) | payer MEDICARE, OTHER, SELFPAY ==
[2024-09-22 12:25] LABS: % Basophils 0.7 % (0-2); % Eosinophils 0.2 % (0-6); % Immature Granulocytes 2.5 % (0-0.5); % Lymphocytes 5.3 % (20.5-51.1); % Monocytes 9.7 % (1.7-9.3); % Neutrophils 81.6 % (42.2-75.2); Absolute Basophils 0.1 10^3/uL (0-0.2); Absolute Immature Granulocytes 0.4 10^3/uL (0-0.05); Absolute Lymphocytes 0.8 10^3/uL (1.2-3.4); Absolute Monocytes 1.4 10^3/uL (0.1-0.6); Absolute Neutrophils 11.9 10^3/uL (1.4-6.5); Hematocrit 41.6 % (39.0-52.0); Hemoglobin 13.8 g/dL (13.0-18.0); Mean Corp Hgb Conc. 33.2 g/dL (33.0-37.0); Mean Corpuscular Hgb 29.4 pg (27.0-31.0); Mean Corpuscular Volume 88.7 fL (80.0-94.0); Nucleated Red Blood Cells % 0.1 % (-); Red Blood Cell Count 4.69 10^6/uL (4.70-6.10); Red Cell Dist. Width 15.1 % (11.5-14.5); White Blood Cell Count 14.6 10^3/uL (4.8-10.8)
[2024-09-22 12:27] LABS: Platelet Count 32 10^3/uL (130-400)
== END ==
LOC: REG 10:53
PROVIDERS: ATTENDING PHYSICIAN Internal Medicine Hematology & Oncology
DX: D69.3 Immune thrombocytopenic purpura (principal); M06.9 Rheumatoid arthritis, unspecified; R14.0 Abdominal distension (gaseous); R10.84 Generalized abdominal pain; R18.8 Other ascites
CPT/HCPCS: 36415; 85025

== ENCOUNTER 2024-09-28 09:16 | Day surgery (SDC) | payer MEDICARE, OTHER, SELFPAY ==
[2024-09-25 08:35] VITALS: BMI 24.8
[2024-09-28] VITALS (18 sets, daily range): BP systolic 116–161; BP diastolic 68–99; BMI 24.3
[2024-09-28 10:08] LABS: Mean Corp Hgb Conc. 32.6 g/dL (33.0-37.0); Mean Corpuscular Hgb 29.1 pg (27.0-31.0); Mean Corpuscular Volume 89.4 fL (80.0-94.0); Mean Platelet Volume 12.4 fL (7.4-10.4); Platelet Count 434 10^3/uL (130-400); Red Blood Cell Count 4.81 10^6/uL (4.70-6.10); White Blood Cell Count 18.4 10^3/uL (4.8-10.8)
[2024-09-28 10:20] LABS: Blood Urea Nitrogen 28 mg/dl (9-20); Carbon Dioxide 25 mmol/L (22-30); Chloride 108 mmol/L (98-107); Estimated Creatinine Clearance 80 ml/min; Glucose 94 mg/dl (70-99); Potassium 4.4 mmol/L (3.5-5.1); Sodium 143 mmol/L (135-145); eGFR > 60.00
--- NOTE | 2024-09-28 13:13 | W.SUR.PREOP ---
Pre-Operative Surgical Note
-
I have examined this patient prior to the performance of the scheduled procedure.
The patient's condition is unchanged from the time of the current History and
Physical and the patient is able to undergo the scheduled procedure.
[2024-09-28 16:08] LABS: ACT-LR - POC 226 Seconds (116-155)
[2024-09-28] MEDS: DILAUDID 0.5 MG IV (17:02)
--- NOTE | 2024-09-28 17:24 | OR.RPT ---
Operative Report
Operative Report
Date of Operation: 09/28/2024
Pre Op Diagnosis:
1. [place] artery atherosclerosis with right toe ulcerations
2. [place] artery atherosclerosis with ischemic rest pain right foot
3. Chronic limb threatening ischemia
4. Rheumatoid arthritis
5. Chronic thrombocytopenia
Post Op Diagnosis:
1. [place] artery atherosclerosis with right toe ulcerations
2. [place] artery atherosclerosis with ischemic rest pain right foot
3. Chronic limb threatening ischemia
4. Rheumatoid arthritis
5. Chronic thrombocytopenia
Procedure:
1.) Intravascular lithotripsy to right anterior tibial artery (shockwave Javelin catheter to cross proximal occlusion followed by 3 mm x 80 mm E8)
2.) Intravascular lithotripsy to right superficial femoral artery and popliteal artery (7 mm x 60 mm M5+)
3.) Bioabsorbable drug-eluting scaffold stent to right proximal anterior tibial artery (2.5 mm x 28 mm Perez Esprit, postdilated to 3 mm)
4.) Diagnostic aortobiiliac arteriogram
5.) Diagnostic right lower extremity arteriogram
6.) Ultrasound-Guided percutaneous access to the left common femoral artery
7.) Ultrasound-Guided percutaneous retrograde pedal access, right dorsalis pedis
Surgeon: Merlin Roy III, MD
[employer] Printing Press Operator: Alejandro Nielsen MD PGY1
Anesthesia: Sedation with local
Fluoroscopy:
73.6 min
301 mGy
47.62 gy.cm2
Complications: None
Estimated Blood Loss: 20 cc
History and Indications for Procedure: 69-year-old male with medical comorbidities including rheumatoid arthritis and chronic thrombocytopenia. Developed ischemic rest pain in the right foot along with toe ulcerations with abnormal preoperative
arterial studies. He was taken to the operating room for attempted revascularization.
Procedure in Detail: Venu Florez was correctly identified and placed supine on the operating table. After adequate induction of anesthesia the bilateral groins were prepped and draped in the usual sterile fashion. A timeout was performed with the
nursing and anesthesia staff confirming the patient's identity as well as the nature and laterality of the procedure.
The left common femoral artery was identified under ultrasound guidance. The artery was patent but heavily calcified. The superior and inferior aspects of the femoral head were identified with radiographic guidance and marked at the skin level. The
proposed puncture site was infiltrated with local anesthesia. Under ultrasound guidance we accessed the left common femoral artery with a micropuncture needle and upsized to a 5 Fr sheath over a TransferGo wire. The wire and a Shepherds hook flush
catheter were advanced into the distal abdominal aorta and a diagnostic aorto-biiliac arteriogram was performed:
AORTO-ILIAC ARTERIOGRAM:
Aorta: Patent with no significant stenosis identified
Right common iliac artery: Patent with no significant stenosis identified
Right external iliac artery: Patent with no significant stenosis identified
Left common iliac artery: Patent with no significant stenosis identified
Left external iliac artery: Patent with no significant stenosis identified
Under roadmap guidance using a Glidewire and the Shepherds hook catheter we selected the right common iliac artery and then the external iliac artery. A catheter was tracked up and over the aortic bifurcation and placed in the distal external iliac
artery. A diagnostic right lower extremity arteriogram was then performed which demonstrated the following:
RIGHT LOWER EXTREMITY:
Common femoral artery: Diffusely calcified. Patent with no significant stenosis identified
Profunda femoral artery: Diffusely and heavily calcified. Patent
Superficial femoral artery: Diffusely and heavily calcified throughout. Scattered areas of focal moderate to high-grade stenosis throughout
Popliteal artery: Densely calcified throughout. Segment of high-grade calcified stenosis below the knee
Anterior tibial artery:. Bulky calcified plaque at the origin and proximal segment contributing to high-grade stenosis/focal occlusion. Remainder of the artery patent with scattered areas of stenosis throughout. Diffusely calcified throughout.
Dorsalis pedis artery patent but heavily calcified
Tibioperoneal trunk: Calcified. Patent.
Peroneal artery: Proximally patent but occluded thereafter
Posterior tibial artery: Occluded. Densely calcified.
ENDOVASCULAR INTERVENTION: Systemic heparin was administered. Exchanged out for a 6 Fr 45 cm sheath over a [employer] wire. Selected the superficial femoral and then the popliteal artery under roadmap guidance with Quickcross catheter and glidewire. Was
able to select the anterior tibial artery under roadmap guidance with a 0.014 wire and 0.014 quick cross catheter. Attempted to cross the proximal calcified stenosis but was unsuccessful with crossing catheter advancement. Attempted to pass the
shockwave Javelin catheter from an open over approach but could not advance the catheter into position through the more proximal calcified popliteal disease. At this point I made the decision to attempt retrograde pedal access to cross and treat
the disease in the anterior tibial. The right foot was prepped and draped. Under ultrasound guidance I accessed the dorsalis pedis artery on the right foot with a micropuncture needle. I then upsized to a 5 [place] sheath over the 0.014 wire.
Radial cocktail was administered immediately. Using the 0.014 wire and Quickcross I was able to cross the proximal calcified anterior tibial artery disease and gain wire access into the popliteal. This wire was then snared using a 7 mm gooseneck
from the up and over access. The wire was then pulled through thereby establishing cross body femoro-pedal wire access.
Due to the heavily calcified nature of the anterior tibial artery disease and in an effort to successfully cross the lesion, modify the calcium and achieve luminal gain with endovascular intervention I elected to proceed with intravascular
lithotripsy with a Shockwave Javelin catheter. The Javelin catheter was brought into position under radiographic guidance over the 0.014 wire from the 5 [place]ian pedal access sheath. The Javelin catheter was advanced through the proximal anterior
tibial artery and across the disease while simultaneously delivering lithotripsy pulses. All 120 pulses were delivered. Subsequent arteriogram demonstrated patent anterior tibial artery lumen with residual calcified stenosis remaining. Due to the
heavy bulky calcified nature of the residual proximal anterior tibial artery disease and in an effort to modify the calcium to achieve maximum luminal gain with endovascular intervention I elected to proceed with intravascular lithotripsy. A 3 mm x
80 mm Shockwave balloon was placed across the proximal anterior tibial stenosis under roadmap guidance. Alternating rounds of lithotripsy pulse delivery at sub-nominal pressure and angioplasty at nominal pressure was performed across the stenosis.
In between rounds of pulse delivery and angioplasty the balloon was deflated and repositioned under roadmap guidance. The entire anterior tibial artery was treated with the 3 mm E8 balloon from its origin to the pedal access sheath. All 400 pulses
were delivered. Following this the arteriogram demonstrated improved luminal gain but residual stenosis at the origin remained. I then brought into position a 2.5 mm x 28 mm Perez Esprit drug-eluting bioabsorbable scaffold. This was deployed in
the desired location under roadmap and magnification view. The scaffold was then postdilated with a 3 mm x 40 mm angioplasty balloon, holding nominal pressure for 3 minutes. Subsequent arteriogram demonstrated a nice technical result with a patent
anterior tibial artery. The proximal bioabsorbable scaffold was patent.
We then focused our attention on treating the calcified SFA/popliteal artery disease. Due to the heavily calcified nature of the superficial femoral artery and popliteal artery artery disease and in an effort to modify the calcium to achieve
maximum luminal gain with endovascular intervention I elected to proceed with intravascular lithotripsy. A 7 mm x 60 mm M5+ Shockwave balloon was placed across the stenosis under roadmap guidance. Alternating rounds of lithotripsy pulse delivery at
sub-nominal pressure and angioplasty at nominal pressure was performed across the stenosis. In between rounds of pulse delivery and angioplasty the balloon was deflated and repositioned under roadmap guidance. All 300 pulses were delivered.
COMPLETION ARTERIOGRAM: Patent superficial femoral artery and popliteal artery with heavy diffuse calcification again identified. Mild residual stenosis remained throughout the SFA/pop segment. Significant bulky calcified plaque again identified
in the below-knee popliteal artery which was patent. Patent anterior tibial artery and scaffold stent proximally significant improvement compared to pre-treatment.
Satisfied with this result we concluded the procedure. The up and over 6 [place] sheath tip was pulled back into the left external iliac artery. Protamine was administered. The 5 [place]ian pedal access sheath was pulled and direct manual pressure was
held over the puncture site until hemostasis was achieved. A robust dorsalis pedis artery Doppler signal was confirmed at the conclusion of the case. The 6 [place] sheath in the left femoral access was secured in place with the plan to pull it in
the recovery room.
The patient tolerated the procedure well and was taken to the recovery area in stable condition.
Attestation: I was present and responsible for the entire procedure.
Signed:
Merlin Roy III, MD
Vascular Surgery
[facility]
[2024-09-28] MEDS: DILAUDID 0.25 MG IV (17:48)
[2024-09-28] MEDS: NSS 1000 IV (18:35)
[2024-09-28] MEDS: PLAVIX 150 MG PO (19:19)
[2024-09-28] MEDS: DELTASONE 10 MG PO (23:36)
[2024-09-29 00:30] VITALS: BP 128/71
[2024-09-29] MEDS: ROXICODONE 5 MG PO (02:45)
[2024-09-29 03:02] VITALS: BP 138/75
[2024-09-29 05:43] VITALS: BMI 23.7
[2024-09-29] MEDS: SYNTHROID 50 MCG PO (06:00)
[2024-09-29 06:20] VITALS: BP 143/73
[2024-09-29 07:57] VITALS: BP 126/68
[2024-09-29 08:29] LABS: Hematocrit 42.3 % (39.0-52.0); Hemoglobin 13.5 g/dL (13.0-18.0); Mean Corp Hgb Conc. 31.9 g/dL (33.0-37.0); Mean Corpuscular Hgb 28.9 pg (27.0-31.0); Mean Corpuscular Volume 90.6 fL (80.0-94.0); Mean Platelet Volume 12.4 fL (7.4-10.4); Platelet Count 441 10^3/uL (130-400); Red Blood Cell Count 4.67 10^6/uL (4.70-6.10); Red Cell Dist. Width 15.2 % (11.5-14.5); White Blood Cell Count 24.5 10^3/uL (4.8-10.8)
--- NOTE | 2024-09-29 08:50 | W.PN.VS ---
Today's Communication / Plan
-
Patient seen and examined at bedside with Dr. Merlin Roy III, below plan reviewed with attending.
Assessment/Plan
-
Assessment: 69-year-old male with peripheral arterial disease, POD #1 Intravascular lithotripsy to right anterior tibial artery (shockwave Javelin catheter to cross proximal occlusion followed by 3 mm x 80 mm E8), Intravascular lithotripsy to right
superficial femoral artery and popliteal artery (7 mm x 60 mm M5+), bioabsorbable drug-eluting scaffold stent to right proximal anterior tibial artery (2.5 mm x 28 mm Perez Esprit, postdilated to 3 mm), diagnostic aortobiiliac arteriogram,
diagnostic right lower extremity arteriogram, ultrasound-Guided percutaneous access to the left common femoral artery, ultrasound-Guided percutaneous retrograde pedal access, right dorsalis pedis
Plan:
Patient stable for discharge to home
Per order of Dr. Merlin Roy patient is to initiate Plavix 75 mg p.o. daily to ensure patency of newly placed stent
Follow-up appointment placed in discharge instructions
Subjective Data
-
Date of Service: September 29, 2024
Patient seen and examined at bedside, offers no complaints and reports no pain at left groin puncture site. Additionally notes no discomfort at right pedal site. Reports tolerating p.o. diet.
Objective Data
-
Vital Signs
Temp Pulse Resp BP Pulse Ox
98.0 F 65 17 126/68 95
09/29/24 07:57 09/29/24 07:57 09/29/24 07:57 09/29/24 07:57 09/29/24 07:57
Intake and Output
09/28/24 09/29/24 09/30/24
06:59 06:59 06:59
Intake Total 1685 / 1685
Output Total 1300 / 1300
Balance 385 / 385
Intake:
Oral fluids 600 / 600
IV fluids (Total) 1085 / 1085
normal saline 125 / 125
Output:
Urine, Voided 1300 / 1300
Lab Results
09/29/24 07:42
Calcium 9.0 mg/dl (8.4-10.2) 09/28/24 09:31
Physical Exam
-
No apparent distress, resting in bed comfortably
No tachycardia
No dyspnea on room air
ABD rotund, nondistended, nontender
Left groin puncture site CDI, no evidence of hematoma, all surrounding compartments soft
Right foot pedal access CDI, no evidence of hematoma
Right Doppler DP signal
[2024-09-29 09:01] LABS: Blood Urea Nitrogen 25 mg/dl (9-20); Calcium 8.4 mg/dl (8.4-10.2); Carbon Dioxide 26 mmol/L (22-30); Chloride 109 mmol/L (98-107); Estimated Creatinine Clearance 90 ml/min; Glucose 124 mg/dl (70-99); Potassium 4.3 mmol/L (3.5-5.1); Sodium 143 mmol/L (135-145); eGFR > 60.00
--- NOTE | 2024-09-29 09:26 | W.DS.TRANS ---
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
-
Discharge Instructions:
Discharge Diagnosis/Procedures Right lower extremity angiogram with
intervention
Diet As tolerated
Activity No strenuous activity
Driving Restrictions No driving for 48 hours
Bathing Restrictions OK to Shower
Others Tests Your repeat arterial ultrasound is scheduled on
10/22/2024 at 2 PM here at [facility]
Instructions:
Stand-Alone Forms: Vascular Surg Discharge Instr
Changes to Home Medications: Yes
Discharge Medications:
DC Medications w/original date entered in [employer]
levothyroxine 50 mcg tablet 50 mcg PO DAILY Thyroid 11/03/22
acetaminophen 500 mg tablet (Tylenol Extra Strength) 1,000 mg PO QIDPRN PRN mild pain 11/08/22
ascorbate calcium (vitamin C) 500 mg tablet 500 mg PO DAILY Supplement 11/08/22
prednisone 10 mg tablet 10 mg PO DAILY inflammation 11/08/22
therapeutic multivitamin 1 tab PO DAILY Supplement 11/08/22
[place] 500 mg PO DAILY Supplement 06/27/23
pantoprazole 40 mg tablet,delayed release 40 mg PO DAILY Gastrointestinal Issue 12/18/23
oxycodone 5 mg tablet 5 mg PO DAILY PRN Pain 09/24/24
romiplostim 250 mcg subcutaneous solution (Nplate) 250 mcg SC WEEKLY 09/24/24
calcium 600 mg (as carbonate)-vit D3 10 mcg (400 unit)-minerals tablet 1 tab PO DAILY 09/28/24
ferrous sulfate 325 mg (65 mg iron) tablet (Iron (ferrous sulfate)) 325 mg PO DAILY 09/28/24
clopidogrel 75 mg tablet 75 mg PO DAILY #90 tabs 09/29/24
Home Medication Changes
Added:
clopidogrel 75 mg tablet 75 mg PO DAILY #90 tabs 09/29/24
Pending Results: No
[2024-09-29] MEDS: PLAVIX 75 MG PO (09:47)
[2024-09-29] MEDS: VITAMIN C 500 MG PO (09:47)
[2024-09-29] MEDS: FEOSOL 325 MG PO (09:47)
[2024-09-29] MEDS: PROTONIX 40 MG PO (09:47)
[2024-09-29] MEDS: THERAGRAN 1 TABLET PO (09:47)
[2024-09-29] MEDS: OSCAL 500 + D 500 MG PO (09:47)
[2024-09-29] MEDS: DELTASONE 10 MG PO (09:47)
--- NOTE | 2024-09-29 10:38 | CM ---
CM reviewed chart, patient seen bedside, initial assessment completed. Patient resides with his 94 year old father in a one story home, two steps to enter. Patient currently ambulating with crutches, has a walker at home. Patient reports VN in past,
denies SNF. Patient confirms PCP Cindy Mckinney, pharmacy [facility] in [place]. Patient for discharge today, confirms transportation home, requesting records sent to Dr. Moreno Chapman, form on chart. CM will continue to follow for all
discharge planning needs.
Plan; home no needs.
== END 2024-09-29 11:27 | disposition home or self-care (01) ==
LOC: CATH 09:16
PROVIDERS: Nurse Practitioner; Nurse Practitioner Acute Care; ATTENDING PHYSICIAN Surgery Vascular Surgery; OTHER PHYSICIAN Internal Medicine Cardiovascular Disease
DX: I70.235 Atherosclerosis of native arteries of right leg with ulceration of other part of foot (principal); M06.9 Rheumatoid arthritis, unspecified; I70.90 Unspecified atherosclerosis; L97.519 Non-pressure chronic ulcer of other part of right foot with unspecified severity; D69.6 Thrombocytopenia, unspecified; Z79.02 Long term (current) use of antithrombotics/antiplatelets; Z88.2 Allergy status to sulfonamides; Z88.0 Allergy status to penicillin; Z88.6 Allergy status to analgesic agent; Z79.890 Hormone replacement therapy; Z79.52 Long term (current) use of systemic steroids
CPT/HCPCS: C9773; C9764; 75625; 75716; 80048; 85027; 87070; C1725; C1769; C1874; C1894; Q9967

== ENCOUNTER → 2024-10-08 10:13 | Outpatient (REF) | payer MEDICARE, OTHER, SELFPAY ==
[2024-10-08 11:44] LABS: Hematocrit 40.4 % (39.0-52.0); Hemoglobin 13.2 g/dL (13.0-18.0); Mean Corp Hgb Conc. 32.7 g/dL (33.0-37.0); Mean Corpuscular Hgb 29.3 pg (27.0-31.0); Mean Corpuscular Volume 89.8 fL (80.0-94.0); White Blood Cell Count 20.6 10^3/uL (4.8-10.8)
[2024-10-08 11:49] LABS: % Basophils 0.5 % (0-2); % Eosinophils 0.2 % (0-6); % Immature Granulocytes 6.6 % (0-0.5); % Lymphocytes 3.5 % (20.5-51.1); % Monocytes 8.9 % (1.7-9.3); % Neutrophils 80.3 % (42.2-75.2); Absolute Basophils 0.1 10^3/uL (0-0.2); Absolute Immature Granulocytes 1.4 10^3/uL (0-0.05); Absolute Lymphocytes 0.7 10^3/uL (1.2-3.4); Absolute Monocytes 1.8 10^3/uL (0.1-0.6); Absolute Neutrophils 16.5 10^3/uL (1.4-6.5); Nucleated Red Blood Cells % 0 % (-)
== END ==
LOC: REG 10:13
PROVIDERS: ATTENDING PHYSICIAN Internal Medicine Hematology & Oncology; FAMILY PHYSICIAN Nurse Practitioner
DX: D69.3 Immune thrombocytopenic purpura (principal); M06.9 Rheumatoid arthritis, unspecified; R10.84 Generalized abdominal pain; R18.8 Other ascites
CPT/HCPCS: 36415; 85025

== ENCOUNTER → 2024-10-12 16:18 | Outpatient (REF) | payer MEDICARE, OTHER, SELFPAY ==
[2024-10-12 19:46] LABS: % Basophils 0.5 % (0-2); % Eosinophils 0.3 % (0-6); % Immature Granulocytes 5.4 % (0-0.5); % Lymphocytes 4.6 % (20.5-51.1); % Monocytes 10.2 % (1.7-9.3); Absolute Basophils 0.1 10^3/uL (0-0.2); Absolute Eosinophils 0.1 10^3/uL (0-0.7); Absolute Immature Granulocytes 1.1 10^3/uL (0-0.05); Absolute Lymphocytes 0.9 10^3/uL (1.2-3.4); Absolute Monocytes 2.1 10^3/uL (0.1-0.6); Absolute Neutrophils 15.8 10^3/uL (1.4-6.5); Hematocrit 36.7 % (39.0-52.0); Hemoglobin 12.3 g/dL (13.0-18.0); Mean Corp Hgb Conc. 33.5 g/dL (33.0-37.0); Mean Corpuscular Hgb 29.6 pg (27.0-31.0); Mean Corpuscular Volume 88.4 fL (80.0-94.0); Nucleated Red Blood Cells % 0.2 % (-); Platelet Count 27 10^3/uL (130-400); Red Blood Cell Count 4.15 10^6/uL (4.70-6.10); Red Cell Dist. Width 15.2 % (11.5-14.5)
== END ==
LOC: REG 16:18
PROVIDERS: ATTENDING PHYSICIAN Internal Medicine Hematology & Oncology; FAMILY PHYSICIAN Nurse Practitioner
DX: D69.3 Immune thrombocytopenic purpura (principal); M06.9 Rheumatoid arthritis, unspecified; R14.0 Abdominal distension (gaseous); R10.84 Generalized abdominal pain; R18.8 Other ascites
CPT/HCPCS: 36415; 85025

== ENCOUNTER → 2024-10-15 10:35 | Outpatient (REF) | payer MEDICARE, OTHER, SELFPAY ==
[2024-10-15 11:18] LABS: % Basophils 0.4 % (0-2); % Immature Granulocytes 4.9 % (0-0.5); % Lymphocytes 3.5 % (20.5-51.1); % Monocytes 7.7 % (1.7-9.3); % Neutrophils 83.5 % (42.2-75.2); Absolute Basophils 0.1 10^3/uL (0-0.2); Absolute Lymphocytes 0.7 10^3/uL (1.2-3.4); Absolute Monocytes 1.6 10^3/uL (0.1-0.6); Absolute Neutrophils 17.7 10^3/uL (1.4-6.5); Hematocrit 39.9 % (39.0-52.0); Mean Corp Hgb Conc. 32.6 g/dL (33.0-37.0); Mean Corpuscular Hgb 29.3 pg (27.0-31.0); Mean Corpuscular Volume 89.9 fL (80.0-94.0); Nucleated Red Blood Cells % 0.3 % (-); Platelet Count 117 10^3/uL (130-400); Red Blood Cell Count 4.44 10^6/uL (4.70-6.10); Red Cell Dist. Width 15.6 % (11.5-14.5); White Blood Cell Count 21.2 10^3/uL (4.8-10.8)
== END ==
LOC: REG 10:35
PROVIDERS: ATTENDING PHYSICIAN Internal Medicine Hematology & Oncology; FAMILY PHYSICIAN Nurse Practitioner
DX: D69.3 Immune thrombocytopenic purpura (principal); M06.9 Rheumatoid arthritis, unspecified; R14.0 Abdominal distension (gaseous); R10.84 Generalized abdominal pain; R18.8 Other ascites
CPT/HCPCS: 36415; 85025

== ENCOUNTER → 2024-10-22 10:35 | Outpatient (REF) | payer MEDICARE, OTHER, SELFPAY ==
[2024-10-22 11:21] LABS: % Basophils 0.6 % (0-2); % Eosinophils 0.1 % (0-6); % Lymphocytes 4.8 % (20.5-51.1); % Monocytes 9.1 % (1.7-9.3); % Neutrophils 80.4 % (42.2-75.2); Absolute Basophils 0.1 10^3/uL (0-0.2); Absolute Immature Granulocytes 0.8 10^3/uL (0-0.05); Absolute Lymphocytes 0.8 10^3/uL (1.2-3.4); Absolute Monocytes 1.5 10^3/uL (0.1-0.6); Hematocrit 40.9 % (39.0-52.0); Hemoglobin 13.1 g/dL (13.0-18.0); Mean Corpuscular Hgb 29.6 pg (27.0-31.0); Mean Corpuscular Volume 92.3 fL (80.0-94.0); Nucleated Red Blood Cells % 0.2 % (-); Red Blood Cell Count 4.43 10^6/uL (4.70-6.10); Red Cell Dist. Width 15.9 % (11.5-14.5); White Blood Cell Count 16.1 10^3/uL (4.8-10.8)
[2024-10-22 11:28] LABS: Mean Platelet Volume 11.4 fL (7.4-10.4)
[2024-10-22 11:29] LABS: Platelet Count 675 10^3/uL (130-400)
== END ==
LOC: RAD 10:35
PROVIDERS: ATTENDING PHYSICIAN Surgery Vascular Surgery; FAMILY PHYSICIAN Internal Medicine Hematology & Oncology; REFERRING PHYSICIAN Nurse Practitioner
DX: D69.3 Immune thrombocytopenic purpura (principal); M06.9 Rheumatoid arthritis, unspecified; R14.0 Abdominal distension (gaseous); R10.84 Generalized abdominal pain; R18.8 Other ascites; I70.203 Unspecified atherosclerosis of native arteries of extremities, bilateral legs
CPT/HCPCS: 36415; 85025; 93922; 93925

== ENCOUNTER → 2024-10-30 11:40 | Outpatient (REF) | payer MEDICARE, OTHER, SELFPAY ==
[2024-10-30 12:34] LABS: % Basophils 0.6 % (0-2); % Eosinophils 0.1 % (0-6); % Immature Granulocytes 3.1 % (0-0.5); % Lymphocytes 5.3 % (20.5-51.1); % Monocytes 9.1 % (1.7-9.3); % Neutrophils 81.8 % (42.2-75.2); Absolute Basophils 0.1 10^3/uL (0-0.2); Absolute Immature Granulocytes 0.4 10^3/uL (0-0.05); Absolute Lymphocytes 0.7 10^3/uL (1.2-3.4); Absolute Monocytes 1.2 10^3/uL (0.1-0.6); Absolute Neutrophils 10.4 10^3/uL (1.4-6.5); Hematocrit 38.2 % (39.0-52.0); Hemoglobin 12.4 g/dL (13.0-18.0); Mean Corp Hgb Conc. 32.5 g/dL (33.0-37.0); Mean Corpuscular Hgb 29.5 pg (27.0-31.0); Mean Platelet Volume 11.3 fL (7.4-10.4); Nucleated Red Blood Cells % 0.2 % (-); Platelet Count 489 10^3/uL (130-400); Red Cell Dist. Width 15.2 % (11.5-14.5); White Blood Cell Count 12.7 10^3/uL (4.8-10.8)
== END ==
LOC: REG 11:40
PROVIDERS: ATTENDING PHYSICIAN Internal Medicine Hematology & Oncology
DX: D69.3 Immune thrombocytopenic purpura (principal); M06.9 Rheumatoid arthritis, unspecified; R14.0 Abdominal distension (gaseous); R10.84 Generalized abdominal pain; R18.8 Other ascites
CPT/HCPCS: 36415; 85025

== ENCOUNTER → 2024-11-06 11:56 | Outpatient (REF) | payer MEDICARE, OTHER, SELFPAY ==
[2024-11-06 12:40] LABS: % Basophils 0.5 % (0-2); % Immature Granulocytes 2.8 % (0-0.5); % Lymphocytes 4.8 % (20.5-51.1); % Monocytes 10.9 % (1.7-9.3); Absolute Basophils 0.1 10^3/uL (0-0.2); Absolute Immature Granulocytes 0.4 10^3/uL (0-0.05); Absolute Lymphocytes 0.7 10^3/uL (1.2-3.4); Absolute Monocytes 1.5 10^3/uL (0.1-0.6); Absolute Neutrophils 11.1 10^3/uL (1.4-6.5); Hematocrit 36.4 % (39.0-52.0); Hemoglobin 12.1 g/dL (13.0-18.0); Mean Corp Hgb Conc. 33.2 g/dL (33.0-37.0); Mean Corpuscular Volume 90.1 fL (80.0-94.0); Nucleated Red Blood Cells % 0.1 % (-); Red Blood Cell Count 4.04 10^6/uL (4.70-6.10); Red Cell Dist. Width 14.9 % (11.5-14.5); White Blood Cell Count 13.7 10^3/uL (4.8-10.8)
[2024-11-06 13:10] LABS: Platelet Count 11 10^3/uL (130-400)
== END ==
LOC: REG 11:56
PROVIDERS: ATTENDING PHYSICIAN Internal Medicine Hematology & Oncology; FAMILY PHYSICIAN Family Medicine
DX: D69.3 Immune thrombocytopenic purpura (principal); M06.9 Rheumatoid arthritis, unspecified; R14.0 Abdominal distension (gaseous); R10.84 Generalized abdominal pain; R18.8 Other ascites
CPT/HCPCS: 36415; 85025

== ENCOUNTER → 2024-11-13 08:41 | Outpatient (REF) | payer MEDICARE, OTHER, SELFPAY ==
[2024-11-13 09:37] LABS: % Basophils 0.4 % (0-2); % Immature Granulocytes 3.8 % (0-0.5); % Lymphocytes 3.3 % (20.5-51.1); % Monocytes 10.3 % (1.7-9.3); % Neutrophils 82.2 % (42.2-75.2); Absolute Basophils 0.1 10^3/uL (0-0.2); Absolute Immature Granulocytes 0.9 10^3/uL (0-0.05); Absolute Lymphocytes 0.8 10^3/uL (1.2-3.4); Absolute Monocytes 2.6 10^3/uL (0.1-0.6); Absolute Neutrophils 20.5 10^3/uL (1.4-6.5); Hematocrit 37.6 % (39.0-52.0); Hemoglobin 12.4 g/dL (13.0-18.0); Mean Corpuscular Hgb 29.7 pg (27.0-31.0); Mean Corpuscular Volume 90.2 fL (80.0-94.0); Nucleated Red Blood Cells % 0.2 % (-); Red Blood Cell Count 4.17 10^6/uL (4.70-6.10); Red Cell Dist. Width 15.5 % (11.5-14.5); White Blood Cell Count 24.9 10^3/uL (4.8-10.8)
[2024-11-13 11:15] LABS: Platelet Count 233 10^3/uL (130-400)
== END ==
LOC: REG 08:41
PROVIDERS: ATTENDING PHYSICIAN Internal Medicine Hematology & Oncology; FAMILY PHYSICIAN Family Medicine
DX: D69.3 Immune thrombocytopenic purpura (principal); M06.9 Rheumatoid arthritis, unspecified; R14.0 Abdominal distension (gaseous); R10.84 Generalized abdominal pain; R18.8 Other ascites
CPT/HCPCS: 36415; 85025

== ENCOUNTER → 2024-11-20 11:30 | Outpatient (REF) | payer MEDICARE, OTHER, SELFPAY ==
[2024-11-20 12:21] LABS: % Basophils 0.5 % (0-2); % Eosinophils 0.1 % (0-6); % Immature Granulocytes 4.1 % (0-0.5); % Lymphocytes 3.3 % (20.5-51.1); % Monocytes 8.3 % (1.7-9.3); % Neutrophils 83.7 % (42.2-75.2); Absolute Basophils 0.1 10^3/uL (0-0.2); Absolute Immature Granulocytes 0.8 10^3/uL (0-0.05); Absolute Lymphocytes 0.6 10^3/uL (1.2-3.4); Absolute Monocytes 1.6 10^3/uL (0.1-0.6); Hemoglobin 12.1 g/dL (13.0-18.0); Mean Corp Hgb Conc. 32.7 g/dL (33.0-37.0); Mean Corpuscular Hgb 29.2 pg (27.0-31.0); Mean Corpuscular Volume 89.2 fL (80.0-94.0); Mean Platelet Volume 11.4 fL (7.4-10.4); Nucleated Red Blood Cells % 0 % (-); Platelet Count 470 10^3/uL (130-400); Red Blood Cell Count 4.15 10^6/uL (4.70-6.10); White Blood Cell Count 19.1 10^3/uL (4.8-10.8)
== END ==
LOC: REG 11:30
PROVIDERS: ATTENDING PHYSICIAN Internal Medicine Hematology & Oncology
DX: D69.3 Immune thrombocytopenic purpura (principal); M06.9 Rheumatoid arthritis, unspecified; R14.0 Abdominal distension (gaseous); R10.84 Generalized abdominal pain; R18.8 Other ascites
CPT/HCPCS: 36415; 85025

== ENCOUNTER → 2024-12-02 10:49 | Outpatient (REF) | payer MEDICARE, OTHER, SELFPAY ==
[2024-12-02 13:19] LABS: Hematocrit 38.6 % (39.0-52.0); Hemoglobin 12.4 g/dL (13.0-18.0); Mean Corp Hgb Conc. 32.1 g/dL (33.0-37.0); Mean Corpuscular Volume 89.8 fL (80.0-94.0); Nucleated Red Blood Cells % 0.1 % (-); Red Cell Dist. Width 15.3 % (11.5-14.5)
[2024-12-02 13:20] LABS: Platelet Count 40 10^3/uL (130-400)
== END ==
LOC: REG 10:49
PROVIDERS: ATTENDING PHYSICIAN Internal Medicine Hematology & Oncology; FAMILY PHYSICIAN Nurse Practitioner; REFERRING PHYSICIAN Family Medicine
DX: D69.3 Immune thrombocytopenic purpura (principal); M06.9 Rheumatoid arthritis, unspecified; R14.0 Abdominal distension (gaseous); R10.84 Generalized abdominal pain; R18.8 Other ascites
CPT/HCPCS: 36415; 85025

== ENCOUNTER → 2024-12-11 12:02 | Outpatient (REF) | payer MEDICARE, OTHER, SELFPAY ==
[2024-12-11 12:59] LABS: Hematocrit 30.8 % (39.0-52.0); Hemoglobin 10.0 g/dL (13.0-18.0); Mean Corp Hgb Conc. 32.5 g/dL (33.0-37.0); Mean Corpuscular Volume 90.6 fL (80.0-94.0); Platelet Count 161 10^3/uL (130-400); Red Cell Dist. Width 16.1 % (11.5-14.5)
[2024-12-11 13:00] LABS: Nucleated Red Blood Cells % 0.06 % (-)
== END ==
LOC: REG 12:02
PROVIDERS: ATTENDING PHYSICIAN Internal Medicine Hematology & Oncology; FAMILY PHYSICIAN Family Medicine
DX: D69.3 Immune thrombocytopenic purpura (principal); M06.9 Rheumatoid arthritis, unspecified; R14.0 Abdominal distension (gaseous); R10.0 Acute abdomen; R18.0 Malignant ascites
CPT/HCPCS: 36415; 85025

== ENCOUNTER → 2024-12-21 09:58 | Outpatient (REF) | payer MEDICARE, OTHER, SELFPAY ==
[2024-12-21 10:30] LABS: Hematocrit 34.5 % (39.0-52.0); Hemoglobin 10.9 g/dL (13.0-18.0); Mean Corp Hgb Conc. 31.6 g/dL (33.0-37.0); Mean Corpuscular Volume 91.3 fL (80.0-94.0); Nucleated Red Blood Cells % 0.1 % (-); Platelet Count 553 10^3/uL (130-400); Red Cell Dist. Width 15.9 % (11.5-14.5)
== END ==
LOC: REG 09:58
PROVIDERS: ATTENDING PHYSICIAN Internal Medicine Hematology & Oncology; FAMILY PHYSICIAN Family Medicine
DX: D69.3 Immune thrombocytopenic purpura (principal); M06.9 Rheumatoid arthritis, unspecified; R14.0 Abdominal distension (gaseous); R10.84 Generalized abdominal pain; R18.8 Other ascites; M19.90 Unspecified osteoarthritis, unspecified site
CPT/HCPCS: 36415; 85025

== ENCOUNTER → 2024-12-28 11:34 | Outpatient (REF) | payer MEDICARE, OTHER, SELFPAY ==
[2024-12-28 12:56] LABS: Hematocrit 34.8 % (39.0-52.0); Hemoglobin 11.0 g/dL (13.0-18.0); Mean Corp Hgb Conc. 31.6 g/dL (33.0-37.0); Mean Corpuscular Volume 90.4 fL (80.0-94.0); Red Cell Dist. Width 16.1 % (11.5-14.5)
[2024-12-28 12:59] LABS: Platelet Count 16 10^3/uL (130-400)
[2024-12-28 13:00] LABS: Absolute Neutrophils -Man Diff 14.6 10^3/uL (1.4-6.5); Platelets Checked Yes
[2024-12-28 13:01] LABS: Anisocytosis 1+; Basophilic Stippling 1+; Hypochromasia 1+; Normal RBC Morphology No; Polychromasia 1+
[2024-12-28 13:02] LABS: Acanthocytes 1+; Ovalocytes FEW; Total Cells Counted 100
== END ==
LOC: REG 11:34
PROVIDERS: ATTENDING PHYSICIAN Internal Medicine Hematology & Oncology; FAMILY PHYSICIAN Family Medicine
DX: D69.3 Immune thrombocytopenic purpura (principal); M06.9 Rheumatoid arthritis, unspecified; R14.0 Abdominal distension (gaseous); R10.84 Generalized abdominal pain; R18.8 Other ascites; M19.90 Unspecified osteoarthritis, unspecified site
CPT/HCPCS: 36415; 85025

== ENCOUNTER → 2025-01-04 11:22 | Outpatient (REF) | payer MEDICARE, OTHER, SELFPAY ==
[2025-01-04 14:17] LABS: Hematocrit 38.4 % (39.0-52.0); Hemoglobin 12.1 g/dL (13.0-18.0); Mean Corp Hgb Conc. 31.5 g/dL (33.0-37.0); Mean Corpuscular Volume 91.4 fL (80.0-94.0); Nucleated Red Blood Cells % 0 % (-); Red Cell Dist. Width 16.4 % (11.5-14.5)
[2025-01-04 14:18] LABS: Platelet Count 172 10^3/uL (130-400)
== END ==
LOC: RAD 11:22
PROVIDERS: ATTENDING PHYSICIAN Internal Medicine Hematology & Oncology; FAMILY PHYSICIAN Family Medicine; OTHER PHYSICIAN Family Medicine
DX: D69.3 Immune thrombocytopenic purpura (principal); M06.9 Rheumatoid arthritis, unspecified; R14.0 Abdominal distension (gaseous); R10.84 Generalized abdominal pain; R18.8 Other ascites; M19.90 Unspecified osteoarthritis, unspecified site
CPT/HCPCS: 36415; 85025

== ENCOUNTER → 2025-01-11 11:04 | Outpatient (REF) | payer MEDICARE, OTHER, SELFPAY ==
[2025-01-11 12:18] LABS: Hematocrit 34.4 % (39.0-52.0); Hemoglobin 10.7 g/dL (13.0-18.0); Mean Corp Hgb Conc. 31.1 g/dL (33.0-37.0); Mean Corpuscular Volume 92.5 fL (80.0-94.0); Nucleated Red Blood Cells % 0.1 % (-); Red Cell Dist. Width 16.1 % (11.5-14.5)
[2025-01-11 13:18] LABS: Platelet Count 263 10^3/uL (130-400)
== END ==
LOC: REG 11:04
PROVIDERS: ATTENDING PHYSICIAN Internal Medicine Hematology & Oncology; FAMILY PHYSICIAN Family Medicine
DX: D69.3 Immune thrombocytopenic purpura (principal); M06.9 Rheumatoid arthritis, unspecified; R14.0 Abdominal distension (gaseous); R10.84 Generalized abdominal pain; R18.8 Other ascites; M19.90 Unspecified osteoarthritis, unspecified site
CPT/HCPCS: 36415; 85025

== ENCOUNTER → 2025-01-18 11:43 | Outpatient (REF) | payer MEDICARE, OTHER, SELFPAY ==
[2025-01-18 12:43] LABS: Hematocrit 37.5 % (39.0-52.0); Hemoglobin 11.9 g/dL (13.0-18.0); Mean Corp Hgb Conc. 31.7 g/dL (33.0-37.0); Mean Corpuscular Volume 88.9 fL (80.0-94.0); Nucleated Red Blood Cells % 0 % (-); Red Cell Dist. Width 15.8 % (11.5-14.5)
[2025-01-18 12:52] LABS: Platelet Count 495 10^3/uL (130-400)
== END ==
LOC: REG 11:43
PROVIDERS: ATTENDING PHYSICIAN Internal Medicine Hematology & Oncology; FAMILY PHYSICIAN Family Medicine
DX: D69.3 Immune thrombocytopenic purpura (principal); M06.9 Rheumatoid arthritis, unspecified; R14.0 Abdominal distension (gaseous); R10.84 Generalized abdominal pain; R18.8 Other ascites; M19.90 Unspecified osteoarthritis, unspecified site
CPT/HCPCS: 36415; 85025

== ENCOUNTER → 2025-01-27 11:27 | Outpatient (REF) | payer MEDICARE, OTHER, SELFPAY ==
[2025-01-27 12:42] LABS: Hematocrit 40.5 % (39.0-52.0); Hemoglobin 12.6 g/dL (13.0-18.0); Mean Corp Hgb Conc. 31.1 g/dL (33.0-37.0); Mean Corpuscular Volume 88.8 fL (80.0-94.0); Nucleated Red Blood Cells % 0.1 % (-); Platelet Count 429 10^3/uL (130-400); Red Cell Dist. Width 16.1 % (11.5-14.5)
== END ==
LOC: REG 11:27
PROVIDERS: ATTENDING PHYSICIAN Internal Medicine Hematology & Oncology; FAMILY PHYSICIAN Family Medicine; REFERRING PHYSICIAN Family Medicine
DX: D69.3 Immune thrombocytopenic purpura (principal); M06.9 Rheumatoid arthritis, unspecified; R14.0 Abdominal distension (gaseous); R10.84 Generalized abdominal pain; R18.8 Other ascites; M19.90 Unspecified osteoarthritis, unspecified site
CPT/HCPCS: 36415; 85025

== ENCOUNTER 2025-01-28 18:12 | Inpatient (IN) | payer MEDICARE, OTHER, SELFPAY ==
[2025-01-28] VITALS (17 sets, daily range): BP systolic 82–122; BP diastolic 54–74; BMI 22.9
--- NOTE | 2025-01-28 14:55 | ED.GENMED ---
History of Present Illness
<Conchis Herron PA-C - Last Filed: 01/28/25 21:36>
General
Chief Complaint: Rectal Bleeding
Source: patient
Exam Limitations: none
Time Seen by Provider: 01/28/25 14:40
History of Present Illness
History of Present Illness:
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 Marte, on chronic prednisone and receives Nplate injections weekly), peripheral artery disease, hyperlipidemia, hypothyroidism, and diverticulosis presenting for evaluation of rectal bleeding.
Patient reports starting with dark red rectal bleeding around 9:30am this morning. He reports passing a large amount of blood about 4x since then. He reports feeling weak from blood loss. No dizziness or syncope. He has had similar bleeding in
the past from his ITP although he had blood work yesterday and platelets were 429. Last colonoscopy in July 2024 revealed multiple large-mouth and small-mouthed diverticula throughout entire colon with internal hemorrhoids. He does not take any
blood thinners.
Phy Exam
<Conchis Herron PA-C - Last Filed: 01/28/25 21:36>
General Physical Exam
General Presentation: moderate distress
General Skin: warm and dry
General Habitus: normal
General Mental: alert
ENT Exam
ENT Exam: normocephalic
Cardiovascular Exam
Cardiovascular Exam: regular rate/rhythm
Pulmonary Exam
Pulmonary Exam: no respiratory distress
Gastrointestinal Exam
Gastrointestinal Exam: non tender, soft, distended and other (Abdomen distended which patient states is baseline for him. No tenderness noted.)
Stool: other (Maroon colored stool noted on digital rectal exam.)
Neurological Exam
Neurological Exam: alert
Goldie Coma Scale
Eye Opening: Spontaneous
Verbal Response: Oriented
Motor Response: Obeys Commands
GCS Total Score: 15
Skin Exam
Skin Exam: normal color and warm/dry
Psychiatric Exam
Psychiatric Exam: normal mood/affect
Course
<Conchis Herron PA-C - Last Filed: 01/28/25 21:36>
Orders/Labs/Results
Orders:
Orders
01/28/25 14:54
CT Angio Abd/Pelvis w/wo IV [CT Abd/pelvis Angio W/wo Iv] Urgent
Comment:
Reason For Exam: GI bleed
Cardiac Monitoring- Treatment ONCE
01/28/25 Dinner
Clear Liquid
At Your Request: Full Participation
01/28/25 15:06
Type+Screen Urgent
Complete Blood Count/With Diff Urgent
Comprehensive Metabolic Panel Urgent
Magnesium Urgent
PTT Urgent
Phosphorus Urgent
Prothrombin Time Urgent
01/28/25 15:25
Oxycodone [Roxicodone] 5 mg PO NOW STA
01/28/25 16:14
Blood Bank Products [* Blood Bank Products] Stat
Blood Bank Products: *Packed RBC Leuko(PRBC's)
Quantity: 1
Transfuse Today: Yes
Reason: Bleeding
0.9% Sodium Chloride 1000 ml [Nss] 1,000 ml IV BOLUS
01/28/25 17:01
Pantoprazole [Protonix IV] 80 mg IV NOW STA
01/28/25 17:15
Pantoprazole 80 mg/100 ml Nss [Protonix] 80 mg in 100 ml IV Q10H
01/28/25 17:37
Admit/Transfer Patient As Directed
Co-Sign Provider:
Level of Care: Inpatient admission
Assign to:: IMU- Intermediate Care
Physician / Group: lexy gee
Diagnosis: acute gi bleed likely diverticular,hypotension, new mesenteric mass
Reason for Hospitalization: acute gi bleed likely diverticular,hypotension, new mesenteric mass
Expected length of stay greater than two midnights?: Yes
ELOS- Estimated Length of Stay in days: 3
I certify the patient meets the requirements for IP care: Yes
GASTROINTESTINAL CONSULT Routine
Consulting Provider: Brina Gamez
Was physician already notified: Yes
Reason for consult: maroon colored bleeding likely diverticular, mass mesenteric new
01/28/25 17:38
Code Status As Directed
Resuscitation Status: Full Code
01/28/25 17:40
PRN Pain Medication Management As Directed
May give lesser potent ordered pain med per pt: Yes
preference::
Protocol:: Medication orders for pain may be administered in a
manner that supports deferring to patient preference
when the pt is:
- Requesting an ordered lesser potent pain medication.
Least to most potent pain medications are defined
as: acetaminophen < NSAID < tramadol < opioids
(morphine, oxycodone, hydromorphone).
- Requesting a lesser dose of the same medication IF
ORDERED.
- Requesting a less intrusive route of administration
if both routes are prescribed by the provider (PO <
IV).
01/28/25 18:59
Oxycodone [Roxicodone] 5 mg PO BIDPRN PRN severe pain
Oxycodone [Roxicodone] 5 mg PO QPM
01/28/25 18:59
Activity As Directed
Activity Level: With Assistance
Pneumatic Compression Sleeves As Directed
Type: Knee high
Vital Signs As Directed
Frequency: Per unit guidelines
Pt Eval And Treat Routine
Activity Level: With Assistance
DX Deep Vein Thrombosis Video Routine
01/29/25 00:00
H&H Urgent
01/29/25 06:00
Complete Blood Count/With Diff IN AM
Comprehensive Metabolic Panel IN AM
Levothyroxine [Synthroid] 50 mcg PO DAILY @ 0600
01/29/25 08:00
Pantoprazole [Protonix IV] 40 mg IV DAILY
Prednisone [Deltasone] 15 mg PO DAILY
01/30/25 06:00
Complete Blood Count/With Diff IN AM
Comprehensive Metabolic Panel IN AM
01/31/25 06:00
Complete Blood Count/With Diff IN AM
Comprehensive Metabolic Panel IN AM
02/01/25 08:00
Romiplostim [Nplate] 250 mcg SC MO
Abnormal Lab Results
01/28/25
15:06
WBC 23.8 H 10^3/uL
(4.8-10.8)
RBC 3.54 L 10^6/uL
(4.70-6.10)
Hgb 10.2 L g/dL
(13.0-18.0)
Hct 31.8 L %
(39.0-52.0)
MCHC 32.1 L g/dL
(33.0-37.0)
RDW 15.9 H %
(11.5-14.5)
MPV 11.8 H fL
(7.4-10.4)
Abs Immat Gran (auto) 0.5 H 10^3/uL
(0-0.05)
Absolute Neuts (auto) 21.6 H 10^3/uL
(1.4-6.5)
Absolute Lymphs (auto) 0.5 L 10^3/uL
(1.2-3.4)
Absolute Monos (auto) 1.1 H 10^3/uL
(0.1-0.6)
Immature Gran % 2.1 H %
(0-0.5)
Neutrophils % 90.7 H %
(42.2-75.2)
Lymphocytes % 2.2 L %
(20.5-51.1)
APTT 40.8 H Sec
(23.4-35.0)
Chloride 109 H mmol/L
(98-107)
BUN 31 H mg/dl
(9-20)
Glucose 149 H mg/dl
(70-99)
Calcium 7.9 L mg/dl
(8.4-10.2)
Total Protein 5.1 L g/dl
(6.3-8.2)
Albumin 3.1 L g/dl
(3.5-5.0)
Crossmatch IS Only See Detail
01/28/25 15:06
01/28/25 15:06
Vital Signs
Initial and Last Documented VS:
Initial Vital Signs
Temp Pulse Resp BP Pulse Ox
99 F 99 16 120/70 100
01/28/25 14:28 01/28/25 14:28 01/28/25 14:28 01/28/25 14:28 01/28/25 14:28
Last Documented Vital Signs
Temp Pulse Resp BP Pulse Ox
97.8 F 77 17 108/67 100
01/28/25 20:34 01/28/25 21:00 01/28/25 21:00 01/28/25 20:34 01/28/25 20:35
<Harry Huang MD - Last Filed: 01/28/25 18:15>
Orders/Labs/Results
Orders:
Orders
01/28/25 14:54
CT Angio Abd/Pelvis w/wo IV [CT Abd/pelvis Angio W/wo Iv] Urgent
Comment:
Reason For Exam: GI bleed
Cardiac Monitoring- Treatment ONCE
01/28/25 Dinner
Clear Liquid
At Your Request: Full Participation
01/28/25 15:06
Type+Screen Urgent
Complete Blood Count/With Diff Urgent
Comprehensive Metabolic Panel Urgent
Magnesium Urgent
PTT Urgent
Phosphorus Urgent
Prothrombin Time Urgent
01/28/25 15:25
Oxycodone [Roxicodone] 5 mg PO NOW STA
01/28/25 16:14
Blood Bank Products [* Blood Bank Products] Stat
Blood Bank Products: *Packed RBC Leuko(PRBC's)
Quantity: 1
Transfuse Today: Yes
Reason: Bleeding
0.9% Sodium Chloride 1000 ml [Nss] 1,000 ml IV BOLUS
01/28/25 17:01
Pantoprazole [Protonix IV] 80 mg IV NOW STA
01/28/25 17:15
Pantoprazole 80 mg/100 ml Nss [Protonix] 80 mg in 100 ml IV Q10H
01/28/25 17:37
Admit/Transfer Patient As Directed
Co-Sign Provider:
Level of Care: Inpatient admission
Assign to:: IMU- Intermediate Care
Physician / Group: lexy gee
Diagnosis: acute gi bleed likely diverticular,hypotension, new mesenteric mass
Reason for Hospitalization: acute gi bleed likely diverticular,hypotension, new mesenteric mass
Expected length of stay greater than two midnights?: Yes
ELOS- Estimated Length of Stay in days: 3
I certify the patient meets the requirements for IP care: Yes
GASTROINTESTINAL CONSULT Routine
Consulting Provider: Brina Gamez
Was physician already notified: Yes
Reason for consult: maroon colored bleeding likely diverticular, mass mesenteric new
01/28/25 17:38
Code Status As Directed
Resuscitation Status: Full Code
01/28/25 17:40
PRN Pain Medication Management As Directed
May give lesser potent ordered pain med per pt: Yes
preference::
Protocol:: Medication orders for pain may be administered in a
manner that supports deferring to patient preference
when the pt is:
- Requesting an ordered lesser potent pain medication.
Least to most potent pain medications are defined
as: acetaminophen < NSAID < tramadol < opioids
(morphine, oxycodone, hydromorphone).
- Requesting a lesser dose of the same medication IF
ORDERED.
- Requesting a less intrusive route of administration
if both routes are prescribed by the provider (PO <
IV).
01/28/25 18:59
Oxycodone [Roxicodone] 5 mg PO BIDPRN PRN severe pain
Oxycodone [Roxicodone] 5 mg PO QPM
01/28/25 18:59
Activity As Directed
Activity Level: With Assistance
Pneumatic Compression Sleeves As Directed
Type: Knee high
Vital Signs As Directed
Frequency: Per unit guidelines
Pt Eval And Treat Routine
Activity Level: With Assistance
DX Deep Vein Thrombosis Video Routine
01/29/25 00:00
H&H Urgent
01/29/25 06:00
Complete Blood Count/With Diff IN AM
Comprehensive Metabolic Panel IN AM
Levothyroxine [Synthroid] 50 mcg PO DAILY @ 0600
01/29/25 08:00
Pantoprazole [Protonix IV] 40 mg IV DAILY
Prednisone [Deltasone] 15 mg PO DAILY
01/30/25 06:00
Complete Blood Count/With Diff IN AM
Comprehensive Metabolic Panel IN AM
01/31/25 06:00
Complete Blood Count/With Diff IN AM
Comprehensive Metabolic Panel IN AM
02/01/25 08:00
Romiplostim [Nplate] 250 mcg SC MO
Abnormal Lab Results
01/28/25
15:06
WBC 23.8 H 10^3/uL
(4.8-10.8)
RBC 3.54 L 10^6/uL
(4.70-6.10)
Hgb 10.2 L g/dL
(13.0-18.0)
Hct 31.8 L %
(39.0-52.0)
MCHC 32.1 L g/dL
(33.0-37.0)
RDW 15.9 H %
(11.5-14.5)
MPV 11.8 H fL
(7.4-10.4)
Abs Immat Gran (auto) 0.5 H 10^3/uL
(0-0.05)
Absolute Neuts (auto) 21.6 H 10^3/uL
(1.4-6.5)
Absolute Lymphs (auto) 0.5 L 10^3/uL
(1.2-3.4)
Absolute Monos (auto) 1.1 H 10^3/uL
(0.1-0.6)
Immature Gran % 2.1 H %
(0-0.5)
Neutrophils % 90.7 H %
(42.2-75.2)
Lymphocytes % 2.2 L %
(20.5-51.1)
APTT 40.8 H Sec
(23.4-35.0)
Chloride 109 H mmol/L
(98-107)
BUN 31 H mg/dl
(9-20)
Glucose 149 H mg/dl
(70-99)
Calcium 7.9 L mg/dl
(8.4-10.2)
Total Protein 5.1 L g/dl
(6.3-8.2)
Albumin 3.1 L g/dl
(3.5-5.0)
Crossmatch IS Only See Detail
01/28/25 15:06
01/28/25 15:06
Vital Signs
Initial and Last Documented VS:
Initial Vital Signs
Temp Pulse Resp BP Pulse Ox
99 F 99 16 120/70 100
01/28/25 14:28 01/28/25 14:28 01/28/25 14:28 01/28/25 14:28 01/28/25 14:28
Last Documented Vital Signs
Temp Pulse Resp BP Pulse Ox
97.8 F 77 17 108/67 100
01/28/25 20:34 01/28/25 21:00 01/28/25 21:00 01/28/25 20:34 01/28/25 20:35
<Conchis Herron PA-C - Last Filed: 01/28/25 21:36>
MDM/Problems Addressed
Differential Diagnosis Includes:
69yoM here with rectal bleeding that began this morning. He reports several bouts of large bleeding. Triage nurse notes copious amount of blood in triage bathroom. Hx of ITP although platelets were normal yesterday. VSS. He is ill appearing on exam
and maroon colored stool noted on digital rectal exam. Differential diagnosis includes but is not limited to: diverticular bleeding, hemorrhoidal bleeding, AVM, malignancy, acute blood loss anemia
Initial ED plan: Check CBC, CMP, coags, type and screen, and CTA abdomen.
<Conchis Herron PA-C - Last Filed: 01/28/25 21:36>
*Pulse Oximetry
SaO2: 100
Oxygen Mode of Delivery: Room air
Patient hypoxic: no (100%)
*Critical Care Note
Total Time (30-74mins, 75-104mins- exclusive of procedures): 35
<Conchis Herron PA-C - Last Filed: 01/28/25 21:36>
Update Note
Update Note:
Hemoglobin 10.2, down from 12.6 yesterday. Platelets within normal limits at 276. I was called urgently to bedside by nursing staff for reassessment. Patient on the commode and appears very pale. He reportedly had a syncopal episode and became
bradycardic to the 40s. A large amount of maroon blood noted in commode. STAT transfusion for 1 unit PRBCs ordered, verbal consent obtained from patient. CTA negative for acute source of bleeding. GI notified and patient admitted for further
management.
ED Attending Note
<Conchis Herron PA-C - Last Filed: 01/28/25 21:36>
-
Portions of this chart may have been created with voice recognition software.� Occasional wrong word or��sound alike� substitutions may have occurred due to the inherent limitations of voice recognition software.
<Harry Huang MD - Last Filed: 01/28/25 18:15>
ED Attending Note
Patient seen and examined by attending physician: Yes
ED Attending Note:
Patient with history of ITP and previous history of GI bleed requiring blood transfusion, presents to ED secondary to multiple episodes of bloody bowel movements since this morning. Patient does report lower abdominal discomfort with bowel
movement. Denies fever or chills. Denied nausea or vomiting. Denies trauma. Patient does not take any blood thinning medications. Denies dizziness. Denies weakness. Denies shortness of breath. Denies recent change in medications or diet.
Denies recent illness.
Physical Exam
General: mild distress, not acutely ill. afebrile
Head: nc/at. eomi
Neck: supple. no meningeal signs.
Heart: s1/s2 regular rate and rhythm
Lungs: no acute respiratory distress. clear bilaterally
Abdomen: normal bowel sounds. not tender.
Neuro: alert and oriented x 3. no focal neurological deficits
Skin: no rash
Psychiatric: well kept. interactive and cooperative
Extremities: no edema. no calf tenderness.
Due to multiple episodes of bloody bowel movements in ED, decision made to obtain CT angiogram abdomen pelvis, to evaluate for potential active GI bleed, requiring potential IR embolization.
Patient ordered 1 unit of PRBC, along with IV fluids. Blood transfusion consent on the chart.
Patient will be admitted to ICU for further evaluation and treatment. Patient started on Protonix infusion. GI physician notified via Shock text.
Discharge Plan
Departure
Patient Disposition: Admit
Date of Disposition: 01/28/25
Time of Disposition: 16:32
Presentation/result/management discussed w/ accepting MD/DO: Hospitalist
Discharge Problem:
GI bleed, Acute blood loss anemia
Interventions
Interventions:
*Risk Screen - Suicide Last Done: 01/28/25 14:29
*General Assessment Last Done: 01/28/25 15:22
*Neglect/Abuse Screening Last Done: 01/28/25 14:29
*ED- Fall Risk Assessment Last Done: 01/28/25 15:22
*ED COVID-19 Vaccine History Last Done: 01/28/25 15:22
*Nursing Disposition Last Done: 01/28/25 20:50
KZ-[id number]-Htpzthakwh Assessment Last Done: 01/28/25 19:52
ED- Cardiac Assessment Last Done: 01/28/25 15:22
ED- Pulmonary Assessment Last Done: 01/28/25 15:22
Discharge Date and Time
Discharge Date/Time: 01/28/25 20:50
[2025-01-28 15:29] LABS: Hematocrit 31.8 % (39.0-52.0); Hemoglobin 10.2 g/dL (13.0-18.0); Mean Corp Hgb Conc. 32.1 g/dL (33.0-37.0); Mean Corpuscular Volume 89.8 fL (80.0-94.0); Platelet Count 276 10^3/uL (130-400); Red Cell Dist. Width 15.9 % (11.5-14.5)
[2025-01-28 15:33] LABS: ALT (SGPT) 18 U/L (0-50); AST (SGOT) 22 U/L (17-59); Albumin 3.1 g/dl (3.5-5.0); Alkaline Phosphatase 89 U/L (38-126); Blood Urea Nitrogen 31 mg/dl (9-20); Calcium 7.9 mg/dl (8.4-10.2); Carbon Dioxide 23 mmol/L (22-30); Chloride 109 mmol/L (98-107); Glucose 149 mg/dl (70-99); Potassium 4.6 mmol/L (3.5-5.1); Sodium 136 mmol/L (135-145); Total Protein 5.1 g/dl (6.3-8.2); eGFR > 60.00
[2025-01-28 15:34] LABS: INR 1.04; PT 14.1 Sec (11.4-14.6)
[2025-01-28 15:35] LABS: APTT 40.8 Sec (23.4-35.0)
[2025-01-28 16:00] LABS: Nucleated Red Blood Cells % 0 % (-)
--- NOTE | 2025-01-28 16:51 | HPS.HSE ---
Addendum entered and electronically signed by Monisha Stokes MD 01/28/25 18:07:
This is an addendum to H&P written by Shanita Coppola on 01/28/2025. �Patient seen and examined independently with RN PLACEMENT.
69-year-old male past medical history of ITP, PAD, diverticulitis/diverticulosis, internal hemorrhoids, GERD, small bowel obstruction s/p resection, BPH, rheumatoid arthritis, hypothyroidism, prior Lyme's disease, presenting with dark maroon-colored
clots from rectum associated lightheadedness and hypotension 94/63.
He was being worked up by GI for chronic abdominal distention and gassiness, and dietary changes were recommended.
He had colonoscopy/EGD in July which showed significant diverticulosis, internal hemorrhoids and normal EGD.
Vital signs show blood pressure in the 90s.
Labs show leukocytosis 23�which is chronically elevated. �Hemoglobin 10.2 from 12.6 yesterday. �CTA abdomen pelvis shows no active GI bleeding although there is 2.6 cm soft tissue opacity within the central mesentery which appears to cause tethering
of adjacent small bowel loops concerning for carcinoid tumor versus sclerosing mesenteritis. �Incidental tree-in-bud opacities in right middle lobe.
Patient with rectal bleeding likely diverticular versus upper GI bleeding from chronic steroids.
Protonix 40 IV twice daily. �Clear liquid diet. �1�unit of blood transfusion. �GI consulted.
Outpatient follow up for tree in bud opacities.
Original Note:
Family Physician
-
Family Physician: NOT KNOW UNKNOWN - PT DOES
Chief Complaint
-
Dark red rectal bleeding with clots x 4 episodes, weakness
History of Present Illness
69-year-old male complaining of dark red rectal bleeding starting around 930 this morning with large amount of blood clots dark maroon in color x 4 episodes since then. He reports feeling weak. He has history of ITP receives weekly Nplate
injections and is on chronic prednisone. He follows with Dr. Marte from hematology. He reports last colonoscopy July 2024 showing multiple largemouth and small mouth diverticula throughout the entire colon with internal hemorrhoids. He had
drop in hemoglobin from 12.6 yesterday to today 10.2. Patient denies headache, fever, chills, chest pain, palpitations, cough, shortness of breath, abdominal pain, nausea, vomiting, diarrhea, urinary symptoms.
The patient has past medical history of ITP on Nplate and chronic steroids, PAD, diverticulitis/diverticulosis, multiple diverticula, internal hemorrhoids, GERD, lower GI bleed past year requiring blood transfusion, small bowel obstruction status
post resection 08/13/2022, BPH, rheumatoid arthritis/chronic steroids, chronic pain on chronic oral opiates, hypothyroidism, prior history of Lyme's disease, iron deficiency, DJD left knee
Medical History
Past Medical History
Past Medical History: Reports Other
Additional Past Medical History:
ITP
PAD
Diverticulitis/diverticulosis
Multiple diverticula on [place] July 2024
internal hemorrhoids on [place] August 18
GERD
Lower GI bleed
Small bowel obstruction status post resection 08/13/2022
BPH
Rheumatoid arthritis
Hypothyroidism
prior history of Lyme's disease
DJD left knee scheduled for surgery April 26, 2025 [facility]
Past Surgical History: Reports Other
Additional Past Surgical History:
Hernia repair x 2
Spleenectomy 1986
Small bowel resection 08/13/2022
Social History
Tobacco: Non-smoker
Alcohol: None
Drug: None
Personal: Single
Living: Alone
Employment: Retired
Family History
Family History: Not pertinent
Allergies / Home Medications
Allergies reflects when Allergies were last updated in [facility].
Home Medications with original date entered in [facility]
Allergy/Medication List:
Allergies
Allergy/AdvReac Type Severity Reaction Status Date / Time
aspirin Allergy ITP Verified 09/28/24 10:22
NSAIDS (Non-Steroidal Allergy ITP Verified 09/28/24 10:22
Anti-Inflamma
Penicillins Allergy Rash Verified 09/28/24 10:22
Sulfa (Sulfonamide Allergy Rash Verified 09/28/24 10:22
Antibiotics)
Home Medications
levothyroxine 50 mcg tablet 50 mcg PO DAILY Thyroid 11/03/22
ascorbate calcium (vitamin C) 500 mg tablet 500 mg PO DAILY Supplement 11/08/22
prednisone 10 mg tablet 15 mg PO DAILY inflammation 11/08/22
therapeutic multivitamin 1 tab PO DAILY Supplement 11/08/22
pantoprazole 40 mg tablet,delayed release 40 mg PO DAILY Gastrointestinal Issue 12/18/23
oxycodone 5 mg tablet 5 mg PO QPM 09/24/24
romiplostim 250 mcg subcutaneous solution (Nplate) 250 mcg SC MO 09/24/24
calcium 600 mg (as carbonate)-vit D3 10 mcg (400 unit)-minerals tablet 1 tab PO DAILY 09/28/24
ferrous sulfate 325 mg (65 mg iron) tablet (Iron (ferrous sulfate)) 325 mg PO DAILY 09/28/24
atorvastatin 20 mg tablet (Lipitor) 20 mg PO QPM 01/28/25
oxycodone 5 mg tablet 5 mg PO BIDPRN PRN severe pain 01/28/25
Review of Systems
-
History Source: Patient
A 12 point ROS was completed and negative except as noted: Yes
Constitutional: Reports Fatigue; Denies Fever
EENT: Denies Sore Throat or Runny Nose
Respiratory: Denies Cough or Trouble Breathing
Cardiac: Denies Chest Pain, Diaphoresis, Palpitations or Syncope
Abdomen/GI: Reports Bloody Stools (Dark maroon x 4); Denies Abdominal Pain, Nausea, Vomiting, Diarrhea, Constipated or Black Stools
: Denies Dysuria, Frequency, Flank Pain, Incontinence or Difficulty Voiding
Musculoskeletal: Denies Joint Pain or Edema
Skin: Denies Itching or Rash
Neurological: Reports Dizzy; Denies Headache or Weakness
Endocrine: Reports No Symptoms
Hematologic/Lymphatic: Reports No Symptoms
Psych: Reports Calm
Physical Exam
Vital Signs
Vital Signs
Temp Pulse Resp BP Pulse Ox
98.2 F 70 14 98/59 100
01/28/25 16:45 01/28/25 16:45 01/28/25 16:45 01/28/25 16:45 01/28/25 16:45
Physical Exam
General: Comfortable and Conversant; No Pain, Fever, Chills or Slurred Speech
HEENT: NormoCephalic, Anicteric, Moist mucous membranes, PERRLA, [place] Conjunctivae and No Ptosis
Respiratory: Clear; No Wheezes, Rales or Rhonchi
Cardiac: S1/S2 and Regular Rhythm; No Murmur, Rub or Gallop
Breast: Deferred by me
GI: Soft, Non Tender, Non Distended and Normal Bowel Sounds
Genito-urinary: Deferred by me
Musculoskeletal: No Clubbing, No Cyanosis, Edema, Left Lower Extremity (Chronic trace to +1 patient with teds and Bar wrap's to bilateral legs) and Edema, Right Lower Extremity (Chronic trace to +1 patient with teds and Bar wrap's to bilateral
legs); No Edema, Left Upper Extremity or Edema, Right Upper Extremity
Skin: Warm and Dry; No Rash
Neuro: AO x 3, No Motor Deficits, Nonfocal/grossly intact, Cranial Nerves Intact and No Sensory Deficits; No Slurred Speech, Facial Droop, Tremors or Sedated
Psych: Calm
Laboratory Results
-
01/28/25 15:06
01/28/25 15:06
Laboratory Results
PT 14.1 Sec (11.4-14.6) 01/28/25 15:06
INR 1.04 01/28/25 15:06
APTT 40.8 Sec (23.4-35.0) H 01/28/25 15:06
Total Bilirubin 0.3 mg/dl (0.2-1.3) 01/28/25 15:06
AST 22 U/L (17-59) 01/28/25 15:06
ALT 18 U/L (0-50) 01/28/25 15:06
Alkaline Phosphatase 89 U/L (38-126) 01/28/25 15:06
Impression/Plan
-
Impression/plan:
Admit to IMU
#Acute GI bleed concern diverticular/Hx multiple diverticula on [place] July 2024
# NEW 2.6 soft tissue opacity central mesentery
# HX Lower GI bleed 1 year ago requiring blood transfusion
#History ITP-PLT 276-patient receives Nplate 250 mcg subcu Mondays weekly injections and is also on chronic prednisone follows with Dr. Marte
#History Splenectomy 1986
Hgb 12.6 on 01/27/2025 yesterday> current Hgb 10.2
-Type and screen
-Transfuse 1 unit PRBC due to hypotension 94/63
-IV Protonix 40 mg daiy , pt was given protonix 80mg in er
- Consult GI
CTA:2.6 cm soft tissue opacity within the central mesentery which appears to cause tethering of adjacent small bowel loops is concerning for
carcinoid tumor although sclerosing mesenteritis is possible.
Colonoscopy July 2024 showing multiple largemouth and small mouth diverticula throughout the entire colon with internal hemorrhoids
Endoscopy July 2024: Normal esophagus, mild gastritis biopsied, normal duodenum
#Acute hypotension secondary to likely blood loss anemia
BP 94/63
-Patient to receive 1 unit of PRBCs will monitor PRBC
#Incidental tree-in-bud opacity right middle lobe
Recommend outpatient follow-up and CT chest
#GERD
#Diverticulitis/diverticulosis
#Multiple diverticula on [place] July 2024,internal hemorrhoids on [place] August 18
- Continue IV Protonix 40 mg daily
#Acute on chronic leukocytosis likely secondary to prednisone use
WBC 23.8 > 17.1
-Will follow
#Rheumatoid arthritis steroid-dependent
-Patient on oxycodone 5 mg every afternoon and oxycodone 5 mg twice daily severe pain
- Continue prednisone 15 mg daily
#Chronic pain on chronic oral opiates due to left knee DJD
-Continue oxycodone 5 mg every afternoon, oxycodone 5 mg twice daily as needed
#PAD with chronic peripheral edema
-Chronic trace to +1 patient with teds and Bar wrap's to bilateral legs
#Iron deficiency
Hold current oral iron
#Small bowel obstruction status post resection 08/13/2022
# BPH
No recorded meds
#Hypothyroidism
-Continue levothyroxine 50 mcg p.o. daily
#HLD
Hold Lipitor 20 mg every afternoon
#Prior history of Lyme's disease
DVT prophylaxis
SCDs
Full code
[2025-01-28] MEDS: PROTONIX IV 80 MG IV (17:15)
[2025-01-28] MEDS: PROTONIX 100 IV (17:15)
[2025-01-28] MEDS: NSS 1000 IV (17:15)
[2025-01-28] MEDS: ROXICODONE 5 MG PO (19:12)
--- NOTE | 2025-01-28 19:31 | W.PN.UPDATE ---
Update Note
Progress Note Update
GI bleed likely diverticular addendum
Patient with episode of bloody stool in bed/diaphoresis/near syncope at 1925
-Given persistent bleeding history of ITP will give additional 1 unit PRBC
Upgrade to ICU
- Monitor further bowel movements may require additional CT angio
[2025-01-28 21:09] LABS: Glucose - Point of Care 166 mg/dl (70-99)
[2025-01-28 21:31] LABS: Magnesium 2.0 mg/dl (1.6-2.3)
--- NOTE | 2025-01-28 22:30 | PTCARENOTE ---
Pt received from ED ~2100. PRBC infusing. Pt with small amount red/burgundy stool. Pt AAOx3. RA, POX 97%. Lungs clear b/l. Scattered bruises noted b/l upper and lower extremities. HR SR w/ pro QT on telemetry.
[2025-01-29] VITALS (18 sets, daily range): BP systolic 112–158; BP diastolic 50–80; PULSE 83–90; BMI 22.9
[2025-01-29] MEDS: MELATONIN 5 MG PO (00:22)
--- NOTE | 2025-01-29 01:20 | PTCARENOTE ---
Pt reports being comfortable in bed. No further bloody BMs. VSS. Hygiene provided. No further change in assessment.
[2025-01-29 01:25] LABS: Hematocrit 25.4 % (39.0-52.0); Hemoglobin 8.5 g/dL (13.0-18.0)
[2025-01-29 04:52] LABS: Hematocrit 25.7 % (39.0-52.0); Hemoglobin 8.4 g/dL (13.0-18.0); Mean Corp Hgb Conc. 32.7 g/dL (33.0-37.0); Mean Corpuscular Volume 87.7 fL (80.0-94.0); Nucleated Red Blood Cells % 0 % (-); Platelet Count 142 10^3/uL (130-400); Red Cell Dist. Width 15.9 % (11.5-14.5)
[2025-01-29 04:58] LABS: ALT (SGPT) 13 U/L (0-50); AST (SGOT) 16 U/L (17-59); Albumin 2.0 g/dl (3.5-5.0); Alkaline Phosphatase 63 U/L (38-126); Blood Urea Nitrogen 29 mg/dl (9-20); Calcium 6.8 mg/dl (8.4-10.2); Carbon Dioxide 22 mmol/L (22-30); Chloride 116 mmol/L (98-107); Estimated Creatinine Clearance 122 ml/min; Glucose 77 mg/dl (70-99); Potassium 3.7 mmol/L (3.5-5.1); Sodium 139 mmol/L (135-145); Total Protein 3.8 g/dl (6.3-8.2); eGFR > 60.00
[2025-01-29] MEDS: CALCIUM GLUCONATE 130 MG IV (05:55)
[2025-01-29] MEDS: SYNTHROID 50 MCG PO (05:55)
--- NOTE | 2025-01-29 06:23 | PTCARENOTE ---
Small bloody smear when turned. Pt reports occasional flatulence but does not feel like he has to have BMs like he did day prior. Denies N/V. Denies any dizziness/lightheadedness. AM labs drawn and sent - Calcium low. Ca rider ordered and
administered.
[2025-01-29] MEDS: DELTASONE 15 MG PO (07:18)
--- NOTE | 2025-01-29 07:22 | W.PN.UPDATE ---
Addendum entered and electronically signed by Will Mera MD 01/29/25 12:59:
Unexpected rapid recovery.
Total time spent on d/c = 45 min. This included today's physical exam, progress note, review of laboratory and diagnostic data, preparation of discharge documents and prescriptions, and discussions about the pt's hospital course and discharge plan
with the patient and other bacteriologist medical involved in the patient's care.
Original Note:
Update Note
Progress Note Update
I saw and evaluated the patient. I reviewed the resident�s note and agree with findings and plan as documented in the resident�s note.
Denies chest pain, shortness of breath, abdominal pain.
Gen: NAD, AAOx3.
Eyes: EOMI, PERRLA, no scleral icterus.
Neck: supple.
CV: RRR, +S1/S2, no m/r/g.
Resp: CTAB, no rales, wheezes, or rhonchi.
Abd: +BS, soft, NT, ND
Skin: No rashes.
Neuro: CN 2-12 intact, non-focal.
Psych: Normal mood and affect.
CTA A/P: 2.6cm soft tissue opacity within the central mesentery which appears to cause tethering of adjacent small bowel loops is concerning for carcinoid tumor although sclerosing mesenteritis is possible.
Colonoscopy July 2024 showing multiple largemouth and small mouth diverticula throughout the entire colon with internal hemorrhoids
EGD July 2024: Normal esophagus, mild gastritis biopsied, normal duodenum
Acute blood loss anemia and acute hypotension due to acute GI bleeding:
-suspect LGIB
-new 2.6cm soft tissue opacity within the central mesentery
-s/p 2U pRBCs with hypotension on admission
-trend Hb, currently 8.4
-currently on clears
-cont PPI daily
-c/s GI
Other problems:
h/o ITP: Cont Nplate/Prednisone
h/o splenectomy
Incidental tree-in-bud opacity RML: outpt f/u and CT chest
GERD: cont PPI
Chronic leukocytosis, likely steroid induced
RA: Cont Prednisone/Oxycodone (chronic opioid use with dependence)
Left knee DJD
PAD
Chronic peripheral edema
Iron deficiency
Hold current oral iron
h/o SBO s/p resection 08/13/2022
BPH
Hypothyroidism: cont Levoxyl
HLD: resume statin
FULL/SCDs
--- NOTE | 2025-01-29 07:35 | CON.INTV ---
Consultation
Consultation Request
Date/Time Consultation Requested: 01/29/2025-7:30 AM
Date/Time Consultation Performed: 01/29/2025-7:30 AM
Requesting Provider: hospitalist
Performing Provider: Dr. Bryant
Reason for Consultation: GI bleed/critical care management
Medical History
-
Chief Complaint: GI bleed
History of Present Illness:
69-year-old non-smoking male with a history of ITP, PAD, GERD, small bowel resection 07/2022, rheumatoid arthritis, diverticulosis and internal hemorrhoids who presented with large amount of dark clots and dark maroon bowel movements x 4 with
hypotension and patient coordinator front desk consulted for GI bleed/critical care management 01/29/2025. Patient feels improved after transfusion. Blood pressures improved. He said no more bowel movements. He denies any shortness of breath, chest pain, chest
tightness, chest congestion, productive cough, pleurisy, abdominal pain, nausea, vomiting, lower extremity swelling or focal weakness
Past Medical History
Past Medical History: None (ITP. PAD. Diverticulosis. Internal hemorrhoids. GERD. Lower GI bleed. Small bowel obstruction/resection 07/2022. BPH. Rheumatoid Tritus. Hypothyroid. Lyme disease. Hernia repair. Splenectomy 1986. Small bowel
resection in 2022.)
Social History
Tobacco: Non-smoker
Alcohol: None
Drug: None
Personal: Single
Living: With Family
Occupational Exposures: No known asbestos exposure
Environmental Exposures: No known tuberculosis exposure
Family History
Family History: Reviewed & Not Pertinent
Allergies / Home Medications
Allergies
Allergy/AdvReac Type Severity Reaction Status Date / Time
aspirin Allergy ITP Verified 09/28/24 10:22
NSAIDS (Non-Steroidal Allergy ITP Verified 09/28/24 10:22
Anti-Inflamma
Penicillins Allergy Rash Verified 09/28/24 10:22
Sulfa (Sulfonamide Allergy Rash Verified 09/28/24 10:22
Antibiotics)
Home Medications
�Medication �Instructions �Recorded �Confirmed �Last Taken �Type
levothyroxine 50 mcg tablet 50 mcg PO DAILY Thyroid 11/03/22 01/28/25 01/27/25 History
ascorbate calcium (vitamin C) 500 500 mg PO DAILY Supplement 11/08/22 01/28/25 01/27/25 History
mg tablet
prednisone 10 mg tablet 15 mg PO DAILY inflammation 11/08/22 01/28/25 01/28/25 History
20 mg
therapeutic multivitamin 1 tab PO DAILY Supplement 11/08/22 01/28/25 01/27/25 History
pantoprazole 40 mg tablet,delayed 40 mg PO DAILY Gastrointestinal 12/18/23 01/28/25 01/27/25 History
release Issue
oxycodone 5 mg tablet 5 mg PO QPM 09/24/24 01/28/25 01/27/25 History
romiplostim 250 mcg subcutaneous 250 mcg SC MO 09/24/24 01/28/25 01/27/25 History
solution (Nplate)
calcium 600 mg (as carbonate)-vit 1 tab PO DAILY 09/28/24 01/28/25 01/27/25 History
D3 10 mcg (400 unit)-minerals
tablet
ferrous sulfate 325 mg (65 mg 325 mg PO DAILY 09/28/24 01/28/25 01/27/25 History
iron) tablet (Iron (ferrous
sulfate))
atorvastatin 20 mg tablet (Lipitor) 20 mg PO QPM 01/28/25 01/28/25 01/27/25 History
oxycodone 5 mg tablet 5 mg PO BIDPRN PRN severe pain 01/28/25 01/28/25 Unknown History
Review of Systems
-
Unable to Obtain full review of systems at this time due to: Other (Per HPI)
Vitals / Labs / Diagnostic Testing
Vital Signs
Temp Pulse Resp BP Pulse Ox
97.8 F 71 16 114/68 99
01/29/25 07:34 01/29/25 06:15 01/29/25 06:15 01/29/25 06:00 01/29/25 06:15
Lab Data
01/29/25 04:17
01/29/25 04:16
Laboratory Results
01/28/25
15:06
PT 14.1
INR 1.04
APTT 40.8 H
Diagnostic Testing:
Physical Exam
-
Exam:
Well-nourished and well-developed in no apparent distress
HEENT-atraumatic, normocephalic
Neck-supple, no JVD, no bruit
Heart-regular rate and rhythm-no murmurs, rubs or gallops
Chest-clear to auscultation, no wheezes, crackles
Back-no tenderness
Abdomen-soft, nontender, nondistended, no hepatosplenomegaly
Extremities-no cyanosis, clubbing, edema and good peripheral pulses
Integument-intact, no rashes, lesions or ecchymosis
Neurology-alert and oriented, nonfocal motor and sensory exam
Assessment
-
69-year-old non-smoking male with a history of ITP, PAD, GERD, small bowel resection 07/2022, rheumatoid arthritis, diverticulosis and internal hemorrhoids who presented with large amount of dark clots and dark maroon bowel movements x 4 with
hypotension and patient coordinator front desk consulted for GI bleed/critical care management 01/29/2025.
Acute GI bleed-suspect lower-diverticular
Hypotension due to acute blood loss
Anemia due to acute blood loss
New 2.6 cm soft tissue opacification central mesentery
Abnormal CT lofiy-zhus-le-bud right middle lobe
Leukocytosis
Mild hyperglycemia
Hypocalcemia
Conditions present prior to admission:
ITP-on chronic prednisone and Nplate-followed by Dr. Marte
PAD.
Diverticulosis.
Internal hemorrhoids.
GERD.
Lower GI bleed.
Small bowel obstruction/resection 07/2022.
BPH.
Rheumatoid arthritis.
Hypothyroid.
Lyme disease.
Chronic pain due to left knee DJD on chronic opiates
Hernia repair. Splenectomy 1986. Small bowel resection in 2022.
Plan
Patient will be admitted to medical intensive care with active bleeding, critically ill and in need of resuscitation
Supplemental oxygen as needed
Aspiration precautions
Incentive spirometry
Monitor hemoglobin
Transfuse packed red blood cells and FFP as needed
Monitor coagulopathy
GI evaluation
CT abdomen noted below-UO 2.6 cm soft tissue opacification central mesentery
Endoscopic or colonoscopy may be considered per gastroenterology
Continues on Synthroid as well as prednisone for ITP and rheumatoid arthritis-no signs of adrenal insufficiency
DVT prophylaxis-mechanical
GI prophylaxis-PPI
Aspiration precautions
Nutrition per per GI
Early mobilization
If no active bleeding and hemoglobin remained stable with patient hemodynamically stable then transfer out of ICU-patient coordinator front desk will sign off-call pulmonary if respiratory issues arise
Outpatient pulmonary follow-up with repeat CT chest in 6 months
Critical care statement: A total of 55 minutes of critical care time was provided for this patient today. This includes management of unstable vital signs, management of transfusions, evaluation of the patient at bedside, reviewing the patient's
pertinent medical records including radiographs, microbiology, laboratory evaluations, and discussion with primary team, consultants, pharmacy, nutrition, physical therapy, case management, charge nurse, critical care nursing, and respiratory
therapy.
Diagnostic data:
Chest x-ray 01/28/2025-NAD
CT abdomen and pelvis 02/24/2024-no acute pathology in the abdomen or pelvis, mild periaortic lymphadenopathy nonspecific
CT abdomen and pelvis 01/28/2025 no evidence for active bleeding, colonic diverticulosis, there is a 2.6 cm soft tissue opacification central mesentery which appears to cause tethering of adjacent small bowel loops concerning for carcinoid tumor
although sclerosing mesenteritis is possible, tree-in-bud opacification right middle lobe, largest nodular component is 2.6 cm, follow-up CT chest recommended
PET scan 04/17/2024 left para-aortic lymphadenopathy is not hypermetabolic, small focus of uptake proximal transverse colon SUV max 4.8 could represent benign or malignant polyp
Myocardial PET 06/09/2024-no significant ischemia or scar EF 62%
Data Reviewed
-
EKG: Report reviewed by me
Radiology: Report reviewed by me
CT Scan: Image personally visualized and interpreted and Report reviewed by me
Medical Tests (Nuc Med, Echo etc): Report reviewed by me
Labs: Labs reviewed by me
Old Records: Reviewed
Critical Care Time (in minutes): 55
--- NOTE | 2025-01-29 08:03 | CON.GI ---
Addendum entered and electronically signed by Brina Gamez DO 01/29/25 13:13:
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
hematochezia with baseline hemoglobin 11-12 had 2 units of blood on 01/28/2025 with repeat hemoglobin 8.5. Most recent hemoglobin without any further transfusions is 9.1. Normal platelet count. No iron studies done this admission but in June
they were normal. He has had a couple of episodes with painless rectal bleeding for which he was worked up outpatient and had endoscopy and colonoscopy in July 2024 that was relatively unrevealing. He did have diverticulosis.
While in the emergency room he did undergo a CT angio which was negative for active bleed.
Patient did have some imaging last year that showed some concerning lymph nodes which led to a PET scan where again showed left para-aortic lymphadenopathy but none were hypermetabolic. Cluster of nodes measuring 2.6 x 1.4 cm with a small focus of
increased uptake in the proximal transverse colon. He has severe colonic diverticulosis. Large rectus diastases where the small bowel loops extended anteriorly. IVC filter in place. Prior splenectomy.
Review of imaging here on 01/28/[address] angio that does not include oral contrast he had no evidence of an active bleed but there is a 2.6 x 2 cm soft tissue opacity within the central mesentery causing a mild tethering of the adjacent small
bowel loops.
Patient states 2 years ago he was at [facility] and required a laparoscopy because of a small bowel obstruction. He states he did not have a bowel resection. I do not have these records.
Overall:
# Hematochezia requiring transfusion
-- Negative CT angio
-- Etiology likely diverticular based on painless hematochezia with large volumes versus some pathology in the small bowel
-- Patient's bleeding has stopped. His hemoglobin has been stable
-- He is asymptomatic and normotensive
-- Will send home. Patient aware if he has further recurrent bleeding to call [address] himself to the hospital.
-- He has no significant GI symptoms. He has not lost any weight. He is on a PPI at home
-- Patient does follow with Dr. Marte which could be helpful for this questionable lesion
-- Plan for discharge from a bleeding perspective with outpatient follow-up with Dr. Marte and Dr. Geiger
-- We will give him an order for the MR enterography to be done outpatient to better characterize the small bowel
-- Potentially capsule as long as there is no narrowing or stricturing in the small bowel to look for source of bleeding
-- Obtain [place] records from his prior laparoscopy 2 years ago
Original Note:
Consultation
-
Date/Time Consultation Requested: 01/28/2025 17:37
Date/Time Consultation Performed: 01/29/2025 08:00
Requesting Provider: Shanita Coppola
Performing Provider: Brina Gamez
Medical History
Chief Complaint / HPI
Chief Complaint: Painless hematochezia
History of Present Illness:
Sami is a 69-year-old male with a past history of diverticulosis, GERD, rheumatoid arthritis, anemia, ITP (seen by Dr. Marte, on chronic prednisone and weekly Nplate injections), hyperlipidemia, peripheral artery disease, hypothyroidism who
presented with rectal bleeding. Patient reports passing a total of 4 dark red bloody bowel movements starting at around 10:30 AM on 01/28/2025 (2 at home, 2 after arrival to the ED). He reports subsequent weakness, nausea, but no dizziness or
syncope. He has been having bloating for several months now. He does not report any fevers, chills, weight loss, anorexia. Bowel movements have been normal, 1/day, soft, well-formed, easy and painless to pass leading up to this event. He reports
having similar episode of painless maroon-colored stool in October of this year, however resolved after an hour and he was asymptomatic so he did not go to the ED. He reports no upper GI symptoms or GERD like symptoms. Recent blood work done on
01/27/2025 showed platelets 429. Colonoscopy with Dr. Melchor on 08/20/2024 showed diverticulosis of the entire colon, internal hemorrhoids, tortuous colon, normal, terminal ileum. Last EGD also on 08/20/2024 showed normal esophagus, mild
gastritis, normal duodenum. Patient is not on any blood thinners. Reports no NSAID use, however has been on chronic prednisone for over 50 years for ITP/RA. Of note, patient has a remote history within the last 2 years ago (patient uncertain of
exact date) of ED at [facility] visit for severe abdominal pain requiring ex lap for small bowel obstruction due to 'twisting of the bowel', reportedly did not require bowel resection. At that time he also had a hernia repaired.
GI was consulted for painless hematochezia.
In the ED he was afebrile, not tachycardic, with soft pressures in the 90/60s. He had leukocytosis of 23.8 with left shift, hemoglobin of 10.2, however repeat after bloody bowel movements showed hemoglobin dropped to 8.5. Platelets on admission
were 276. He received 2 units of PRBCs and 1 L fluid bolus as well as 80 mg IV Protonix. He also received calcium gluconate for hypocalcemia. BUN was elevated to 31, however he seems to have been elevated in the past. CTA of abdomen/pelvis
revealed no active GI bleed, however there is a 2.6 cm soft tissue opacity within the central mesentery that appears to be causing tethering of adjacent small bowel loops, concerning for carcinoid tumor sclerosing mesenteritis is possible.
Currently patient is resting awake alert bed, responsive and cooperative with interview. He has no acute complaints at this time other than abdominal bloating. Per nursing he had 1 episode of small amount of blood smeared on pad overnight, but
large bloody bowel movements. He is hemodynamically stable at this time.
Past Medical History
Past Medical History: Other (See HPI)
Past Surgical History: Other (Hernia repair x 2, splenectomy 1986, small bowel resection 2022, arthroscopy left knee 2023)
Allergies / Home Medications
Allergy/AdvReac Type Severity Reaction Status Date / Time
aspirin Allergy ITP Verified 09/28/24 10:22
NSAIDS (Non-Steroidal Allergy ITP Verified 09/28/24 10:22
Anti-Inflamma
Penicillins Allergy Rash Verified 09/28/24 10:22
Sulfa (Sulfonamide Allergy Rash Verified 09/28/24 10:22
Antibiotics)
�Medication �Instructions �Recorded
levothyroxine 50 mcg tablet 50 mcg PO DAILY Thyroid 11/03/22
ascorbate calcium (vitamin C) 500 500 mg PO DAILY Supplement 11/08/22
mg tablet
prednisone 10 mg tablet 15 mg PO DAILY inflammation 11/08/22
therapeutic multivitamin 1 tab PO DAILY Supplement 11/08/22
pantoprazole 40 mg tablet,delayed 40 mg PO DAILY Gastrointestinal 12/18/23
release Issue
oxycodone 5 mg tablet 5 mg PO QPM 09/24/24
romiplostim 250 mcg subcutaneous 250 mcg SC MO 09/24/24
solution (Nplate)
calcium 600 mg (as carbonate)-vit 1 tab PO DAILY 09/28/24
D3 10 mcg (400 unit)-minerals
tablet
ferrous sulfate 325 mg (65 mg 325 mg PO DAILY 09/28/24
iron) tablet (Iron (ferrous
sulfate))
atorvastatin 20 mg tablet (Lipitor) 20 mg PO QPM 01/28/25
oxycodone 5 mg tablet 5 mg PO BIDPRN PRN severe pain 01/28/25
Review of Systems
-
History Source: Patient
All other systems: A 12 pt ROS was Negative except as stated above in HPI
Vital Signs
Temp Pulse Resp BP Pulse Ox
97.8 F 71 16 114/68 99
01/29/25 07:34 01/29/25 06:15 01/29/25 06:15 01/29/25 06:00 01/29/25 06:15
Physical Exam
Exam
General: Well Developed, Well Nourished, No Apparent Distress and Comfortable
HEENT: Normocephalic, Anicteric, Moist Mucous Membranes and Atraumatic
Respiratory: Clear and Non Labored Respirations; Negative Wheezes, Rales or Rhonchi
Cardiac: S1/S2 and Regular Rhythm; Negative Murmur or Rub
Breast: N/A
GI: Soft, Non Tender, Normal Bowel Sounds and Distended
Rectal: Deferred by Provider
Musculoskeletal: No Clubbing, No Cyanosis and No Edema
Skin: Warm and Dry
Neuro: AO x 3
Psych: Calm
Results
WBC 20.9 10^3/uL (4.8-10.8) H 01/29/25 04:17
Hgb 8.4 g/dL (13.0-18.0) L 01/29/25 04:17
Hct 25.7 % (39.0-52.0) L 01/29/25 04:17
MCV 87.7 fL (80.0-94.0) 01/29/25 04:17
Plt Count 142 10^3/uL (130-400) D 01/29/25 04:17
Absolute Neuts (auto) 16.3 10^3/uL (1.4-6.5) H 01/29/25 04:17
PT 14.1 Sec (11.4-14.6) 01/28/25 15:06
INR 1.04 01/28/25 15:06
APTT 40.8 Sec (23.4-35.0) H 01/28/25 15:06
Sodium 139 mmol/L (135-145) 01/29/25 04:16
Potassium 3.7 mmol/L (3.5-5.1) 01/29/25 04:16
Chloride 116 mmol/L (98-107) H 01/29/25 04:16
Carbon Dioxide 22 mmol/L (22-30) 01/29/25 04:16
BUN 29 mg/dl (9-20) H 01/29/25 04:16
Creatinine 0.6 mg/dL (0.7-1.3) L 01/29/25 04:16
Calcium 6.8 mg/dl (8.4-10.2) L* 01/29/25 04:16
Total Bilirubin 0.4 mg/dl (0.2-1.3) 01/29/25 04:16
AST 16 U/L (17-59) L 01/29/25 04:16
ALT 13 U/L (0-50) 01/29/25 04:16
Alkaline Phosphatase 63 U/L (38-126) 01/29/25 04:16
Diagnostic Image Results:
Prior GI Procedures:
EGD:
(08/20/2024)
Impression: - Normal esophagus.
- Mild Gastritis. Biopsied.
- Normal examined duodenum. Biopsied.
Recommendation: - Discharge patient to home.
- Resume previous diet.
- Await pathology results.
- Telephone GI office for pathology results in 2 weeks.
Colonoscopy:
(08/20/2024)
Impression: - Preparation of the colon was fair.
- The examined portion of the ileum was normal.
- Diverticulosis in the entire examined colon.
- Internal hemorrhoids.
- Tortuous colon.
- Biopsies were taken with a cold forceps from the
right colon and left colon for evaluation of
microscopic colitis.
Recommendation: - Discharge patient to home.
- Resume previous diet.
- Await pathology results.
- Repeat colonoscopy in 3 years for screening purposes.
Assessment / Plan
-
Sami is a 69-year-old male with a past history of diverticulosis, GERD, rheumatoid arthritis, anemia, ITP (seen by Dr. Marte, on chronic prednisone and weekly Nplate injections), hyperlipidemia, peripheral artery disease, hypothyroidism who
presented with multiple episodes of dark red/brown-colored bowel movements, hypotension, weakness, dizziness, requiring blood transfusions/fluid resuscitation.
#Painless Hematochezia
#Acute Blood Loss Anemia
#H/o Diverticulosis
#ITP
#H/o Prior painless hematochezia, presumed secondary to ITP vs. Diverticulosis
Presentation of painless bloody bowel movements most consistent with diverticular bleed, especially given patient's colonoscopic findings of diffuse colonic diverticulosis. CT done in ED yesterday showed no active bleed. Currently, hematochezia
seems to have resolved except for small amounts of blood when wiping (which most likely represent internal hemorrhoidal bleeding), and patient is otherwise hemodynamically stable. Patient is not currently on any blood thinners or NSAIDs. There are
no symptoms or stigmata to suggest component of upper GI bleed.
Posttransfusion hemoglobin stable at 8.4. Will check again in afternoon. If stable or improved, suspect diverticular bleed which has resolved, in which case there would be no role for immediate endoscopic imaging.
Transfuse for hemoglobin<7 or platelets <20,000 or <50,000 if actively bleeding
Patient already on supplemental iron [employer], continue
Okay to continue with PPI for GI prophylaxis
Agree to continue with Nplate
Continue with IV fluids
C/w CLD pending decision on MRE
Rest of care per collection administrator and primary team
# 2.6 cm soft tissue opacity within the central mesentery
Incidental finding on CT abdomen pelvis. Patient reports a prior small bowel surgery without resection within 2 years, though exact details unknown, we do not have records of this. Unclear if CT findings could be the result of postsurgical
changes. However at this time would recommend MR enterography versus CT enterography for further evaluation of soft tissue opacity.
-
-
Thank you for consultation and allowing me to participate in the patient's care. Please call the field crop harvest contractor GI physician during the after hours with any questions or concerns.
[2025-01-29] MEDS: NSS (PRESERVATIVE FREE) 10 ML IV (08:22)
[2025-01-29] MEDS: PROTONIX IV 40 MG IV (08:22)
--- NOTE | 2025-01-29 08:49 | PTCARENOTE ---
report received, assessments per work list. alert and oriented, denies pain. monitor nsr, lungs cleare on room air. denies nausea. + abdominal distention, hyperactive bowel sounds. small smear red stool when care provided. tolerating clear liquids.
patient states he would like to be discharged this afternoon. reviewed plan of care. resident physicians in to meet with patient.call buckner in reach
--- NOTE | 2025-01-29 11:14 | CON.INTV ---
Documented by User: Jazmyne Avelar MD, Resident 01/29/25 11:34
Consultation
Consultation Request
Date/Time Consultation Requested: 20:56 01/28/25
Date/Time Consultation Performed: 7:00 01/29/25
Medical History
-
History of Present Illness:
69yoM PMH ITP, PAD, diverticulits, GERD, SBO, BPH, RA, hypothyroidism, diverticulitis presenting with painless, copious blood per rectum with associated lightheadedness.
This morning, pt reports resolved dizziness and no further bloody BM. He is encouraged he is feeling so well expressing that he wants to return home to take care of his 94y father.
Pt has history of diverticulitis and known diverticulosis. Takes chronic prednisone for ITP which has been stable. He has his plts checked weekly. Hx of SBO with ex lap performed at [facility] that reports was within the last 2 years. Currently
getting worked up by GI for bloating feeling. Denies weight loss, chills, night sweats, reduced appetite. He reports that he does not receive stress dose steroids in the hospital and has been stable at 15mg prednisone daily.
Allergies / Home Medications
Allergies
Allergy/AdvReac Type Severity Reaction Status Date / Time
aspirin Allergy ITP Verified 09/28/24 10:22
NSAIDS (Non-Steroidal Allergy ITP Verified 09/28/24 10:22
Anti-Inflamma
Penicillins Allergy Rash Verified 09/28/24 10:22
Sulfa (Sulfonamide Allergy Rash Verified 09/28/24 10:22
Antibiotics)
Home Medications
�Medication �Instructions �Recorded �Confirmed �Last Taken �Type
levothyroxine 50 mcg tablet 50 mcg PO DAILY Thyroid 11/03/22 01/28/25 01/27/25 History
ascorbate calcium (vitamin C) 500 500 mg PO DAILY Supplement 11/08/22 01/28/25 01/27/25 History
mg tablet
prednisone 10 mg tablet 15 mg PO DAILY inflammation 11/08/22 01/28/25 01/28/25 History
20 mg
therapeutic multivitamin 1 tab PO DAILY Supplement 11/08/22 01/28/25 01/27/25 History
pantoprazole 40 mg tablet,delayed 40 mg PO DAILY Gastrointestinal 12/18/23 01/28/25 01/27/25 History
release Issue
oxycodone 5 mg tablet 5 mg PO QPM 09/24/24 01/28/25 01/27/25 History
romiplostim 250 mcg subcutaneous 250 mcg SC MO 09/24/24 01/28/25 01/27/25 History
solution (Nplate)
calcium 600 mg (as carbonate)-vit 1 tab PO DAILY 09/28/24 01/28/25 01/27/25 History
D3 10 mcg (400 unit)-minerals
tablet
ferrous sulfate 325 mg (65 mg 325 mg PO DAILY 09/28/24 01/28/25 01/27/25 History
iron) tablet (Iron (ferrous
sulfate))
atorvastatin 20 mg tablet (Lipitor) 20 mg PO QPM 01/28/25 01/28/25 01/27/25 History
oxycodone 5 mg tablet 5 mg PO BIDPRN PRN severe pain 01/28/25 01/28/25 Unknown History
Review of Systems
Vitals / Labs / Diagnostic Testing
Vital Signs
Temp Pulse Resp BP Pulse Ox
97.8 F 84 18 142/80 98
01/29/25 07:34 01/29/25 10:40 01/29/25 10:40 01/29/25 10:29 01/29/25 08:45
Lab Data
01/29/25 04:16
Laboratory Results
01/28/25
15:06
PT 14.1
INR 1.04
APTT 40.8 H
Diagnostic Testing:
Physical Exam
-
HEENT: Normocephalic, Anicteric and Moist Mucous Membranes
Cardiovascular: S1/S2 and Regular Rhythm
Respiratory: Clear and Non-Labored Respirations
GI: Soft, Distended and Non Tender
Neurology: Awake, AO x 3 and No Motor Deficits
Skin: Warm and Dry
Assessment
-
69yoM PMH ITP, PAD, diverticulitis, GERD, SBO, BPH, RA, hypothyroidism, diverticulitis presenting with painless blood per rectum with associated symptomatic hypotension. He received 2 units of blood and was found to have a soft tissue mass on his
small bowel on CTA in ED without evidence of ongoing acute hemorrhage.
Pt is hemodynamically stable with stabilizing Hgb. Pending GI recommendations for following soft tissue mass. Recheck Hgb in afternoon to reassess acuity need for ICU with resolving symptoms.
Plan:
Neuro:
Alert and oriented
Denies pain.
Monitor for mental status changes
Pulm:
Saturating well on room air.
RML opacity seen on CT. F/u outpt.
Cardio:
Hemodynamically stable. Resolved hypotension.
Continue home lipitor
Recheck Hgb. If stabilized, pt can be downgraded from acute ICU care
GI:
GI following.
No acute hemorrhage
Soft tissue mass noted on CT. MRI, can be performed outpt if no correlation to symptoms
Colonoscopy performed 07/2024
PPI in setting of acute bleed
:
Urinating appropriately
Monitor I and O
ID:
No infectious concern at this time
hold antibiotics
Endocrine:
Continue home dose 15mg prednisone for ITP and RA.
Continue home synthroid
No hx DM
Continue Nplate for ITP.
DVT prophylaxis: SCDs
Diet: Clears

Documented by User: Benton Brynat MD 01/29/25 11:57
Assessment
-
69yoM PMH ITP, PAD, diverticulitis, GERD, SBO, BPH, RA, hypothyroidism, diverticulitis presenting with painless blood per rectum with associated symptomatic hypotension. He received 2 units of blood and was found to have a soft tissue mass on his
small bowel on CTA in ED without evidence of ongoing acute hemorrhage.
Pt is hemodynamically stable with stabilizing Hgb. Pending GI recommendations for following soft tissue mass. Recheck Hgb in afternoon to reassess acuity need for ICU with resolving symptoms.
Plan:
Neuro:
Alert and oriented
Denies pain.
Monitor for mental status changes
Pulm:
Saturating well on room air.
RML opacity seen on CT. F/u outpt.
Cardio:
Hemodynamically stable. Resolved hypotension.
Continue home lipitor
Recheck Hgb. If stabilized, pt can be downgraded from acute ICU care
GI:
GI following.
No acute hemorrhage
Soft tissue mass noted on CT. MRI, can be performed outpt if no correlation to symptoms
Colonoscopy performed 07/2024
PPI in setting of acute bleed
:
Urinating appropriately
Monitor I and O
ID:
No infectious concern at this time
hold antibiotics
Endocrine:
Continue home dose 15mg prednisone for ITP and RA.
Continue home synthroid
No hx DM
Continue Nplate for ITP.
DVT prophylaxis: SCDs
Diet: Clears
I reviewed this patient's case independently and in conjunction with the resident. I personally performed the eisenberg components of the evaluation and management of this critically ill patient, including the history, physical exam, and medical
decision-making. I was present during the eisenberg portions of care, reviewed the resident's documentation, and participated in the ongoing management of this patient requiring critical care. Total time spent providing critical care services today was
55 minute. I confirm the medical necessity of these services. I agree with documented assessment and plan
Benton Bryant MD, FCCP, [facility]
--- NOTE | 2025-01-29 11:40 | PTCARENOTE ---
patient reassessed. labs sent. patient stood at bedside with PT and rolling walker. no orthostasis. requesting MD advance his diet. labs sent. TTT to GI resident updating him with patient concerns about additional testing today, diet advancement
[2025-01-29 11:41] LABS: Hematocrit 26.7 % (39.0-52.0); Hemoglobin 9.1 g/dL (13.0-18.0)
--- NOTE | 2025-01-29 12:05 | CM ---
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 They live in a 1 story home with no basement, 2 steps to enter. [employer]LECT[employer] patient was independent in ADL's and ambulation with the use of crutches or RW. He
usually does not need DME but is having a L knee replacement on 04/26/25 and is having pain. He also has a quad cane in the home. No in-home services. He does drive. Does have a HC-POA. No VA benefits. No psychiatric hospitalizations. PCP is
[facility] in [place]. Pharmacy is [facility] in [facility] in [place]. Discharge POC: Anticipate home with no needs.
--- NOTE | 2025-01-29 12:59 | W.DCSUMMARY ---
Discharge Summary
Discharge Data
Date of Admission: 01/28/25
Date of Discharge: 01/29/25
Total time spent discharging patient (in min): 35
-
Pending Results: No
Hospital Course
Primary:
Bloody stool, likely lower GI bleed
Secondary:
Immune thrombocytopenic purpura
History SBO s/p ex lap and inguinal hernia repair
Diverticulosis
Incidental tree-in-bud opacity
Rheumatoid arthritis
Peripheral artery disease
History iron deficiency anemia
69-year-old male complaining of dark red rectal bleeding starting around 930 this morning with large amount of blood clots dark maroon in color x 4 episodes since then. He reports feeling weak. He has history of ITP receives weekly Nplate
injections and is on chronic prednisone. He follows with Dr. Marte from hematology. He reports last colonoscopy July 2024 showing multiple large mouth and small mouth diverticula throughout the entire colon with internal hemorrhoids. He had
drop in hemoglobin from 12.6 yesterday to today 10.2. Patient denies headache, fever, chills, chest pain, palpitations, cough, shortness of breath, abdominal pain, nausea, vomiting, diarrhea, urinary symptoms.
The patient has past medical history of ITP on Nplate and chronic steroids, PAD, diverticulitis/diverticulosis, multiple diverticula, internal hemorrhoids, GERD, lower GI bleed past year requiring blood transfusion, small bowel obstruction status
post resection 08/13/2022, BPH, rheumatoid arthritis/chronic steroids, chronic pain on chronic oral opiates, hypothyroidism, prior history of Lyme's disease, iron deficiency, DJD left knee
#Acute GI bleed concern diverticular/Hx multiple diverticula on [place] July 2024
# NEW 2.6 soft tissue opacity central mesentery
# HX Lower GI bleed 1 year ago requiring blood transfusion
#History ITP-PLT 276-patient receives Nplate 250 mcg subcu Mondays weekly injections and is also on chronic prednisone follows with Dr. Marte
#History Splenectomy 1986
Hgb 12.6 on 01/27/2025 yesterday> current Hgb 10.2
-Type and screen
-Transfused 2 units PRBC due to hypotension and anemia
-IV Protonix 40 mg daiy , pt was given protonix 80mg in er
- Consult GI: Outpatient follow-up and outpatient MR enterography
CTA:2.6 cm soft tissue opacity within the central mesentery which appears to cause tethering of adjacent small bowel loops is concerning for
carcinoid tumor although sclerosing mesenteritis is possible.
Colonoscopy July 2024 showing multiple largemouth and small mouth diverticula throughout the entire colon with internal hemorrhoids
Endoscopy July 2024: Normal esophagus, mild gastritis biopsied, normal duodenum
#Acute hypotension secondary to likely blood loss anemia
BP 94/63
-Patient received 2 unit of PRBCs. monitored PRBC
#Incidental tree-in-bud opacity right middle lobe
Recommend outpatient follow-up and CT chest in 6 months
#Diverticulitis/diverticulosis
#Multiple diverticula on [place] July 2024,internal hemorrhoids on [place] August 18
- Continue IV Protonix 40 mg daily
#Acute on chronic leukocytosis likely secondary to prednisone use
WBC 23.8 > 17.1
- Monitored
#Rheumatoid arthritis steroid-dependent
-Patient on oxycodone 5 mg every afternoon and oxycodone 5 mg twice daily severe pain
- Continue prednisone 15 mg daily
#Chronic pain on chronic oral opiates due to left knee DJD
-Continue oxycodone 5 mg every afternoon, oxycodone 5 mg twice daily as needed
#PAD with chronic peripheral edema
-Chronic trace to +1 patient with teds and Bar wrap's to bilateral legs
#Iron deficiency
Held current oral iron
#Small bowel obstruction status post resection 08/13/2022
Patient also received an inguinal hernia repair at the same time. He is unclear if the SBO was due to inguinal hernia
At [facility]
# BPH
No recorded meds
#Hypothyroidism
-Continued levothyroxine 50 mcg p.o. daily
#HLD
Held Lipitor 20 mg every afternoon
Discharge Plan
-
Patient Disposition: Home (Routine Discharge)
Discharge Diagnosis/Procedures: GI bleed / Bloody stool
Condition: Good
Diet: Low Cholesterol
Activity: As tolerated
Driving Restrictions: As prior to admission
Blood Work: CBC and BMP in 1 week, script from PCP
Referrals:
Ruiz Geiger MD [Active, Gastroenterology] - in one week
Referral Note: Hospital discharge follow up for Lower GI Bleed requiring transfusion
Benton Bryant MD [Active, Pulmonary Medicine] - in three to four weeks
Referral Note: Abnormal CT chest
UNKNOWN - PT DOES,NOT KNOW [Family Provider]
Additional Discharge Medication Instructions: Please follow-up with miniature set constructor Dr. Geiger for an MR enterography.
Prescriptions:
Continued
levothyroxine 50 mcg Tablet
50 mcg PO DAILY
prednisone 10 mg Tablet
15 mg PO DAILY
therapeutic multivitamin Tablet
1 tab PO DAILY
ascorbate calcium (vitamin C) 500 mg Tablet
500 mg PO DAILY
pantoprazole 40 mg Tablet,Delayed Release (Dr/Ec)
40 mg PO DAILY
Nplate 250 mcg Recon Soln
250 mcg SC MO
oxycodone 5 mg tablet
5 mg PO QPM
ferrous sulfate [Iron (ferrous sulfate)] 325 mg (65 mg iron) Tablet
325 mg PO DAILY
calcium carbonate-vit D3-min 600 mg-10 mcg (400 unit) Tablet
1 tab PO DAILY
atorvastatin [Lipitor] 20 mg Tablet
20 mg PO QPM
oxycodone 5 mg Tablet
5 mg PO BIDPRN PRN (Reason: severe pain)
Discharge Orders:
Discharge Patient (As Directed); Ordered 01/29/25
Ordered By: Will Mera
Discharge Date and Time
Print Language: MACEDONIAN
--- NOTE | 2025-01-29 13:47 | CM ---
Patient has been medically cleared for discharge to home with no additional skilled services. Patient has arranged for transport home.
--- NOTE | 2025-01-29 15:07 | W.PN.HOSP.TC ---
Today's Communication/Plan
-
Patient's hemoglobin remained stable at 8.4-9.1 on 01/29/2025 after 2 units of packed red blood cells since admission.
Gastroenterology recommended outpatient follow-up with MR enterography. Patient was eager to return home to take care of his father and sleep better.
Assessment / Plan
Assessment / Plan
Impression
69-year-old male complaining of dark red rectal bleeding starting around 930 this morning with large amount of blood clots dark maroon in color x 4 episodes since then. He reports feeling weak. He has history of ITP receives weekly Nplate
injections and is on chronic prednisone. He follows with Dr. Marte from hematology. He reports last colonoscopy July 2024 showing multiple large mouth and small mouth diverticula throughout the entire colon with internal hemorrhoids. He had
drop in hemoglobin from 12.6 yesterday to today 10.2. Patient denies headache, fever, chills, chest pain, palpitations, cough, shortness of breath, abdominal pain, nausea, vomiting, diarrhea, urinary symptoms.
The patient has past medical history of ITP on Nplate and chronic steroids, PAD, diverticulitis/diverticulosis, multiple diverticula, internal hemorrhoids, GERD, lower GI bleed past year requiring blood transfusion, small bowel obstruction status
post resection 08/13/2022, BPH, rheumatoid arthritis/chronic steroids, chronic pain on chronic oral opiates, hypothyroidism, prior history of Lyme's disease, iron deficiency, DJD left knee.
Plan
#Acute GI bleed concern diverticular/Hx multiple diverticula on [place] July 2024
# NEW 2.6 soft tissue opacity central mesentery
# HX Lower GI bleed 1 year ago requiring blood transfusion
#History ITP-PLT 276-patient receives Nplate 250 mcg subcu Mondays weekly injections and is also on chronic prednisone follows with Dr. Marte
#History Splenectomy 1986
Hgb 12.6 on 01/27/2025 yesterday> current Hgb 10.2. Hemoglobin stable at 8.4-9.1 on 01/29/2025
-Type and screen
-Transfused 2 units PRBC due to hypotension and anemia
-IV Protonix 40 mg daiy , pt was given protonix 80mg in er
-GI consulted: Outpatient follow-up and outpatient MR enterography
CTA:2.6 cm soft tissue opacity within the central mesentery which appears to cause tethering of adjacent small bowel loops is concerning for
carcinoid tumor although sclerosing mesenteritis is possible.
Colonoscopy July 2024 showing multiple largemouth and small mouth diverticula throughout the entire colon with internal hemorrhoids
Endoscopy July 2024: Normal esophagus, mild gastritis biopsied, normal duodenum
#Acute hypotension secondary to likely blood loss anemia
BP 94/63
-Patient received 2 unit of PRBCs. monitored PRBC
#Incidental tree-in-bud opacity right middle lobe
Recommend outpatient follow-up and CT chest in 6 months
#Diverticulitis/diverticulosis
#Multiple diverticula on [place] July 2024,internal hemorrhoids on [place] August 18
- Continue IV Protonix 40 mg daily
#Acute on chronic leukocytosis likely secondary to prednisone use
WBC 23.8 > 17.1
- Monitored
#Rheumatoid arthritis steroid-dependent
-Patient on oxycodone 5 mg every afternoon and oxycodone 5 mg twice daily severe pain
- Continue prednisone 15 mg daily
#Chronic pain on chronic oral opiates due to left knee DJD
-Continue oxycodone 5 mg every afternoon, oxycodone 5 mg twice daily as needed
#PAD with chronic peripheral edema
-Chronic trace to +1 patient with teds and Bar wrap's to bilateral legs
#Iron deficiency
Held current oral iron
#Small bowel obstruction status post resection 08/13/2022
Patient also received an inguinal hernia repair at the same time. He is unclear if the SBO was due to inguinal hernia
At [facility]
# BPH
No recorded meds
#Hypothyroidism
-Continued levothyroxine 50 mcg p.o. daily
#HLD
Held Lipitor 20 mg every afternoon
#Prior history of Lyme's disease
DVT prophylaxis
SCDs
Full code
Anticipated Discharge: Today
Subjective/Interval History
-
Date of Service: January 29, 2025
No acute events overnight. Patient states he feels great. He states that his stools have returned to their normal color without the maroon nature of his bloody stools. (It is noted that nursing recorded his stools as bloody/burgundy). He stated
he had 4 dark red stools yesterday. He described it as he felt a sensation of liquid that came and was hard to keep continent.
Patient stated he took double his dose of prednisone for ITP (15 mg doubled to 30 mg) yesterday, and wanted to call his proof coins inspector to confirm the tapering. He is familiar with tapering prednisone, since he has done so multiple times since his
diagnosis as a child.
For his SBO in 2022, he received an exploratory laparotomy at [facility]. He states the surgeon also repaired his left inguinal hernia during the same or case. He is unsure whether the SBO is due to incarcerated bowel in the
hernia.
Objective Data
-
Labs:
Laboratory Results
01/29/25 01/29/25 01/29/25
04:16 04:17 11:35
WBC 20.9 H
Hgb 8.4 L 9.1 L
Hct 25.7 L 26.7 L
Plt Count 142 D
Sodium 139
Potassium 3.7
Chloride 116 H
Carbon Dioxide 22
BUN 29 H
Creatinine 0.6 L
Glucose 77
Calcium 6.8 L*
Total Bilirubin 0.4
AST 16 L
ALT 13
Alkaline Phosphatase 63
Vital Signs:
Vital Signs
Temp Pulse Resp BP Pulse Ox
98.2 F 97 19 143/76 98
01/29/25 11:45 01/29/25 13:07 01/29/25 13:07 01/29/25 13:07 01/29/25 12:00
I&O
01/28/25 01/29/25 01/30/25
06:59 06:59 06:59
Intake Total 1110 / 1110 1450 / 1450
Output Total 650 / 650 1000 / 1000
Balance 460 / 460 450 / 450
Review of Systems
-
History Source: Patient
Constitutional: Reports No Symptoms
EENT: Reports No Symptoms Reported
Respiratory: Reports No Symptoms
Cardiac: Reports No Symptoms
Abdomen/GI: Reports No Symptoms
Musculoskeletal: Reports No Symptoms
Skin: Reports No Symptoms
Neuro: Reports No Symptoms
Hematologic / Lymphatic: Reports No Symptoms
Physical Exam
-
General: Well Developed, Well Nourished, No Apparent Distress and Comfortable
HEENT: Normocephalic, Atraumatic, Moist Mucous Membranes, Nose Appears Normal and Ears Appear Normal
Respiratory: Clear to Auscultation
Cardiac: Regular Rhythm and S1/S2
GI: Soft, Nontender, Nondistended, Normal Bowel Sounds and No Hernias (Left inguinal hernia repair scar not visualized; possibly the repair was done through the ex lap excision, or it healed very well)
Musculoskeletal: No Clubbing, No Cyanosis and No Edema
Skin: Warm and Dry
Neuro: Awake, Alert, Oriented, Nonfocal/Grossly Intact and Central Nerve's Intact
Psych: Calm
Data Reviewed
-
Diagnostic Radiology: Report Reviewed by me
CT Scan: Report Reviewed by me
Labs: Labs Reviewed by me
== END 2025-01-29 13:50 | disposition home or self-care (01) | DRG 378 ==
LOC: ICU 18:12
PROVIDERS: Clinical Nurse Specialist Family Health; Physician Assistant; ADMITTING PHYSICIAN Hospitalist; ATTENDING PHYSICIAN Internal Medicine; CONSULT PHYSICIAN Internal Medicine; EMERGENCY PHYSICIAN Emergency Medicine; OTHER PHYSICIAN Internal Medicine Critical Care Medicine
PROC: 30233N1 Transfusion of Nonautologous Red Blood Cells into Peripheral Vein, Percutaneous Approach (ICD-10-PCS; 2025-01-28)
DX: K92.2 Gastrointestinal hemorrhage, unspecified (principal); D62 Acute posthemorrhagic anemia; D69.3 Immune thrombocytopenic purpura; M06.9 Rheumatoid arthritis, unspecified; I73.9 Peripheral vascular disease, unspecified; D50.9 Iron deficiency anemia, unspecified; Z79.52 Long term (current) use of systemic steroids; Z90.81 Acquired absence of spleen; I95.89 Other hypotension; D72.829 Elevated white blood cell count, unspecified; T38.0X5A Adverse effect of glucocorticoids and synthetic analogues, initial encounter; Z79.899 Other long term (current) drug therapy; G89.29 Other chronic pain; N40.0 Benign prostatic hyperplasia without lower urinary tract symptoms; E03.9 Hypothyroidism, unspecified; Z79.890 Hormone replacement therapy; E78.5 Hyperlipidemia, unspecified; Z86.2 Personal history of diseases of the blood and blood-forming organs and certain disorders involving the immune mechanism; K21.9 Gastro-esophageal reflux disease without esophagitis; Z79.891 Long term (current) use of opiate analgesic; Z88.0 Allergy status to penicillin; Z88.2 Allergy status to sulfonamides; Z88.6 Allergy status to analgesic agent; Z90.49 Acquired absence of other specified parts of digestive tract
CPT/HCPCS: 36415; 36430; 71045; 74174; 80053; 82962; 83735; 84100; 85014; 85018; 85025; 85610; 85730; 86850; 86900; 86901; 86920; 87070; 93005; 96361; 96374; 97163; 99291; P9016; Q9967

== ENCOUNTER → 2025-02-05 11:19 | Outpatient (REF) | payer MEDICARE, OTHER, SELFPAY ==
[2025-02-05 12:50] LABS: Hematocrit 26.2 % (39.0-52.0); Hemoglobin 8.2 g/dL (13.0-18.0); Mean Corp Hgb Conc. 31.3 g/dL (33.0-37.0); Mean Corpuscular Volume 93.2 fL (80.0-94.0); Nucleated Red Blood Cells % 2.7 % (-); Red Cell Dist. Width 17.2 % (11.5-14.5)
[2025-02-05 13:20] LABS: Platelet Count 7 10^3/uL (130-400)
== END ==
LOC: REG 11:19
PROVIDERS: ATTENDING PHYSICIAN Internal Medicine Hematology & Oncology; FAMILY PHYSICIAN Family Medicine; OTHER PHYSICIAN Family Medicine
DX: D69.3 Immune thrombocytopenic purpura (principal); M06.9 Rheumatoid arthritis, unspecified; R14.0 Abdominal distension (gaseous); R10.84 Generalized abdominal pain; R18.8 Other ascites; M19.90 Unspecified osteoarthritis, unspecified site
CPT/HCPCS: 36415; 85025

== ENCOUNTER → 2025-02-15 11:28 | Outpatient (REF) | payer MEDICARE, OTHER, SELFPAY ==
[2025-02-15 12:31] LABS: Hematocrit 32.0 % (39.0-52.0); Hemoglobin 9.8 g/dL (13.0-18.0); Mean Corp Hgb Conc. 30.6 g/dL (33.0-37.0); Mean Corpuscular Volume 93.0 fL (80.0-94.0); Nucleated Red Blood Cells % 0.3 % (-); Platelet Count 271 10^3/uL (130-400); Red Cell Dist. Width 16.6 % (11.5-14.5)
== END ==
LOC: REG 11:28
PROVIDERS: ATTENDING PHYSICIAN Internal Medicine Hematology & Oncology; FAMILY PHYSICIAN Family Medicine; REFERRING PHYSICIAN Family Medicine
DX: D69.3 Immune thrombocytopenic purpura (principal); M06.9 Rheumatoid arthritis, unspecified; R14.0 Abdominal distension (gaseous); R10.84 Generalized abdominal pain; R18.8 Other ascites; M19.90 Unspecified osteoarthritis, unspecified site
CPT/HCPCS: 36415; 85025

== ENCOUNTER → 2025-02-22 11:21 | Outpatient (REF) | payer MEDICARE, OTHER, SELFPAY ==
[2025-02-22 13:02] LABS: Hematocrit 33.8 % (39.0-52.0); Hemoglobin 10.6 g/dL (13.0-18.0); Mean Corp Hgb Conc. 31.4 g/dL (33.0-37.0); Mean Corpuscular Volume 92.1 fL (80.0-94.0); Nucleated Red Blood Cells % 0.3 % (-); Red Cell Dist. Width 15.8 % (11.5-14.5)
[2025-02-22 13:04] LABS: Platelet Count 147 10^3/uL (130-400)
== END ==
LOC: REG 11:21
PROVIDERS: ATTENDING PHYSICIAN Internal Medicine Hematology & Oncology; FAMILY PHYSICIAN Family Medicine
DX: D69.3 Immune thrombocytopenic purpura (principal); M06.9 Rheumatoid arthritis, unspecified; R14.0 Abdominal distension (gaseous); R10.84 Generalized abdominal pain; R18.8 Other ascites; M19.90 Unspecified osteoarthritis, unspecified site
CPT/HCPCS: 36415; 85025

== ENCOUNTER → 2025-03-01 11:50 | Outpatient (REF) | payer MEDICARE, OTHER, SELFPAY ==
[2025-03-01 13:11] LABS: Hematocrit 33.1 % (39.0-52.0); Hemoglobin 10.3 g/dL (13.0-18.0); Mean Corp Hgb Conc. 31.1 g/dL (33.0-37.0); Mean Corpuscular Volume 89.5 fL (80.0-94.0); Nucleated Red Blood Cells % 0.1 % (-); Red Cell Dist. Width 15.1 % (11.5-14.5)
[2025-03-01 15:45] LABS: Platelet Count 711 10^3/uL (130-400)
== END ==
LOC: REG 11:50
PROVIDERS: ATTENDING PHYSICIAN Internal Medicine Hematology & Oncology; FAMILY PHYSICIAN Family Medicine
DX: D69.3 Immune thrombocytopenic purpura (principal); M06.9 Rheumatoid arthritis, unspecified; R14.0 Abdominal distension (gaseous); R10.84 Generalized abdominal pain; R18.8 Other ascites; M19.90 Unspecified osteoarthritis, unspecified site
CPT/HCPCS: 36415; 85025

== ENCOUNTER → 2025-03-08 11:04 | Outpatient (REF) | payer MEDICARE, OTHER, SELFPAY ==
[2025-03-08 12:07] LABS: Hematocrit 37.2 % (39.0-52.0); Hemoglobin 11.3 g/dL (13.0-18.0); Mean Corp Hgb Conc. 30.4 g/dL (33.0-37.0); Mean Corpuscular Volume 90.7 fL (80.0-94.0); Nucleated Red Blood Cells % 0 % (-); Red Cell Dist. Width 14.9 % (11.5-14.5)
[2025-03-08 12:24] LABS: Platelet Count 735 10^3/uL (130-400)
== END ==
LOC: REG 11:04
PROVIDERS: ATTENDING PHYSICIAN Internal Medicine Hematology & Oncology; FAMILY PHYSICIAN Family Medicine; REFERRING PHYSICIAN Family Medicine
DX: D69.3 Immune thrombocytopenic purpura (principal); M06.9 Rheumatoid arthritis, unspecified; R14.0 Abdominal distension (gaseous); R10.84 Generalized abdominal pain; R18.8 Other ascites; M19.90 Unspecified osteoarthritis, unspecified site
CPT/HCPCS: 36415; 85025

== ENCOUNTER → 2025-03-15 10:39 | Outpatient (REF) | payer MEDICARE, OTHER, SELFPAY ==
[2025-03-15 11:48] LABS: Hematocrit 36.7 % (39.0-52.0); Hemoglobin 11.5 g/dL (13.0-18.0); Mean Corp Hgb Conc. 31.3 g/dL (33.0-37.0); Mean Corpuscular Volume 90.2 fL (80.0-94.0); Nucleated Red Blood Cells % 0 % (-); Platelet Count 339 10^3/uL (130-400); Red Cell Dist. Width 14.7 % (11.5-14.5)
== END ==
LOC: REG 10:39
PROVIDERS: ATTENDING PHYSICIAN Internal Medicine Hematology & Oncology; FAMILY PHYSICIAN Family Medicine; REFERRING PHYSICIAN Family Medicine
DX: D69.3 Immune thrombocytopenic purpura (principal); M06.9 Rheumatoid arthritis, unspecified; R14.0 Abdominal distension (gaseous); R10.84 Generalized abdominal pain; R18.8 Other ascites; M19.90 Unspecified osteoarthritis, unspecified site
CPT/HCPCS: 36415; 85025

== ENCOUNTER → 2025-03-22 11:07 | Outpatient (REF) | payer MEDICARE, OTHER, SELFPAY ==
[2025-03-22 12:17] LABS: Hematocrit 38.6 % (39.0-52.0); Hemoglobin 11.8 g/dL (13.0-18.0); Mean Corp Hgb Conc. 30.6 g/dL (33.0-37.0); Mean Corpuscular Volume 89.1 fL (80.0-94.0); Nucleated Red Blood Cells % 0 % (-); Red Cell Dist. Width 14.6 % (11.5-14.5)
[2025-03-22 13:27] LABS: Platelet Count 33 10^3/uL (130-400)
== END ==
LOC: REG 11:07
PROVIDERS: ATTENDING PHYSICIAN Internal Medicine Hematology & Oncology; FAMILY PHYSICIAN Family Medicine; OTHER PHYSICIAN Family Medicine; REFERRING PHYSICIAN Surgery
DX: K63.89 Other specified diseases of intestine (principal); D69.3 Immune thrombocytopenic purpura; M06.9 Rheumatoid arthritis, unspecified; R14.0 Abdominal distension (gaseous); R10.84 Generalized abdominal pain; R18.8 Other ascites; M19.90 Unspecified osteoarthritis, unspecified site
CPT/HCPCS: 36415; 82941; 84260; 85025; 86316

== ENCOUNTER → 2025-04-07 10:00 | Outpatient (REF) | payer MEDICARE, OTHER, SELFPAY | LOC: MRI 3T 10:00 | PROVIDERS: ATTENDING PHYSICIAN Internal Medicine Gastroenterology; FAMILY PHYSICIAN Family Medicine | DX: K63.89 Other specified diseases of intestine (principal); R93.89 Abnormal findings on diagnostic imaging of other specified body structures | CPT/HCPCS: 72197; 74183; A9585 ==

== ENCOUNTER → 2025-04-09 11:22 | Outpatient (REF) | payer MEDICARE, OTHER, SELFPAY ==
[2025-04-09 13:21] LABS: Hematocrit 39.0 % (39.0-52.0); Hemoglobin 12.2 g/dL (13.0-18.0); Mean Corp Hgb Conc. 31.3 g/dL (33.0-37.0); Mean Corpuscular Volume 88.6 fL (80.0-94.0); Nucleated Red Blood Cells % 0.1 % (-); Red Cell Dist. Width 14.8 % (11.5-14.5)
[2025-04-09 13:22] LABS: Platelet Count 87 10^3/uL (130-400)
== END ==
LOC: REG 11:22
PROVIDERS: ATTENDING PHYSICIAN Internal Medicine Hematology & Oncology; FAMILY PHYSICIAN Family Medicine; OTHER PHYSICIAN Orthopaedic Surgery
DX: D69.3 Immune thrombocytopenic purpura (principal); M06.9 Rheumatoid arthritis, unspecified; R14.0 Abdominal distension (gaseous); R10.84 Generalized abdominal pain; R18.8 Other ascites; M19.90 Unspecified osteoarthritis, unspecified site
CPT/HCPCS: 36415; 85025

== ENCOUNTER → 2025-04-16 12:10 | Outpatient (REF) | payer MEDICARE, OTHER, SELFPAY ==
[2025-04-16 12:54] LABS: Hematocrit 39.3 % (39.0-52.0); Hemoglobin 12.7 g/dL (13.0-18.0); Mean Corp Hgb Conc. 32.3 g/dL (33.0-37.0); Mean Corpuscular Volume 84.7 fL (80.0-94.0); Red Cell Dist. Width 14.6 % (11.5-14.5)
[2025-04-16 13:06] LABS: Nucleated Red Blood Cells % 1.4 % (-); Platelet Count 41 10^3/uL (130-400)
== END ==
LOC: REG 12:10
PROVIDERS: ATTENDING PHYSICIAN Internal Medicine Hematology & Oncology; FAMILY PHYSICIAN Family Medicine
DX: D69.3 Immune thrombocytopenic purpura (principal); M06.9 Rheumatoid arthritis, unspecified; R14.0 Abdominal distension (gaseous); R10.84 Generalized abdominal pain; R18.8 Other ascites; M19.90 Unspecified osteoarthritis, unspecified site
CPT/HCPCS: 36415; 85025

== ENCOUNTER → 2025-04-23 11:03 | Outpatient (REF) | payer MEDICARE, OTHER, SELFPAY ==
[2025-04-23 11:56] LABS: Hematocrit 40.5 % (39.0-52.0); Hemoglobin 12.8 g/dL (13.0-18.0); Mean Corp Hgb Conc. 31.6 g/dL (33.0-37.0); Mean Corpuscular Volume 88.2 fL (80.0-94.0); Nucleated Red Blood Cells % 1.4 % (-); Red Cell Dist. Width 17.0 % (11.5-14.5)
[2025-04-23 11:57] LABS: Platelet Count 284 10^3/uL (130-400)
== END ==
LOC: REG 11:03
PROVIDERS: ATTENDING PHYSICIAN Internal Medicine Hematology & Oncology; FAMILY PHYSICIAN Family Medicine; OTHER PHYSICIAN Family Medicine
DX: D69.3 Immune thrombocytopenic purpura (principal); M06.9 Rheumatoid arthritis, unspecified; R14.0 Abdominal distension (gaseous); R10.84 Generalized abdominal pain; R18.8 Other ascites; M19.90 Unspecified osteoarthritis, unspecified site
CPT/HCPCS: 36415; 85025

== ENCOUNTER → 2025-04-30 11:04 | Outpatient (REF) | payer MEDICARE, OTHER, SELFPAY ==
[2025-04-30 11:50] LABS: Urine Character Clear (Clear)
[2025-04-30 12:55] LABS: Hematocrit 40.3 % (39.0-52.0); Hemoglobin 12.5 g/dL (13.0-18.0); Mean Corp Hgb Conc. 31.0 g/dL (33.0-37.0); Mean Corpuscular Volume 91.2 fL (80.0-94.0); Nucleated Red Blood Cells % 0.2 % (-); Red Cell Dist. Width 17.7 % (11.5-14.5)
[2025-04-30 12:58] LABS: Platelet Count 770 10^3/uL (130-400)
[2025-04-30 13:29] LABS: Urine Squamous Cell 0-2 /LPF (Few)
[2025-04-30 13:30] LABS: Urine White Cell 0-2 /HPF (0-5)
== END ==
LOC: REG 11:04
PROVIDERS: ATTENDING PHYSICIAN Internal Medicine Hematology & Oncology; FAMILY PHYSICIAN Family Medicine
DX: D69.3 Immune thrombocytopenic purpura (principal); M06.9 Rheumatoid arthritis, unspecified; R14.0 Abdominal distension (gaseous); R10.84 Generalized abdominal pain; R18.8 Other ascites; M19.90 Unspecified osteoarthritis, unspecified site; Z76.89 Persons encountering health services in other specified circumstances
CPT/HCPCS: 36415; 81003; 81015; 85025

== ENCOUNTER → 2025-05-07 11:43 | Outpatient (REF) | payer MEDICARE, OTHER, SELFPAY ==
[2025-05-07 12:37] LABS: Hematocrit 41.0 % (39.0-52.0); Hemoglobin 13.0 g/dL (13.0-18.0); Mean Corp Hgb Conc. 31.7 g/dL (33.0-37.0); Mean Corpuscular Volume 86.9 fL (80.0-94.0); Platelet Count 720 10^3/uL (130-400); Red Cell Dist. Width 17.6 % (11.5-14.5)
[2025-05-07 13:47] LABS: Nucleated Red Blood Cells % 0.5 % (-)
== END ==
LOC: REG 11:43
PROVIDERS: ATTENDING PHYSICIAN Internal Medicine Hematology & Oncology; FAMILY PHYSICIAN Family Medicine
DX: D69.3 Immune thrombocytopenic purpura (principal); M06.9 Rheumatoid arthritis, unspecified; R14.0 Abdominal distension (gaseous); R10.84 Generalized abdominal pain; R18.8 Other ascites; M19.90 Unspecified osteoarthritis, unspecified site
CPT/HCPCS: 36415; 85025

== ENCOUNTER 2025-05-13 03:43 | Inpatient (IN) | payer MEDICARE, OTHER, SELFPAY ==
[2025-05-12 23:46] VITALS: BMI 23.0
[2025-05-12 23:47] VITALS: BP 130/81
[2025-05-13] VITALS (37 sets, daily range): BP systolic 80–130; BP diastolic 56–79; BMI 22.4
[2025-05-13 00:34] LABS: ALT (SGPT) 26 U/L (0-50); AST (SGOT) 27 U/L (17-59); Albumin 3.0 g/dl (3.5-5.0); Alkaline Phosphatase 84 U/L (38-126); Blood Urea Nitrogen 32 mg/dl (9-20); Calcium 7.9 mg/dl (8.4-10.2); Carbon Dioxide 24 mmol/L (22-30); Chloride 106 mmol/L (98-107); Estimated Creatinine Clearance 73 ml/min; Glucose 121 mg/dl (70-99); Hematocrit 32.8 % (39.0-52.0); Hemoglobin 10.3 g/dL (13.0-18.0); Mean Corp Hgb Conc. 31.4 g/dL (33.0-37.0); Mean Corpuscular Volume 87.7 fL (80.0-94.0); Platelet Count 228 10^3/uL (130-400); Potassium 3.9 mmol/L (3.5-5.1); Red Cell Dist. Width 17.3 % (11.5-14.5); Sodium 138 mmol/L (135-145); Total Protein 5.4 g/dl (6.3-8.2); eGFR > 60.00
--- NOTE | 2025-05-13 00:43 | EDRN ---
the pt had one episode of dark maroon blood per rectum now in a hospital bedpan. approx 100ml output. the ER JOSIE Jackson was notified of above. ER JOSIE Jackson came to the pts bedside to evaluate this pt immediately.
[2025-05-13] MEDS: NSS 500 IV ×2 (00:56→06:24)
--- NOTE | 2025-05-13 01:10 | ED.GENMED ---
History of Present Illness
<Fuad Rogel DO - Last Filed: 05/13/25 02:36>
General
Chief Complaint: Rectal Bleeding
Time Seen by Provider: 05/13/25 00:33
<Amaris Jackson PA-C - Last Filed: 05/13/25 04:05>
General
Source: patient
Exam Limitations: none
Nursing documentation reviewed up to this point in time: agreed with
History of Present Illness
History of Present Illness:
70-year-old male with a history of ITP on prednisone 15 mg daily, history of diverticulitis and diverticular bleed in the past presents for GI bleeding about 5 episodes that started at 4304:30 PM today. At first it was mixed with stool and dark red
blood. Subsequent episodes starting after 7 PM were strictly blood and moderate to large volume. He feels no discomfort, denies syncope or lightheadedness. The patient has had thrombocytopenia most recently couple of weeks ago which was treated
with IVIG and 12 point then an increase in his steroids and down trended to the 15 mg that he has been on. He said he had outpatient labs 5 days ago, his platelet count then was 720, it is currently 228, his hemoglobin 6 days ago was 13 and is now
10.3.
Patient has a large abdominal hernia which is nontender and reducible.
He is not anticoagulated
Past History
<Amaris Jackson PA-C - Last Filed: 05/13/25 04:05>
Past History
ED Past Medical History: HTN, Hypercholesterolemia and Other ( ITP)
Social History
Tobacco: Non-smoker
Alcohol: None
Review of Systems
<AGUILAR Ortiz Last Filed: 05/13/25 04:05>
Review of Systems
Allergies reviewed?: Yes
All Other Systems: Not applicable
Phy Exam
<AGUILAR Ortiz Last Filed: 05/13/25 04:05>
Physical Exam
Physical Exam:
GENERAL: Alert , in no apparent distress
EYE: pupils equal and reactive
NECK: Supple
ENT: o/p clr, mmm.
CARDIAC: Regular rate and rhythm .
LUNGS: Clear breath sounds bilaterally, no acute respiratory distress, no wheezes/rales/rhonchi
ABDOMEN: Soft, active rectal bleeding large ventral hernia reducible, nontender s, no r/g, no cvat, normal bowel sounds
NEUROLOGICAL: Alert and oriented, no focal neuro deficits
SKIN: Warm and dry, skin intact.
MUSCULOSKELETAL: No edema, well perfused. neg winsome's sign
PSYCH: Normal and appropriate interaction.
Course
<Fuad Rogel DO - Last Filed: 05/13/25 02:36>
Orders/Labs/Results
Orders:
Orders
05/12/25 23:51
Type And Crossmatch [Type+Screen] Urgent
Complete Blood Count/With Diff Urgent
Comprehensive Metabolic Panel Urgent
05/13/25 00:50
0.9% Sodium Chloride 500 ml [Nss] 500 ml IV BOLUS
05/13/25 00:53
CT Abd/pelvis Angio W/wo Iv Urgent
Comment:
Reason For Exam: gi bleed
05/13/25 01:23
PTT Urgent
Prothrombin Time Urgent
05/13/25 01:35
Ipratropium/Albuterol Sulfate [Duoneb] 3 ml INH R NOW STA
05/13/25 02:09
Hemoglobin Urgent
05/13/25 02:15
* Blood Bank Products Urgent
Blood Bank Products: *Packed RBC Leuko (PRBC's
Quantity: 2
Transfuse Today: Yes
Reason: Bleeding
05/13/25 03:01
Lactic Acid Urgent
05/13/25 03:26
Admit/Transfer Patient As Directed
Co-Sign Provider:
Level of Care: Inpatient admission
Assign to:: ICU
Physician / Group: Miquel
Diagnosis: LGIB
Reason for Hospitalization: LGIB
Expected length of stay greater than two midnights?: Yes
ELOS- Estimated Length of Stay in days: 3
I certify the patient meets the requirements for IP care: Yes
05/13/25 03:27
Code Status As Directed
Resuscitation Status: Full Code
PRN Pain Medication Management As Directed
May give lesser potent ordered pain med per pt: Yes
preference::
Protocol:: Medication orders for pain may be administered in a
manner that supports deferring to patient preference
when the pt is:
- Requesting an ordered lesser potent pain medication.
Least to most potent pain medications are defined
as: acetaminophen < NSAID < tramadol < opioids
(morphine, oxycodone, hydromorphone).
- Requesting a lesser dose of the same medication IF
ORDERED.
- Requesting a less intrusive route of administration
if both routes are prescribed by the provider (PO <
IV).
05/13/25 03:31
0.9% Sodium Chloride 500 ml [Nss] 500 ml IV BOLUS
Abnormal Lab Results
05/13/25 05/13/25 05/13/25
00:06 01:23 02:09
WBC 21.5 H 10^3/uL
(4.8-10.8)
RBC 3.74 L 10^6/uL
(4.70-6.10)
Hgb 10.3 L D g/dL 8.4 L g/dL
(13.0-18.0) (13.0-18.0)
Hct 32.8 L %
(39.0-52.0)
MCHC 31.4 L g/dL
(33.0-37.0)
RDW 17.3 H %
(11.5-14.5)
MPV 11.8 H fL
(7.4-10.4)
Abs Immat Gran (auto) 2.4 H 10^3/uL
(0-0.05)
Absolute Neuts (auto) 15.5 H 10^3/uL
(1.4-6.5)
Absolute Monos (auto) 2.2 H 10^3/uL
(0.1-0.6)
Immature Gran % 11.1 H %
(0-0.5)
Lymphocytes % 5.7 L %
(20.5-51.1)
Monocytes % 10.2 H %
(1.7-9.3)
PT 14.7 H Sec
(11.4-14.6)
APTT 43.5 H Sec
(23.4-35.0)
BUN 32 H mg/dl
(9-20)
Glucose 121 H mg/dl
(70-99)
Calcium 7.9 L mg/dl
(8.4-10.2)
Total Bilirubin < 0.1 L mg/dl
(0.2-1.3)
Total Protein 5.4 L g/dl
(6.3-8.2)
Albumin 3.0 L g/dl
(3.5-5.0)
Crossmatch IS Only See Detail
05/13/25 02:09
05/13/25 00:06
Vital Signs
Initial and Last Documented VS:
Initial Vital Signs
Temp Pulse Resp BP Pulse Ox
36.9 C 83 20 130/81 97
05/12/25 23:47 05/12/25 23:47 05/12/25 23:47 05/12/25 23:47 05/12/25 23:47
Last Documented Vital Signs
Temp Pulse Resp BP Pulse Ox
36.5 C 81 18 115/69 98
05/13/25 03:35 05/13/25 03:35 05/13/25 03:35 05/13/25 03:35 05/13/25 03:00
<Amaris Jackson PA-C - Last Filed: 05/13/25 04:05>
Orders/Labs/Results
Orders:
Orders
05/12/25 23:51
Type And Crossmatch [Type+Screen] Urgent
Complete Blood Count/With Diff Urgent
Comprehensive Metabolic Panel Urgent
05/13/25 00:50
0.9% Sodium Chloride 500 ml [Nss] 500 ml IV BOLUS
05/13/25 00:53
CT Abd/pelvis Angio W/wo Iv Urgent
Comment:
Reason For Exam: gi bleed
05/13/25 01:23
PTT Urgent
Prothrombin Time Urgent
05/13/25 01:35
Ipratropium/Albuterol Sulfate [Duoneb] 3 ml INH R NOW STA
05/13/25 02:09
Hemoglobin Urgent
05/13/25 02:15
* Blood Bank Products Urgent
Blood Bank Products: *Packed RBC Leuko (PRBC's
Quantity: 2
Transfuse Today: Yes
Reason: Bleeding
05/13/25 03:01
Lactic Acid Urgent
05/13/25 03:26
Admit/Transfer Patient As Directed
Co-Sign Provider:
Level of Care: Inpatient admission
Assign to:: ICU
Physician / Group: Miquel
Diagnosis: LGIB
Reason for Hospitalization: LGIB
Expected length of stay greater than two midnights?: Yes
ELOS- Estimated Length of Stay in days: 3
I certify the patient meets the requirements for IP care: Yes
05/13/25 03:27
Code Status As Directed
Resuscitation Status: Full Code
PRN Pain Medication Management As Directed
May give lesser potent ordered pain med per pt: Yes
preference::
Protocol:: Medication orders for pain may be administered in a
manner that supports deferring to patient preference
when the pt is:
- Requesting an ordered lesser potent pain medication.
Least to most potent pain medications are defined
as: acetaminophen < NSAID < tramadol < opioids
(morphine, oxycodone, hydromorphone).
- Requesting a lesser dose of the same medication IF
ORDERED.
- Requesting a less intrusive route of administration
if both routes are prescribed by the provider (PO <
IV).
05/13/25 03:31
0.9% Sodium Chloride 500 ml [Nss] 500 ml IV BOLUS
Abnormal Lab Results
05/13/25 05/13/25 05/13/25
00:06 01:23 02:09
WBC 21.5 H 10^3/uL
(4.8-10.8)
RBC 3.74 L 10^6/uL
(4.70-6.10)
Hgb 10.3 L D g/dL 8.4 L g/dL
(13.0-18.0) (13.0-18.0)
Hct 32.8 L %
(39.0-52.0)
MCHC 31.4 L g/dL
(33.0-37.0)
RDW 17.3 H %
(11.5-14.5)
MPV 11.8 H fL
(7.4-10.4)
Abs Immat Gran (auto) 2.4 H 10^3/uL
(0-0.05)
Absolute Neuts (auto) 15.5 H 10^3/uL
(1.4-6.5)
Absolute Monos (auto) 2.2 H 10^3/uL
(0.1-0.6)
Immature Gran % 11.1 H %
(0-0.5)
Lymphocytes % 5.7 L %
(20.5-51.1)
Monocytes % 10.2 H %
(1.7-9.3)
PT 14.7 H Sec
(11.4-14.6)
APTT 43.5 H Sec
(23.4-35.0)
BUN 32 H mg/dl
(9-20)
Glucose 121 H mg/dl
(70-99)
Calcium 7.9 L mg/dl
(8.4-10.2)
Total Bilirubin < 0.1 L mg/dl
(0.2-1.3)
Total Protein 5.4 L g/dl
(6.3-8.2)
Albumin 3.0 L g/dl
(3.5-5.0)
Crossmatch IS Only See Detail
05/13/25 02:09
05/13/25 00:06
Vital Signs
Initial and Last Documented VS:
Initial Vital Signs
Temp Pulse Resp BP Pulse Ox
36.9 C 83 20 130/81 97
05/12/25 23:47 05/12/25 23:47 05/12/25 23:47 05/12/25 23:47 05/12/25 23:47
Last Documented Vital Signs
Temp Pulse Resp BP Pulse Ox
36.5 C 81 18 115/69 98
05/13/25 03:35 05/13/25 03:35 05/13/25 03:35 05/13/25 03:35 05/13/25 03:00
<Amaris Jackson PA-C - Last Filed: 05/13/25 04:05>
MDM/Problems Addressed
Differential Diagnosis Includes:
GI bleed, diverticular bleed,
MDM/Problems Addressed:
70-year-old male
h/o ITP
on steroids
GI bleeding today
several episiodes at home
active bleeding here
stable BP
hg drop from 13 to 10 to 8
cta shows active bleeding sigmoid tic
transfusion intiatied due to hg drop and continued bleeding with act bleeding on ct
IR consulted and they will come in to treat
admit
<Fuad Rogel DO - Last Filed: 05/13/25 02:36>
*Pulse Oximetry
SaO2: 98
Oxygen Mode of Delivery: Room air
*Critical Care Note
Total Time (30-74mins, 75-104mins- exclusive of procedures): 45-minutes
<Amaris Jackson PA-C - Last Filed: 05/13/25 04:05>
*Pulse Oximetry
Patient hypoxic: no (98)
ED Attending Note
<Fuad Rogel DO - Last Filed: 05/13/25 02:36>
ED Attending Note
Patient seen and examined by attending physician: Yes
I performed the substantive portion of visit, reviewed & personally made and approve the management plan that is documented in note by myself or TYRA.: Yes
ED Attending Note:
70-year-old male who presents with rectal bleeding. Patient does have a history of thrombocytopenia. Also history of diverticulosis. Multiple episodes of GI bleeding here in the emergency department. Hemoglobin is dropped to 8.4 from baseline of
13 performed on May 07. Exam: Abdomen grossly nontender, no respiratory distress. Assessment and plan: Transfuse packed red blood cells. CTA does show sigmoid bleeding. Case discussed with interventional radiology. Case discussed with,
hospitalist. Admit to ICU. Likely will need IR intervention
-
Portions of this chart may have been created with voice recognition software.� Occasional wrong word or��sound alike� substitutions may have occurred due to the inherent limitations of voice recognition software.
Discharge Plan
Departure
Patient Disposition: Admit
Date of Disposition: 05/13/25
Time of Disposition: 02:33
Admit to: ICU
Presentation/result/management discussed w/ accepting MD/DO: Hospitalist
Condition: Fair
Covid-19: Not Applicable
Discharge Problem:
GI (gastrointestinal bleed)
Interventions
Interventions:
*General Assessment Last Done: 05/12/25 23:52
*Neglect/Abuse Screening Last Done: 05/12/25 23:52
*ED COVID-19 Vaccine History Last Done: 05/12/25 23:52
*ED Influenza Vaccine History Last Done: 05/12/25 23:52
[facility] Fall Risk Assessment Tool Last Done: 05/12/25 23:52
*Risk Screen - Suicide (C-SSRS) Last Done: 05/12/25 23:52
GE-Ptqmda-Ugzeqrspwb Assessment Last Done: 05/12/25 23:53
ED- Cardiac Assessment Last Done: 05/12/25 23:53
ED- Pulmonary Assessment Last Done: 05/12/25 23:53
[2025-05-13 02:01] LABS: INR 1.17; PT 14.7 Sec (11.4-14.6)
[2025-05-13 02:02] LABS: APTT 43.5 Sec (23.4-35.0)
--- NOTE | 2025-05-13 02:18 | EDRN ---
the pt had a 2nd episode of rectal bleeding on absorbant pad while laying in Er stretcher. Rectal bleeding is dark red/maroon in color, with gross blood clots, and was approx 200mL volume of blood loss. ER JOSIE Jackson was called to the pts
bedside immediately to evaluate the pt.
will continue to monitor this pt closely.
[2025-05-13 02:22] LABS: Nucleated Red Blood Cells % 0.2 % (-)
[2025-05-13 02:24] LABS: Hemoglobin 8.4 g/dL (13.0-18.0)
--- NOTE | 2025-05-13 03:31 | HPS.HSE ---
Family Physician
-
Family Physician: Jorge Luis Santos DO
Chief Complaint
-
Rectal Bleeding
History of Present Illness
Patient is a 70y M with PMH significant for RA< ITP and diverticular disease with prior bleeding who presents to ED complaining of rectal bleeding. Patient states that he had a BM around 4:30 PM and noted gross bright red blood at that time. He
felt well thereafter, ate dinner normally, etc. Around 9PM he started to have spontaneous bleeding from the rectum of dark, red blood. This has continued since that time.
Patient reports waves of nausea and crampy lower abdominal pain. He denies any episodes of emesis. He denies any chest pain, dyspnea or lightheadedness.
Patient reports prior episodes of GI bleeding / BRBPR due to diverticular disease. He has not previously required any urgent interventions. He has never had a bleeding episode that lasted this long before stopping spontaneously.
He is on no blood thinners or antiplatelet agents. He takes prednisone BID.
He is on N-plate for ITP (last dose was Saturday).
Medical History
Past Medical History
Past Medical History: Reports Other
Additional Past Medical History:
ITP
ASCVD / PAD
Diverticulitis/diverticulosis
GERD
Lower GI bleed
Small bowel obstruction status post resection 08/13/2022
BPH
Rheumatoid arthritis
Hypothyroidism
Past Surgical History: Reports Other
Additional Past Surgical History:
Hernia repair x 2
Splenectomy 1986
Small bowel resection 08/13/2022
Social History
Tobacco: Non-smoker
Alcohol: None
Drug: None
Personal: Single
Living: Alone
Employment: Retired
Family History
Family History: Not pertinent
Allergies / Home Medications
Allergies reflects when Allergies were last updated in [facility].
Home Medications with original date entered in [facility]
Allergy/Medication List:
Allergies
Allergy/AdvReac Type Severity Reaction Status Date / Time
aspirin Allergy ITP Verified 05/12/25 23:46
NSAIDS (Non-Steroidal Allergy ITP Verified 05/12/25 23:46
Anti-Inflamma
Penicillins Allergy Rash Verified 05/12/25 23:46
Sulfa (Sulfonamide Allergy Rash Verified 05/12/25 23:46
Antibiotics)
Home Medications
levothyroxine 50 mcg tablet 50 mcg PO DAILY Thyroid 11/03/22
prednisone 10 mg tablet 10 mg PO .DAILYINMORNING ITP 11/08/22
therapeutic multivitamin 1 tab PO DAILY Supplement 11/08/22
pantoprazole 40 mg tablet,delayed release 40 mg PO DAILY Gastrointestinal Issue 12/18/23
oxycodone 5 mg tablet 5 mg PO QPM Pain 09/24/24
romiplostim 250 mcg subcutaneous solution (Nplate) 250 mcg SC .EVERYMONDAY ITP 09/24/24
calcium 600 mg (as carbonate)-vit D3 10 mcg (400 unit)-minerals tablet 1 tab PO DAILY Supplement 09/28/24
ferrous sulfate 325 mg (65 mg iron) tablet (Iron (ferrous sulfate)) 325 mg PO DAILY Supplement 09/28/24
atorvastatin 20 mg tablet (Lipitor) 20 mg PO QPM High Cholesterol 01/28/25
oxycodone 5 mg tablet 5 mg PO BIDPRN PRN severe pain 01/28/25
prednisone 5 mg tablet 5 mg PO .[id number] 05/13/25
Review of Systems
-
History Source: Patient
A 12 point ROS was completed and negative except as noted: Yes
Constitutional: Reports Fatigue; Denies Fever or Chills
Respiratory: Denies Cough or Trouble Breathing
Cardiac: Denies Chest Pain or Palpitations
Abdomen/GI: Reports Nausea, Diarrhea and Bloody Stools; Denies Abdominal Pain, Vomiting or Anorexia
: Denies Dysuria or Frequency
Musculoskeletal: Reports Edema; Denies Joint Pain
Neurological: Reports Weakness; Denies Dizzy
Physical Exam
Vital Signs
Vital Signs
Temp Pulse Resp BP Pulse Ox
97.5 F 89 18 121/75 98
05/13/25 03:15 05/13/25 03:15 05/13/25 03:15 05/13/25 03:15 05/13/25 03:00
Physical Exam
General: Other (Pale, acutely ill-appearing 70y M.)
HEENT: Other (Dry MM. Neck supple.)
Respiratory: Clear; No Wheezes, Rales or Rhonchi
Cardiac: S1/S2 and Regular Rhythm; No Murmur
GI: Other (Abdomen is softly distended. BS present. Gross BRB from rectum fairly consistently since arrival.)
Musculoskeletal: No Clubbing, No Cyanosis and Other (2-3+ pitting edema b/l LEs with compression garments in place.)
Neuro: AO x 3
Laboratory Results
-
05/13/25 02:09
05/13/25 00:06
Laboratory Results
PT 14.7 Sec (11.4-14.6) H 05/13/25 01:23
INR 1.17 05/13/25 01:23
APTT 43.5 Sec (23.4-35.0) H 05/13/25 01:23
Total Bilirubin < 0.1 mg/dl (0.2-1.3) L 05/13/25 00:06
AST 27 U/L (17-59) 05/13/25 00:06
ALT 26 U/L (0-50) 05/13/25 00:06
Alkaline Phosphatase 84 U/L (38-126) 05/13/25 00:06
Impression/Plan
-
A/P: Patient is a 70y M with PMH significant for RA, ITP and diverticular disease who presents to ED complaining of bright red blood per rectum since 9PM this evening.
Lower GI Bleed
Acute Blood Loss Anemia
Diverticular Disease
- CT scan done in the ED shows sigmoid source of bleeding at likely diverticulum.
- Ongoing bleeding with significant decreased in Hgb (13 --> 8.4).
- Patient hemodynamically stable at present - but with brisk ongoing bleeding and ill-appearing.
- IVFs + blood products.
- Maintain adequate venous access with two large bore IVs.
- IR consulted and patient will go urgently for angio to attempt hemostasis.
- Admit to ICU s/p IR procedure for further evaluation and treatment.
- Continue volume replacement with IVFs + PRBCs.
- Follow H&H for changes.
- GI evaluation and [facility] evaluation for additional recommendations.
Rheumatoid Arthritis
ITP
Chronic Steroid Therapy
- Platelet count is adequate at present (228).
- Stress dose steroids for now given chronic prednisone, acute illness / hemodynamic compromise, etc.
- Resume usual PO prednisone when able.
Chronic Pain on Chronic Opioids
- Stable. IV pain control for now while NPO,.
- Resume usual regimen when able.
Hypothyroidism
- Resume T4 supplementation when able to take PO.
- Consider IV replacement if NPO x several days.
PAD
Chronic Lymphedema
- Stable. Continue compression garments / SCDs.
- Not on antiplatelet agents, etc for PAD given ITP.
Mesenteric Mass
Small Bowel Pneumatosis
RML Pulmonary Nodules
- Incidental findings from current / prior imaging.
- Follow for any related symptoms.
- Follow-up with PCP, Heme / Onc, etc as an outpatient for serial imaging, follow-up, etc.
DVT Prophylaxis: SCDs
Code Status: Full
--- NOTE | 2025-05-13 05:47 | W.PN.UPDATE ---
Update Note
Progress Note Update
Superselective DEO arteriogram showed no evidence of active bleeding, no embolization performed.
Patient was HD stable during procedure. He did have several bloody bowel movements during the procedure.
Bedrest for 5 hours.
[2025-05-13] MEDS: LR 1000 IV ×2 (06:10→14:05)
[2025-05-13] MEDS: SOLU-CORTEF 25 MG IV ×4 (06:17→23:12)
[2025-05-13 06:19] LABS: Glucose - Point of Care 138 mg/dl (70-99)
--- NOTE | 2025-05-13 06:45 | PTCARENOTE ---
Received patient from IR at 0550. Admitted with LGIB. 2nd unit of PRBC's infusing via LAC IV line. AAOx3. Large bloody BM noted upon arrival to unit. Oriented to unit and room. Call buckner within reach and use encouraged. Patient to remain supine
until 1030 per IR. R groin access site with clean dressing, no bleeding or hematoma noted. Continuing with plan of care.
--- NOTE | 2025-05-13 07:24 | CON.GI ---
Consultation
-
Date/Time Consultation Requested: 05/13/25 7am
Date/Time Consultation Performed: 05/13/25 7:24am
Requesting Provider: Christian Lafleur
Performing Provider: Leonardo Agrawal
Reason for Consultation: Rectal bleeding
Medical History
Chief Complaint / HPI
Chief Complaint: Painless hematochezia
History of Present Illness:
Sami is a 69-year-old male with a past history of diverticulosis, GERD, rheumatoid arthritis, anemia, ITP (seen by Dr. Marte, on chronic prednisone and weekly Nplate injections), hyperlipidemia, peripheral artery disease, hypothyroidism
presents with sudden onset painless rectal bleeding at 4pm last night. It seemed to resolve but then he had a more severe episode later in the evening and presents to ER. Hgb 10.3, dropped to 8.4. CT positive in sigmoid and angiogram was
negative. Now lying supine after angio, denies complaints
Colonoscopy with Dr. Melchor on 08/20/2024 showed diverticulosis of the entire colon, internal hemorrhoids, tortuous colon, normal, terminal ileum. Last EGD also on 08/20/2024 showed normal esophagus, mild gastritis, normal duodenum. Patient is
not on any blood thinners. Reports no NSAID use, however has been on chronic prednisone for over 50 years for ITP/RA. Of note, patient has a remote history within the last 2 years ago (patient uncertain of exact date) of ED at [facility]
visit for severe abdominal pain requiring ex lap for small bowel obstruction due to 'twisting of the bowel', reportedly did not require bowel resection. At that time he also had a hernia repaired.
Past Medical History
Past Medical History: Other (ITP, PAC, Diverticulosis. SBO.)
Past Surgical History: Other (Hernia repair x 2, splenectomy 1986, small bowel resection 2022, arthroscopy left knee 2023)
Social History
Tobacco: Non-Smoker
Alcohol: None
Family History
Family History: Reviewed & Not Pertinent
Allergies / Home Medications
Allergy/AdvReac Type Severity Reaction Status Date / Time
aspirin Allergy ITP Verified 05/12/25 23:46
NSAIDS (Non-Steroidal Allergy ITP Verified 05/12/25 23:46
Anti-Inflamma
Penicillins Allergy Rash Verified 05/12/25 23:46
Sulfa (Sulfonamide Allergy Rash Verified 05/12/25 23:46
Antibiotics)
�Medication �Instructions �Recorded
levothyroxine 50 mcg tablet 50 mcg PO DAILY Thyroid 11/03/22
prednisone 10 mg tablet 10 mg PO .DAILYINMORNING ITP 11/08/22
therapeutic multivitamin 1 tab PO DAILY Supplement 11/08/22
pantoprazole 40 mg tablet,delayed 40 mg PO DAILY Gastrointestinal 12/18/23
release Issue
oxycodone 5 mg tablet 5 mg PO QPM Pain 09/24/24
romiplostim 250 mcg subcutaneous 250 mcg SC .EVERYMONDAY ITP 09/24/24
solution (Nplate)
calcium 600 mg (as carbonate)-vit 1 tab PO DAILY Supplement 09/28/24
D3 10 mcg (400 unit)-minerals
tablet
ferrous sulfate 325 mg (65 mg 325 mg PO DAILY Supplement 09/28/24
iron) tablet (Iron (ferrous
sulfate))
atorvastatin 20 mg tablet (Lipitor) 20 mg PO QPM High Cholesterol 01/28/25
oxycodone 5 mg tablet 5 mg PO BIDPRN PRN severe pain 01/28/25
prednisone 5 mg tablet 5 mg PO .[id number] 05/13/25
Review of Systems
-
All other systems: A 12 pt ROS was Negative except as stated above in HPI
Vital Signs
Temp Pulse Resp BP Pulse Ox
97.3 F 78 16 123/64 95
05/13/25 04:10 05/13/25 06:45 05/13/25 06:45 05/13/25 06:45 05/13/25 06:39
Physical Exam
Exam
General: No Apparent Distress
HEENT: Normocephalic and Atraumatic
Respiratory: Non Labored Respirations
GI: Soft, Non Tender and Non Distended
Skin: Warm and Dry
Results
WBC 21.5 10^3/uL (4.8-10.8) H 05/13/25 00:06
Hgb 8.4 g/dL (13.0-18.0) L 05/13/25 02:09
Hct 32.8 % (39.0-52.0) L 05/13/25 00:06
MCV 87.7 fL (80.0-94.0) 05/13/25 00:06
Plt Count 228 10^3/uL (130-400) D 05/13/25 00:06
Absolute Neuts (auto) 15.5 10^3/uL (1.4-6.5) H 05/13/25 00:06
PT 14.7 Sec (11.4-14.6) H 05/13/25 01:23
INR 1.17 05/13/25 01:23
APTT 43.5 Sec (23.4-35.0) H 05/13/25 01:23
Sodium 138 mmol/L (135-145) 05/13/25 00:06
Potassium 3.9 mmol/L (3.5-5.1) 05/13/25 00:06
Chloride 106 mmol/L (98-107) 05/13/25 00:06
Carbon Dioxide 24 mmol/L (22-30) 05/13/25 00:06
BUN 32 mg/dl (9-20) H 05/13/25 00:06
Creatinine 1.0 mg/dL (0.7-1.3) 05/13/25 00:06
Calcium 7.9 mg/dl (8.4-10.2) L 05/13/25 00:06
Total Bilirubin < 0.1 mg/dl (0.2-1.3) L 05/13/25 00:06
AST 27 U/L (17-59) 05/13/25 00:06
ALT 26 U/L (0-50) 05/13/25 00:06
Alkaline Phosphatase 84 U/L (38-126) 05/13/25 00:06
Diagnostic Image Results:
Prior GI Procedures:
EGD:
Colonoscopy:
Assessment / Plan
-
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 Hgb 10.3 on admission, plt 228, CTA positive in sigmoid so pt went for angio which was negative. Hgb dropped
to 8.4, so 2 units PRBC ordered. Last colonoscopy in July 2024- pandiverticulosis
Impression:
Painless rectal bleed likely diverticular. Positive CTA, negative angio
ITP
Hx SBO/SB resection
Recommendations:
Continue to monitor BMs and trend Hgb
Hopefully bleeding stops spontaneously
If not, prep for colonoscopy. If severe bleeding send for repeat CTA/angio to embolize sigmoid source
Monitor plt count, consider Heme consult if dropping
-
-
Thank you for consultation and allowing me to participate in the patient's care. Please call the senior education specialist GI physician during the after hours with any questions or concerns.
[2025-05-13] MEDS: NSS (PRESERVATIVE FREE) 10 ML IV ×2 (07:35→19:55)
[2025-05-13] MEDS: PROTONIX IV 40 MG IV ×2 (07:35→19:56)
--- NOTE | 2025-05-13 07:45 | PTCARENOTE ---
Assumed care of patient. Pt rec'd A&Ox3. Pleasant. Weak but able to CALDWELL. Sensitive to repositioning. S1 S2 reg w/ NSR on monitor. Pedals confirmed by doppler. +2 pedal edema. PVD discoloration on bilateral LE's. On R/A...sats 98%. Lungs
clear...diminished in bases. Abdomen round...hyper BS. Incontinent of small dark bloody liquid stool. Voids yellow in urinal. Skin pale in color...scattered scabbed areas. Sacrum intact. Flat position per IR until 1030. Right groin puncture
site w/ dry and intact bandaid. 20P RAC w/ IVF's infusing. 20P LAC w/ PRBC's infusing. VS obtained. Call buckner within reach. Safe environment confirmed.
--- NOTE | 2025-05-13 07:53 | CON.INTV ---
Consultation
Consultation Request
Date/Time Consultation Requested: 05/13/2025
Date/Time Consultation Performed: 05/13/2020
Requesting Provider: Dr. Lafleur
Performing Provider: Dr. Alvarez
Reason for Consultation: GI bleed
Medical History
-
Chief Complaint: Rectal bleeding
History of Present Illness:
Mr. Florez is a 70-year-old male with history of ITP followed by Dr. Marte, rheumatoid arthritis, PAD, GERD, HLD, hypothyroidism, history of diverticulitis, last diverticular bleed in January 2025 for which she was hospitalized at presenting
with 5 episodes of BRBPR on 05/12 which initially started as dark blood with stool and then converted to strictly blood. Patient reports abdominal discomfort but denied syncope lightheadedness dizziness. This is the longest bleeding episode and
previous episodes have required no urgent intervention. He is on prednisone for ITP and takes Nplate last dose Saturday. He was most recently treated with IVIG a couple of weeks ago. In the ER initial vitals showed a pulse of 83 RR 20 BP 130/81
pulse ox 97%, labs notable for WBC 21 Hgb 10.3 which downtrended 2 hours later to 8.4, and platelets 228, BUN 32. CT scan in the ED shows sigmoid source of bleeding. Patient was typed and crossed and transfused 2 units pRBCs, stress dose steroids
and IR was consulted for urgent angio for hemostasis although angiogram was negative for active bleed and there was no intervention. Last colonoscopy and EGD 07/2024 showed diverticulosis internal hemorrhoids and tortuous colon, mild gastritis.
This morning patient reported feeling okay compared to yesterday, did not have any bloody stools this morning and has not urinated. H&H is pending and vital signs were stable. Patient denied NSAID use or alcohol use. He did not endorse any
shortness of breath chest pain nausea or vomiting, did not endorse abdominal pain or pain with urination, no fevers no chills.
Past Medical History
Past Medical History: GERD, Hypercholesterolemia, Hypothyroidism and Other (ITP on steroids, diverticulosis, PAD)
Past Surgical History: Bowel Resection (SBO s/p resection 2022), Orthopedic (Left knee arthroscopy 2023) and Other (Splenectomy, hernia repair)
Social History
Tobacco: Non-smoker
Alcohol: None
Drug: None
Living: With Family
Family History
Family History: Reviewed & Not Pertinent
Allergies / Home Medications
Allergies
Allergy/AdvReac Type Severity Reaction Status Date / Time
aspirin Allergy ITP Verified 05/12/25 23:46
NSAIDS (Non-Steroidal Allergy ITP Verified 05/12/25 23:46
Anti-Inflamma
Penicillins Allergy Rash Verified 05/12/25 23:46
Sulfa (Sulfonamide Allergy Rash Verified 05/12/25 23:46
Antibiotics)
Home Medications
�Medication �Instructions �Recorded �Confirmed �Last Taken �Type
levothyroxine 50 mcg tablet 50 mcg PO DAILY Thyroid 11/03/22 05/13/25 01/27/25 History
prednisone 10 mg tablet 10 mg PO .DAILYINMORNING ITP 11/08/22 05/13/25 01/28/25 History
20 mg
therapeutic multivitamin 1 tab PO DAILY Supplement 11/08/22 05/13/25 01/27/25 History
pantoprazole 40 mg tablet,delayed 40 mg PO DAILY Gastrointestinal 12/18/23 05/13/25 01/27/25 History
release Issue
oxycodone 5 mg tablet 5 mg PO QPM Pain 09/24/24 05/13/25 01/27/25 History
romiplostim 250 mcg subcutaneous 250 mcg SC .EVERYMONDAY ITP 09/24/24 05/13/25 01/27/25 History
solution (Nplate)
calcium 600 mg (as carbonate)-vit 1 tab PO DAILY Supplement 09/28/24 05/13/25 01/27/25 History
D3 10 mcg (400 unit)-minerals
tablet
ferrous sulfate 325 mg (65 mg 325 mg PO DAILY Supplement 09/28/24 05/13/25 01/27/25 History
iron) tablet (Iron (ferrous
sulfate))
atorvastatin 20 mg tablet (Lipitor) 20 mg PO QPM High Cholesterol 01/28/25 05/13/25 01/27/25 History
oxycodone 5 mg tablet 5 mg PO BIDPRN PRN severe pain 01/28/25 05/13/25 Unknown History
prednisone 5 mg tablet 5 mg PO .[id number] 05/13/25 05/13/25 Unknown History
Review of Systems
-
History Source: Patient
All other systems: Negative unless noted
Constitutional: No Symptoms
EENT: No Symptoms
Respiratory: No Symptoms
Cardiac: No Symptoms
: No Symptoms
Musculoskeletal: Joint Pain (Left knee pain)
Skin: No Symptoms
Neuro: No Symptoms
Hematologic/Lymphatic: Bleeding
Vitals / Labs / Diagnostic Testing
Vital Signs
Temp Pulse Resp BP Pulse Ox
97.3 F 78 16 123/64 95
05/13/25 04:10 05/13/25 06:45 05/13/25 06:45 05/13/25 06:45 05/13/25 06:39
Lab Data
05/13/25 00:06
Laboratory Results
05/13/25
01:23
PT 14.7 H
INR 1.17
APTT 43.5 H
Diagnostic Testing:
Physical Exam
-
HEENT: Normocephalic and Anicteric
Cardiovascular: S1/S2, Regular Rhythm and Peripheral Edema
Respiratory: Clear and Non-Labored Respirations
GI: Soft, Non Distended, Non Tender, Normal Bowel Sounds and Other (Ventral hernia)
Neurology: Awake and Alert
Skin: Warm and Dry
General: Comfortable
Assessment
-
Mr. Florez is a 70-year-old male with history of ITP followed by Dr. Marte, rheumatoid arthritis, PAD, GERD, HLD, hypothyroidism, history of diverticulitis, last diverticular bleed in January 2025 for which she was hospitalized at presenting
with 5 episodes of BRBPR on 05/12 which initially started as dark blood with stool and then converted to strictly blood.
#Neurologic
Pain: Knee pain
Analgesia: hydromorphone 0.5 as needed
Mentation: At baseline, AAO x 3
Activity: Bedrest Post IR
Chronic pain on opioids
Due to knee pain
- IV pain medications
#Cardiovascular
Maintain MAP> 65
Pressors: None
QTc: 459
#Respiratory
O2 requirements: None
Home O2: None
Blood gas:
#Gastrointestinal
Diet: N.p.o.
Stooling regimen:
Tubes: None
Antiemetics: Zofran as needed
GI PPx: IV Protonix 40 mg twice daily
GI following
Diverticular bleed
Lower GI bleed
Hx diverticulitis, diverticular bleed January 2025
Last colonoscopy 07/2022 significant for [address]
CT abdomen pelvis notable for diverticular source of bleed
IR angiogram unable to identify and embolize source
S/p 2 PRBCs
Typed and crossed
-Trend H&H (13 -> 8.4)
-Continue IVF
-Continue PPI
-Possible surgical consultation if unable to stop bleed
Hyperlipidemia
Hold p.o. medication
Continue statin once able to take p.o.
#Renal
Roy present: No
Urine output:
IVF: LR 125ml/hr
Electrolytes: K>4 Mg>2
Na 138
K 3.9
Mag pending
#Infectious/immunology
WBC 21 on presentation
ABX: None
Microbiology:
Antipyretics:
Leukocytosis
Likely reactive on chronic steroids, received stress dose steroids
Continue to monitor temperature curve
Rheumatoid arthritis
On steroids at home
- Continue stress dose steroids until p.o. available
#Hematologic
DVT PPx: SCDs
Hemoglobin: 8.4
PT 14.7
INR 1.17
PTT 43
ITP
Follows with Dr. Marte
On Nplate on Mondays
Platelets on
Home prednisone 5 mg
-Stress dose steroids hydrocortisone 25 mg every 6
Anemia, acute blood loss
Hgb 8.4
Acute blood loss due to diverticular bleed
Trend H&H
Transfuse as needed
#Endocrine
Maintain euglycemia with goal BG 140�180
Hypothyroidism
Resume home medication when able to take in p.o.
May require IV replacement if n.p.o. for several days
#Surgical
#Access
Central:
None
Peripheral:
Left arm cephalic 20-gauge
Right arm cephalic 20-gauge
CODE STATUS: Full code
--- NOTE | 2025-05-13 08:02 | W.PN.HOSP.TC ---
Today's Communication/Plan
-
see AP
Assessment / Plan
Assessment / Plan
HPI: 70 yo M with PMH significant for RA, ITP and diverticular disease with prior bleeding; who presented with rectal bleeding.
He had a BM around 4:30 PM on DOA and noted gross bright red blood at that time. He felt well thereafter, ate dinner normally, etc. Around 9PM he started to have spontaneous bleeding from the rectum of dark, red blood. This continued hence he
presented to the ED.
Patient reported waves of nausea and crampy lower abdominal pain. He denies any episodes of emesis.
Patient reported prior episodes of GI bleeding / BRBPR due to diverticular disease. He has not previously required any urgent interventions. He has never had a bleeding episode that lasted this long before stopping spontaneously.
He is NOT on blood thinners or antiplatelet agents. He takes prednisone BID.
He is on N-plate for ITP (last dose was Saturday).
A/P:
# Lower GI Bleed
# Acute Blood Loss Anemia
# Diverticular Disease
CT scan done in the ED shows sigmoid source of bleeding at likely diverticulum. Follow formal report.
Ongoing bleeding with significant decreased in Hgb (13 -> 8.4). Hemodynamically stable but with brisk ongoing bleeding and ill-appearing.
To transfuse 2 units PRBC
IR consulted on admission and pt underwent superselective DEO arteriogram which showed no evidence of active bleeding, and no embolization performed.
Cont current ICU level of care with Risk Developer CS
Follow H&H for changes.
GI consulted, monitor for bleeding and consider colonoscopy if continues to bleed
# Rheumatoid Arthritis
# ITP
# Chronic Steroid Therapy
Platelet count is adequate at present , today at 228.
Cont stress dose steroid for now with hydrocortisone at 25 mg Q6H, resume ELEPHANT TAMER PO prednisone when able.
# Chronic Pain on Chronic Opioids, stable.
IV pain control for now while NPO,.
Resume usual regimen when able.
# Hypothyroidism
Resume T4 supplementation when able to take PO.
Consider IV replacement if NPO x several days.
# PAD
# Chronic Lymphedema, stable.
Continue compression garments / SCDs.
Not on antiplatelet agents, etc for PAD given ITP.
# Mesenteric Mass
# Small Bowel Pneumatosis
# RML Pulmonary Nodules
Incidental findings from current / prior imaging.
Follow for any related symptoms.
Follow-up with PCP, Heme / Onc, etc as an outpatient for serial imaging, follow-up, etc.
DVT Prophylaxis: SCDs
Code Status: Full
Anticipated Discharge: > 48 hours
Subjective/Interval History
-
Date of Service: May 13, 2025
Objective Data
-
Labs:
Laboratory Results
05/13/25 05/13/25 05/13/25
00:06 01:23 02:09
WBC 21.5 H
Hgb 10.3 L D 8.4 L
Hct 32.8 L
Plt Count 228 D
PT 14.7 H
INR 1.17
APTT 43.5 H
Sodium 138
Potassium 3.9
Chloride 106
Carbon Dioxide 24
BUN 32 H
Creatinine 1.0
Glucose 121 H
Calcium 7.9 L
Total Bilirubin < 0.1 L
AST 27
ALT 26
Alkaline Phosphatase 84
05/13/25 05/13/25 05/13/25
06:04 12:04 18:04
WBC
Hgb Pending Pending Pending
Hct Pending Pending Pending
Plt Count
PT
INR
APTT
Sodium
Potassium
Chloride
Carbon Dioxide
BUN
Creatinine
Glucose
Calcium
Total Bilirubin
AST
ALT
Alkaline Phosphatase
Vital Signs:
Vital Signs
Temp Pulse Resp BP Pulse Ox
36.3 C 78 16 123/64 95
05/13/25 04:10 05/13/25 06:45 05/13/25 06:45 05/13/25 06:45 05/13/25 06:39
I&O
05/12/25 05/13/25 05/14/25
06:59 06:59 06:59
Intake Total 0 / 0
Balance 0 / 0
Review of Systems
-
History Source: Patient
All other systems: Reviewed and negative
Abdomen/GI: Denies Abdominal Pain
Physical Exam
-
General: Well Developed, Well Nourished, No Apparent Distress, Comfortable and Conversant
HEENT: Normocephalic, Atraumatic, Nose Appears Normal and Ears Appear Normal
Respiratory: Clear to Auscultation and Non Labored Respirations; Negative Accessory Resp Muscle Use
Cardiac: Regular Rhythm and S1/S2
GI: Soft, Nontender, Nondistended and Normal Bowel Sounds
Musculoskeletal: No Clubbing, No Cyanosis and No Edema
Skin: Warm and Dry
Neuro: Awake, Alert and Oriented
Psych: Calm and Intact Judgement/Insight
Data Reviewed
-
Labs: Labs Reviewed by me
[2025-05-13 09:14] LABS: Magnesium 2.1 mg/dl (1.6-2.3)
[2025-05-13 10:21] LABS: Hematocrit 25.6 % (39.0-52.0); Hemoglobin 8.2 g/dL (13.0-18.0)
--- NOTE | 2025-05-13 10:45 | PTCARENOTE ---
Addendum entered by Alejandra Koo RN 05/13/25 11:25:
made aware of repeat HH results. Will do f/u labs.
Original Note:
HOB raised to 30 degrees. Allowed ice chips intermittently. Right groin bandaid dry and intact. Oral care done. Call buckner within reach.
--- NOTE | 2025-05-13 12:00 | PTCARENOTE ---
No major changes in physical assessment since am. VS documented. Call buckner within reach. Safe environment confirmed.
--- NOTE | 2025-05-13 16:00 | PTCARENOTE ---
Repeat HH sent. LR infusing. No major changes in physical assessment. Call buckner within reach. Ice chips provided.
[2025-05-13 16:17] LABS: Hematocrit 25.7 % (39.0-52.0); Hemoglobin 8.6 g/dL (13.0-18.0)
[2025-05-13 23:38] LABS: Hematocrit 23.2 % (39.0-52.0); Hemoglobin 7.8 g/dL (13.0-18.0)
[2025-05-14] VITALS: BP 135/69
[2025-05-14 04:00] VITALS: BP 129/62
[2025-05-14 04:27] LABS: Hematocrit 23.8 % (39.0-52.0); Hemoglobin 8.0 g/dL (13.0-18.0)
[2025-05-14 04:49] LABS: Blood Urea Nitrogen 19 mg/dl (9-20); Calcium 7.4 mg/dl (8.4-10.2); Carbon Dioxide 22 mmol/L (22-30); Chloride 109 mmol/L (98-107); Estimated Creatinine Clearance 118 ml/min; Glucose 95 mg/dl (70-99); Potassium 3.7 mmol/L (3.5-5.1); Sodium 135 mmol/L (135-145); eGFR > 60.00
[2025-05-14 05:36] LABS: Hematocrit 23.6 % (39.0-52.0); Hemoglobin 7.9 g/dL (13.0-18.0); Mean Corp Hgb Conc. 33.5 g/dL (33.0-37.0); Mean Corpuscular Volume 87.1 fL (80.0-94.0); Platelet Count 68 10^3/uL (130-400); Red Cell Dist. Width 17.2 % (11.5-14.5)
[2025-05-14 05:51] VITALS: BMI 22.8
[2025-05-14] MEDS: SOLU-CORTEF 25 MG IV ×3 (06:14→19:35)
--- NOTE | 2025-05-14 06:43 | W.PN.GI.CBS2 ---
Today's Communication / Plan
-
Suspect resolved diverticular hemorrhage, no signs to suggest recurrent bleeding. Advance diet to low fiber, low residue diet. If signs to suggest recurrent hematochezia, would re-engage IR for repeat Angio vs empiric embolization. Rest as outlined
below.
Assessment / Plan
-
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 Hgb 10.3 on admission, plt 228, CTA positive in sigmoid so pt went for angio which was negative. Hgb dropped
to 8.4, so 2 units PRBC ordered. Last colonoscopy in July 2024- pandiverticulosis
#Painless rectal bleed likely diverticular hemorrhage. Positive CTA, negative angio
#Hx of ITP
#Hx SBO/SB resection
#Hx of Known Mesenteric Mass
Recommendations:
- No further signs to suggest recurrent bleeding, further consistent with resolved diverticular hemorrhage
- Okay for low-residue, low-fiber diet today
- Trend Hgb with serial CBC
- As no further signs to suggest recurrent bleeding and recent colonoscopy (07/2024), no plans for a colonoscopy at this time
- If recurrent large volume hematochezia and prior (+) CTA, would re-engage IR for repeat Angio and/or empiric embolization
- Transfuse for goal plts > 50k given GIB
- Needs close outpatient f/u given known mesenteric mass, ordered PET/CT as outpatient and outpatient f/u with his primary GI, Dr. Geiger, after discharge
- Rest of care as per primary team
Discussed with primary GI team this AM.
Subjective
Subjective
Date of Service: May 14, 2025
- S/p 2 uPRBCs on 05/13, Hgb remains stable overnight 7.8 -> 7.9
- Otherwise, no acute events overnight
Resting comfortably, denies any further recurrent bloody stools / hematochezia or old blood. Last BM over 48 hours ago. Hoping to have more solid food this AM. Otherwise, denies any abdominal pain or other nausea/vomiting. Discussed findings as well
regarding concern for mesenteric mass, supposed to have an eventual PET/CT scan as outpatient as ordered by his GI/Oncology.
Objective
Data Reviewed
Laboratory Data:
Laboratory Results
05/14/25 04:14
05/14/25 04:14
Laboratory Results
PT 14.7 Sec (11.4-14.6) H 05/13/25 01:23
INR 1.17 05/13/25 01:23
APTT 43.5 Sec (23.4-35.0) H 05/13/25 01:23
Magnesium 2.1 mg/dl (1.6-2.3) 05/13/25 00:06
Total Bilirubin < 0.1 mg/dl (0.2-1.3) L 05/13/25 00:06
AST 27 U/L (17-59) 05/13/25 00:06
ALT 26 U/L (0-50) 05/13/25 00:06
Alkaline Phosphatase 84 U/L (38-126) 05/13/25 00:06
Vital Signs and I&O:
Vital Signs
Temp Pulse Resp BP Pulse Ox
98.5 F 81 16 129/62 98
05/14/25 03:10 05/14/25 06:15 05/14/25 06:15 05/14/25 04:00 05/14/25 06:15
I&O
05/12/25 05/13/25 05/14/25
06:59 06:59 06:59
Intake Total 250 / 375 2350 / 2350
Output Total 1270 / 1270
Balance 250 / 375 1080 / 1080
Physical Exam
Physical Exam
HEENT: Anicteric and Moist mucous membranes
Cardiology: Other (RR on tele)
Pulmonary: Other (Normal WOB on room air)
GI: Soft, Non Distended and Non Tender
Extremities: No Edema
Neuro: Non Focal
[2025-05-14 07:43] LABS: Nucleated Red Blood Cells % 0.5 % (-)
[2025-05-14 08:00] VITALS: BP 140/65
--- NOTE | 2025-05-14 08:12 | W.PN.HOSP.TC ---
Addendum entered and electronically signed by Rama Davalos MD 05/14/25 08:41:
d/w GI Dr Ann. Given GI bleed appear to have resolved, no plan for C scope.
Recc to continue monitor for GIB and Hgb for another 24 hours
Original Note:
Today's Communication/Plan
-
see AP
Assessment / Plan
Assessment / Plan
HPI: 70 yo M with PMH significant for RA, ITP and diverticular disease with prior bleeding; who presented with rectal bleeding.
He had a BM around 4:30 PM on DOA and noted gross bright red blood at that time. He felt well thereafter, ate dinner normally, etc. Around 9PM he started to have spontaneous bleeding from the rectum of dark, red blood. This continued hence he
presented to the ED.
Patient reported waves of nausea and crampy lower abdominal pain. He denies any episodes of emesis.
Patient reported prior episodes of GI bleeding / BRBPR due to diverticular disease. He has not previously required any urgent interventions. He has never had a bleeding episode that lasted this long before stopping spontaneously.
He is NOT on blood thinners or antiplatelet agents. He takes prednisone BID.
He is on N-plate for ITP (last dose was Saturday).
CT AP:
1. Extravasation of contrast within the sigmoid colon, suggestive of active diverticular hemorrhage.
2. Pneumatosis intestinalis within a loop of mildly dilated small bowel in the right lower quadrant. Please correlate for symptoms of ischemia.
3. Retractile mesenteric mass as detailed above, unchanged compared to prior CT. New compared to prior CT dated 02/24/2024. Differential diagnosis includes sclerosing adenitis, carcinoid tumor, among others.
A/P:
# Acute Blood Loss Anemia with hematochezia likely 2/[address] AP showed active diverticular hemorrhage.
IR consulted on admission and pt underwent superselective DEO arteriogram which showed no evidence of active bleeding, and no embolization performed.
s/p 2 units PRBC transfusion
Cont to monitor Hgb, today at 7.9
Cont current ICU level of care
GI on board, recc to monitor for bleeding and consider colonoscopy if continues to bleed
Con current PPI IV BID
# Rheumatoid Arthritis
# ITP
# Chronic Steroid Therapy
# Leucocytosis 2/2 steroid
Cont stress dose steroid with hydrocortisone 25 mg Q6H, resume CRUSHER LOADER OPERATOR PO prednisone when able.
Noted drop in Platelet count from 228 to 68.
Heme CS to eval for platelet transfusion vs Nplate for drop in platelet count
# Chronic Pain on Chronic Opioids, stable.
Change IV pain med to CRUSHER LOADER OPERATOR PO pain med
# Hypothyroidism
Resume CRUSHER LOADER OPERATOR levothyroxine
# PAD
# Chronic Lymphedema, stable.
Continue compression garments / SCDs.
Not on antiplatelet agents, etc for PAD given ITP.
# Mesenteric Mass
# Small Bowel Pneumatosis
Incidental findings from current / prior imaging.
Follow for any related symptoms.
Follow-up with PCP, Heme / Onc, etc as an outpatient for serial imaging, follow-up, etc.
DVT Prophylaxis: SCDs
Code Status: Full
DW RN
total time 51 min
Anticipated Discharge: 24 - 48 hours
Subjective/Interval History
-
Date of Service: May 14, 2025
Objective Data
-
Labs:
Laboratory Results
05/13/25 05/14/25 05/14/25
23:28 04:14 04:14
WBC 28.6 H
Hgb 7.8 L 8.0 L 7.9 L
Hct 23.2 L 23.8 L
Plt Count
Sodium
Potassium
Chloride
Carbon Dioxide
BUN
Creatinine
Glucose
Calcium
05/14/25 05/14/25
04:14 14:00
WBC Pending
Hgb Pending
Hct 23.6 L Pending
Plt Count 68 L D Pending
Sodium 135
Potassium 3.7
Chloride 109 H
Carbon Dioxide 22
BUN 19
Creatinine 0.6 L
Glucose 95
Calcium 7.4 L
Vital Signs:
Vital Signs
Temp Pulse Resp BP Pulse Ox
36.7 C 81 16 129/62 98
05/14/25 07:42 05/14/25 06:15 05/14/25 06:15 05/14/25 04:00 05/14/25 06:15
I&O
05/13/25 05/14/25 05/15/25
06:59 06:59 06:59
Intake Total 250 / 375 2350 / 2350
Output Total 1270 / 1545 275 / 275
Balance 250 / 375 1080 / 805 -275 / -275
Review of Systems
-
History Source: Patient
All other systems: Reviewed and negative
Abdomen/GI: Denies Abdominal Pain or Bloody Stools (resolved )
Physical Exam
-
General: Well Developed, Well Nourished, No Apparent Distress, Comfortable and Conversant
HEENT: Normocephalic, Atraumatic, Nose Appears Normal and Ears Appear Normal
Respiratory: Clear to Auscultation and Non Labored Respirations; Negative Accessory Resp Muscle Use
Cardiac: Regular Rhythm and S1/S2
GI: Soft, Nontender, Nondistended and Normal Bowel Sounds
Musculoskeletal: No Clubbing, No Cyanosis and No Edema
Skin: Warm and Dry
Neuro: Awake, Alert and Oriented
Psych: Calm and Intact Judgement/Insight
Data Reviewed
-
CT Scan: Report Reviewed by me and Discussed with Patient
Labs: Labs Reviewed by me
--- NOTE | 2025-05-14 08:30 | CON.ONC ---
Documented by User: JOSE MARTIN Del Rosario 05/14/25 15:38
Consultation
-
Date Consultation Requested: 05/14/25
Date Consultation Performed: 05/14/25
Requesting Provider: Dr. Davalos
Performing Provider: Dr. Kobe Menendez
Reason for Consultation: ITP
Impression
Impression
ITP, last dose Thursday 05/10
rectal bleeding -pt underwent superselective DEO arteriogram which showed no evidence of active bleeding, and no embolization performed
mesenteric mass
Plan
Plan
transfuse Hgb <8
platelet count in a blue jourdan tube to avoid clumping
avoid AC, AP, NSAIDs with active bleeding
OP follow up with Dr. Geiger & PET for continued evaluation of mesenteric mass
Patient History
History of Present Illness
70yo M presented with rectal bleeding. He noted bright red blood with his bowel movement around 4pm yesterday. He then had spontaneous bleeding of dark red blood from his rectum around 9pm. He denies fever, sick contacts, or decreased appetite. His
reports that he also started to have cramping and lower abdominal pain since last evening as well. CT AP extravasation of contrast within the sigmoid colon, suggestive of active diverticular hemorrhage. Pneumatosis intestinalis within a loop of
mildly dilated small bowel in the right lower quadrant.Retractile mesenteric mass. Patient underwent superselective DEO arteriogram, no embolization performed.
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 He has been on chronic prednisone and receives weekly NPLATE, last dose 05/10. He continues to pass maroon stool.
Afebrile, no hypoxia or hypotension.
Past-Medical/Surgical History
PMH RA, ITP, ostarthritis, PAD, GERD, SOB, BPH, hypotyroid
PSH hernia repair, splenectomy 1986, small bowel resection 08/13/2022
Social non smoker, denies etoh or recreational drugs. retired. Lives alone
Family non contributory
Patient Medication
�Medication �Instructions �Recorded �Confirmed �Last Taken �Type
levothyroxine 50 mcg tablet 50 mcg PO DAILY Thyroid 11/03/22 05/13/25 01/27/25 History
prednisone 10 mg tablet 10 mg PO .DAILYINMORNING ITP 11/08/22 05/13/25 01/28/25 History
20 mg
therapeutic multivitamin 1 tab PO DAILY Supplement 11/08/22 05/13/25 01/27/25 History
pantoprazole 40 mg tablet,delayed 40 mg PO DAILY Gastrointestinal 12/18/23 05/13/25 01/27/25 History
release Issue
oxycodone 5 mg tablet 5 mg PO QPM Pain 09/24/24 05/13/25 01/27/25 History
romiplostim 250 mcg subcutaneous 250 mcg SC .EVERYMONDAY ITP 09/24/24 05/13/25 01/27/25 History
solution (Nplate)
calcium 600 mg (as carbonate)-vit 1 tab PO DAILY Supplement 09/28/24 05/13/25 01/27/25 History
D3 10 mcg (400 unit)-minerals
tablet
ferrous sulfate 325 mg (65 mg 325 mg PO DAILY Supplement 09/28/24 05/13/25 01/27/25 History
iron) tablet (Iron (ferrous
sulfate))
atorvastatin 20 mg tablet (Lipitor) 20 mg PO QPM High Cholesterol 01/28/25 05/13/25 01/27/25 History
oxycodone 5 mg tablet 5 mg PO BIDPRN PRN severe pain 01/28/25 05/13/25 Unknown History
prednisone 5 mg tablet 5 mg PO .[id number] 05/13/25 05/13/25 Unknown History
Active Medications
Generic Name Dose Route Start Last Admin
Trade Name Freq PRN Reason Stop Dose Admin
Hydrocortisone Sodium Succinate 25 mg 05/13/25 06:15 05/14/25 06:14
Hydrocortisone Sodium Succinate 100 Mg/2 Ml Vial IV 06/10/25 06:14 25 mg
Q6 SOBIA Administration
Levothyroxine Sodium 50 mcg 05/14/25 09:00
Levothyroxine 50 Mcg Tablet PO 06/11/25 08:59
DAILY@0600 SOBIA
Ondansetron HCl 4 mg 05/13/25 12:00
Ondansetron 4 Mg/2 Ml Vial IV 06/10/25 11:59
Q6HPRN PRN
nausea and vomiting
Oxycodone HCl 5 mg 05/14/25 08:20
Oxycodone 5 Mg Regular Release Tablet PO 05/28/25 08:19
BIDPRN PRN
severe pain
Oxycodone HCl 5 mg 05/14/25 18:00
Oxycodone 5 Mg Regular Release Tablet PO 05/28/25 17:59
QPM SOBIA
Pantoprazole Sodium 40 mg 05/13/25 08:00 05/13/25 19:56
Pantoprazole Sodium 40 Mg/10 Ml Vial IV 06/10/25 07:59 40 mg
BID SOBIA Administration
Sodium Chloride 0 flush 05/13/25 07:00
Sodium Chloride 0.9% (Flush) Syringe IV 06/10/25 06:59
PER PROTOCOL SOBIA
Sodium Chloride 10 ml 05/13/25 08:00 05/13/25 19:55
Sodium Chloride 0.9% (Preservative Free) 10 Ml Vial IV 06/10/25 07:59 10 ml
BID SOBIA Administration
Review of Systems
-
ROS is notable for HPI, otherwise negative
Physical Exam
-
General: No Apparent Distress
HEENT: Negative Jaundice
Pulmonary: Other (unlabored)
GI: Soft
Extremities: Pulses Present and Edema (b/l LE pitting)
Neurology: Non Focal
Skin: Warm
Psych: Calm
Labs
Lab Results
WBC 28.6 10^3/uL (4.8-10.8) H 05/14/25 04:14
RBC 2.71 10^6/uL (4.70-6.10) L 05/14/25 04:14
Hgb 7.9 g/dL (13.0-18.0) L 05/14/25 04:14
Hgb 8.0 g/dL (13.0-18.0) L 05/14/25 04:14
Hct 23.6 % (39.0-52.0) L 05/14/25 04:14
Hct 23.8 % (39.0-52.0) L 05/14/25 04:14
MCV 87.1 fL (80.0-94.0) 05/14/25 04:14
MCH 29.2 pg (27.0-31.0) 05/14/25 04:14
MCHC 33.5 g/dL (33.0-37.0) 05/14/25 04:14
RDW 17.2 % (11.5-14.5) H 05/14/25 04:14
Plt Count 68 10^3/uL (130-400) L D 05/14/25 04:14
MPV Not Reportable 05/14/25 04:14
Abs Immat Gran (auto) 2.8 10^3/uL (0-0.05) H 05/14/25 04:14
Absolute Neuts (auto) 22.2 10^3/uL (1.4-6.5) H 05/14/25 04:14
Absolute Lymphs (auto) 1.4 10^3/uL (1.2-3.4) 05/14/25 04:14
Absolute Monos (auto) 2.0 10^3/uL (0.1-0.6) H 05/14/25 04:14
Absolute Eos (auto) 0.0 10^3/uL (0-0.7) 05/14/25 04:14
Absolute Basos (auto) 0.1 10^3/uL (0-0.2) 05/14/25 04:14
Immature Gran % 9.9 % (0-0.5) H 05/14/25 04:14
Neutrophils % 77.8 % (42.2-75.2) H 05/14/25 04:14
Lymphocytes % 4.8 % (20.5-51.1) L 05/14/25 04:14
Monocytes % 7.0 % (1.7-9.3) 05/14/25 04:14
Eosinophils % 0.1 % (0-6) 05/14/25 04:14
Basophils % 0.4 % (0-2) 05/14/25 04:14
Creatinine 0.6 mg/dL (0.7-1.3) L 05/14/25 04:14
Vital Signs
Vital Signs
Temp Pulse Resp BP Pulse Ox
98.1 F 81 16 129/62 98
05/14/25 07:42 05/14/25 06:15 05/14/25 06:15 05/14/25 04:00 05/14/25 06:15

Documented by User: Kobe Menendez MD 05/14/25 16:32
Plan
Plan
transfuse Hgb <8
platelet count in a blue jourdan tube to avoid clumping
avoid AC, AP, NSAIDs with active bleeding
OP follow up with Dr. Geiger & PET for continued evaluation of mesenteric mass
Hematology Addendum:
Patient seen and evaluated and agree w/ ASSISTANT PRODUCE MANAGER note and plan as outlined
-plts when re-checked in non-EDTA tube - 99,000
-recommend continued monitoring of CBC in non-EDTA tube - to avoid plt clumping affecting accurate platelet count
-follow CBC
-transfuse prn
--- NOTE | 2025-05-14 08:38 | W.PN.INTV ---
Today's Communication / Plan
Recommendations
Heme-onc consult
Restart p.o. meds
Downgrade from ICU
Assessment
-
Mr. Florez is a 70-year-old male with history of ITP followed by Dr. Marte, rheumatoid arthritis, PAD, GERD, HLD, hypothyroidism, history of diverticulitis, last diverticular bleed in January 2025 for which she was hospitalized at presenting
with 5 episodes of BRBPR on 05/12 which initially started as dark blood with stool and then converted to strictly blood.
#Neurologic
Pain: Knee pain
Analgesia: Oxycodone 5 mg every afternoon, 5 mg as needed
Mentation: At baseline, AAO x 3
Activity:
Chronic pain on opioids
Due to knee pain
- Oxycodone 5 mg
#Cardiovascular
Maintain MAP> 65
Pressors: None
QTc: 459
#Respiratory
O2 requirements: None
Home O2: None
Blood gas:
#Gastrointestinal
Diet: Low residue
Stooling regimen:
Tubes: None
Antiemetics: Zofran as needed
GI PPx: IV Protonix 40 mg twice daily
GI following
Acute blood loss anemia due to diverticular bleed
Lower GI bleed
Hx diverticulitis, diverticular bleed January 2025
Last colonoscopy 07/[address] abdomen pelvis notable for diverticular source of bleed
IR angiogram unable to identify and embolize source
S/p 2 PRBCs
Typed and crossed
-Trend H&H (13 -> 8.4-> 8.2-> 8.6-> 7.8-> 7.9)
-Continue PPI
- If actively bleeding contact IR
Hyperlipidemia
Liver enzymes within normal limits
Continue statin
#Renal
Roy present: No
Urine output: 1.5 L
IVF: None
Electrolytes: K>4 Mg>2
Na 135
K 3.7
Mag 2.1
#Infectious/immunology
WBC 21-> 28
ABX: None
Microbiology:
Antipyretics:
Leukocytosis
Likely reactive on chronic steroids, received stress dose steroids
Continue to monitor temperature curve
Rheumatoid arthritis
On steroids at home
- Continue stress dose steroids
#Hematologic
DVT PPx: SCDs
Hemoglobin: 8.4->8.2-> 8.6-> 7.8-> 7.9
PT 14.7
INR 1.17
PTT 43
Heme-onc consult
ITP
Follows with Dr. Marte
On Nplate on Mondays
Platelets on presentation 228-> 68
Home prednisone 5 mg
- Stress dose steroids hydrocortisone 25 mg every 6
- Consider IVIG
Anemia, acute blood loss
Acute blood loss due to diverticular bleed
Trend H&H
Transfuse as needed, goal 7
#Endocrine
Maintain euglycemia with goal BG 140�180
Hypothyroidism
Resume home medication levothyroxine 50 mcg
#Surgical
#Access
Central:
None
Peripheral:
Left arm cephalic 20-gauge
Right arm cephalic 20-gauge
Dispo:
CODE STATUS: Full code
Subjective Dataa
Subjective Data
Date of Service:
Saw patient at bedside this morning, reports doing well. Hungry. Was able to tolerate CLD yesterday without issues diet advanced to low residue this morning by GI. Reported no bloody stools no blood in urine, reports no shortness of breath or
chest pain nausea vomiting abdominal pain fevers or chills. Date of Service: May 14, 2025
Review of Systems
General: Satisfactory Appetite
Objective Data
Data Reviewed
Vital Signs / I&O / Oxygen:
Vital Signs
Temp Pulse Resp BP Pulse Ox
98.1 F 81 16 129/62 98
05/14/25 07:42 05/14/25 06:15 05/14/25 06:15 05/14/25 04:00 05/14/25 06:15
Intake and Output
05/13/25 05/14/25 05/15/25
06:59 06:59 06:59
Intake Total 250 / 375 2350 / 2350
Output Total 1270 / 1545 275 / 275
Balance 250 / 375 1080 / 805 -275 / -275
SaO2 98
Physical Exam
General: Comfortable and Good Appetite
HEENT: Normocephalic and Anicteric
Cardiovascular: S1-S2 and Regular Rhythm
Respiratory: Non-Labored Respirations
GI: Soft, Non Distended, Non Tender and Normal Bowel Sounds
Neurology: Awake and Alert
Skin: Warm and Dry
Labs/Micro/Reports
Lab Data
05/14/25 04:14
[2025-05-14] MEDS: SYNTHROID 50 MCG PO (09:06)
[2025-05-14] MEDS: PROTONIX IV 40 MG IV ×2 (09:07→19:37)
[2025-05-14] MEDS: NSS (PRESERVATIVE FREE) 10 ML IV ×2 (09:07→19:38)
[2025-05-14 10:38] LABS: Hematocrit 27.5 % (39.0-52.0); Hemoglobin 8.9 g/dL (13.0-18.0); Mean Corp Hgb Conc. 32.4 g/dL (33.0-37.0); Mean Corpuscular Volume 87.9 fL (80.0-94.0); Platelet Count 99 10^3/uL (130-400); Red Cell Dist. Width 17.5 % (11.5-14.5)
[2025-05-14 11:00] VITALS: BP 121/69
[2025-05-14] MEDS: CALCIUM GLUCONATE 100 IV (11:19)
--- NOTE | 2025-05-14 12:31 | PTCARENOTE ---
Addendum entered by Arnaldo Melgoza RN 05/14/25 18:21:
Dr. Ann was made aware of burgundy red BM today.
Original Note:
Patient up in chair for breakfast for about 2-3 hours this morning. Ambulated to BR w/ FWW to brush teeth. After few min, became nauseous. Sat back down in chair. Pt had BM and stated he felt better; nausea resolved. VSS. BM is burgundy red with
odor of blood. Pt placed back to bed. Pt thankful for care. States he feels better after BM. Reports chronic weakness in his legs, specifically in his left leg.
Downgraded to telemetry; pt aware of this. Pt concerned about his 90 year old father who he resides with, worried about who will watch him at home. Support provided. Hematology consult in place. CBC recheck drawn and sent (with blue top).
[2025-05-14 14:38] VITALS: BP 123/66
--- NOTE | 2025-05-14 14:47 | CM ---
Initial assessment completed. Patient is a 70y M with PMH significant for RA< ITP and diverticular disease with prior bleeding who presents to ED complaining of rectal bleeding.
Patient resides w/ his father in a single story home, 2 steps to enter. Patient uses crutches when out in the community and a RW while in the house. Patient stated he is waiting on knee surgery to be scheduled. Patient has additional grab bar and
shower chair. No SNF hx. Current w/ OP PT for knee for the past year. Home care this past year about 9 month ago, believes [facility] but isn't sure.
Address, point of contact and insurance verified
PCP: Jorge Luis Santos
Pharmacy: [facility]
Plan: Anticipate d/c home, will follow for any needs
[2025-05-14 16:00] VITALS: BP 129/68
[2025-05-14] MEDS: LIPITOR 20 MG PO (18:15)
[2025-05-14] MEDS: ROXICODONE 5 MG PO (18:15)
--- NOTE | 2025-05-14 18:33 | PTCARENOTE ---
Patient washed, all linens changed. Up in chair for dinner. Tolerating low residue diet. Scheduled oxycodone provided for chronic left knee pain. PRN Desenex powder ordered per pt request. Right groin incision intact. Otherwise LE PVD discoloration
/edema (unchanged), and upper extremity purple bruising from chronic steroids(unchanged). NSR on telemetry. Patient thankful for care. Call buckner within reach.
[2025-05-15] VITALS (10 sets, daily range): BP systolic 125–145; BP diastolic 66–77; BMI 22.7
[2025-05-15] MEDS: SOLU-CORTEF 25 MG IV (03:58)
[2025-05-15 04:57] LABS: Fibrinogen 319 MG/DL (199-459)
[2025-05-15 05:13] LABS: Blood Urea Nitrogen 25 mg/dl (9-20); Calcium 7.7 mg/dl (8.4-10.2); Carbon Dioxide 24 mmol/L (22-30); Chloride 108 mmol/L (98-107); Estimated Creatinine Clearance 90 ml/min; Glucose 105 mg/dl (70-99); Potassium 3.5 mmol/L (3.5-5.1); Sodium 136 mmol/L (135-145); eGFR > 60.00
[2025-05-15] MEDS: SYNTHROID 50 MCG PO (05:59)
[2025-05-15 06:17] LABS: Hematocrit 23.4 % (39.0-52.0); Hemoglobin 7.5 g/dL (13.0-18.0); Mean Corp Hgb Conc. 32.1 g/dL (33.0-37.0); Mean Corpuscular Volume 88.0 fL (80.0-94.0); Red Cell Dist. Width 17.4 % (11.5-14.5)
[2025-05-15 06:27] LABS: Nucleated Red Blood Cells % 2.2 % (-); Platelet Count 44 10^3/uL (130-400)
--- NOTE | 2025-05-15 07:02 | W.PN.GI.CBS2 ---
Today's Communication / Plan
-
Recommend 1 uPRBC given drop in Hgb however no signs to suggest recurrent GI bleeding. If responds to transfusion, can be discharged from GI standpoint with close outpatient f/u given his diverticular bleed and known mesenteric mass. Will s/off,
please recontact with questions/concerns.
Assessment / Plan
-
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 Hgb 10.3 on admission, plt 228, CTA positive in sigmoid so pt went for angio which was negative. Hgb dropped
to 8.4, so 2 units PRBC ordered. Last colonoscopy in July 2024- pandiverticulosis
#Painless rectal bleed likely diverticular hemorrhage. Positive CTA, negative angio
#Hx of ITP
#Hx SBO/SB resection
#Hx of Known Mesenteric Mass
Recommendations:
- Continue regular diet as tolerated
- Drop in Hgb from 8.9 -> 7.5 but without signs to suggest recurrent bleeding
- Recommend 1 uPRBC and if repeat post-transfusion CBC is stable can be discharged from GI standpoint with close outpatient follow-up as should have a repeat CBC in 1-2 weeks
- Transfuse for goal plts > 50k if active/recurrent GIB
- No plans for a colonoscopy at this time given his recent colonoscopy back on 07/2024
- If recurrent large volume hematochezia and prior (+) CTA, would re-engage IR for repeat Angio and/or empiric embolization
- Needs close outpatient f/u given known mesenteric mass, ordered PET/CT as outpatient and outpatient f/u with his primary GI, Dr. Geiger, after discharge. Discussed again this AM
- Rest of care as per primary team
Discussed with primary GI team this morning. GI will s/off, please re-contact with any questions or concerns.
Subjective
Subjective
Date of Service: May 15, 2025
- Hgb 8.9 -> 7.5 on AM labs, reported to have old blood/burgundy bowel movement yesterday afternoon
- Otherwise, no acute events overnight
Feeling well, resting comfortably in bed. Reports small episode of old blood yesterday afternoon, denies any bright red blood or large volume hematochezia. Continues to feel well without any abdominal pain or nausea/vomiting. Hoping to go home later
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 Discussed close outpatient f/u with his primary GI given his known mesenteric mass.
Objective
Data Reviewed
Laboratory Data:
Laboratory Results
05/15/25 04:28
05/15/25 04:28
Laboratory Results
PT 14.7 Sec (11.4-14.6) H 05/13/25 01:23
INR 1.17 05/13/25 01:23
APTT 43.5 Sec (23.4-35.0) H 05/13/25 01:23
Magnesium 2.1 mg/dl (1.6-2.3) 05/13/25 00:06
Total Bilirubin < 0.1 mg/dl (0.2-1.3) L 05/13/25 00:06
AST 27 U/L (17-59) 05/13/25 00:06
ALT 26 U/L (0-50) 05/13/25 00:06
Alkaline Phosphatase 84 U/L (38-126) 05/13/25 00:06
Vital Signs and I&O:
Vital Signs
Temp Pulse Resp BP Pulse Ox
97.5 F 75 20 133/66 95
05/15/25 03:49 05/15/25 06:00 05/15/25 06:00 05/15/25 04:00 05/14/25 20:00
I&O
05/14/25 05/15/25 05/16/25
06:59 06:59 06:59
Intake Total 2350 / 2350
Output Total 1270 / 1545 960 / 960
Balance 5324 / 805 -960 / -960
Physical Exam
Physical Exam
HEENT: Anicteric and Moist mucous membranes
Cardiology: Other (RR on tele)
Pulmonary: Other (Normal WOB on room air)
GI: Soft, Distended (Mildly distended) and Non Tender
Extremities: No Edema
Neuro: Non Focal
--- NOTE | 2025-05-15 08:27 | W.PN.HOSP.TC ---
Today's Communication/Plan
-
Discharge today
Assessment / Plan
Assessment / Plan
Physical Exam
General: Well Developed, Well Nourished, No Apparent Distress
HEENT: Normocephalic, Atraumatic
Respiratory: Clear to Auscultation Bilaterally
Cardiac: Regular Rhythm and S1/S2
GI: Soft, Nontender, Nondistended and Normal Bowel Sounds
Musculoskeletal: No Cyanosis and No Edema
Skin: Warm and Dry
Neuro: Awake, Alert and Oriented
Psych: Calm and Intact Judgement/Insight
Assessment/Plan
HPI: 70 yo M with PMH significant for RA, ITP and diverticular disease with prior bleeding; who presented with rectal bleeding.
He had a BM around 4:30 PM on DOA and noted gross bright red blood at that time. He felt well thereafter, ate dinner normally, etc. Around 9PM he started to have spontaneous bleeding from the rectum of dark, red blood. This continued hence he
presented to the ED.
Patient reported waves of nausea and crampy lower abdominal pain. He denies any episodes of emesis.
Patient reported prior episodes of GI bleeding / BRBPR due to diverticular disease. He has not previously required any urgent interventions. He has never had a bleeding episode that lasted this long before stopping spontaneously.
He is NOT on blood thinners or antiplatelet agents. He takes prednisone BID.
He is on N-plate for ITP (last dose was Saturday).
CT AP:
1. Extravasation of contrast within the sigmoid colon, suggestive of active diverticular hemorrhage.
2. Pneumatosis intestinalis within a loop of mildly dilated small bowel in the right lower quadrant. Please correlate for symptoms of ischemia.
3. Retractile mesenteric mass as detailed above, unchanged compared to prior CT. New compared to prior CT dated 02/24/2024. Differential diagnosis includes sclerosing adenitis, carcinoid tumor, among others.
# Acute Blood Loss Anemia with hematochezia likely secondary to diverticular Disease
Admission CT AP showed active diverticular hemorrhage.
IR consulted on admission and pt underwent superselective DEO arteriogram which showed no evidence of active bleeding, and no embolization performed.
s/p 2 units PRBC transfusion on 05/13/25, and 3rd unit PRBC transfused on 05/15/25
I discussed with manager mall Dr. Ann: no signs to suggest rebleeding for Mr Venu Florez; recommend giving him an additional 1 uPRBC given (so 3rd unit PRBC given) drift in Hgb but no signs of active bleeding.
Patient can be discharged with close outpatient follow-up with his primary manager mall, Dr. Geiger & PET for continued evaluation of mesenteric mass
Avoid anticoagulation, antiplatelet medication and NSAIDs with active bleeding
Has CBC and NPLATE scheduled 05/17/25 in the hematology office
#Thrombocytopenia
-Since patient is not having any more gastrointestinal bleeding, he does not need a platelets transfusion -- I discussed this with gastroenterology
-I discussed patient's case with gold prospector Dr. Mora, patient is okay for discharge today
# Rheumatoid Arthritis
# ITP
# Chronic Steroid Therapy
# Leukocytosis secondary to steroids
Switch stress dose steroids to home oral dose of Prednisone 15 mg daily
Noted drop in Platelet count from 228 to 68.
Hematology consult for evaluation for platelet transfusion vs Nplate for drop in platelet count (please see above)
# Chronic Pain on Chronic Opioids, stable.
Change IV pain med to ATTRACTION ATTENDANT PO pain med
# Hypothyroidism
Continue home Levothyroxine
# PAD
# Chronic Lymphedema, stable.
Continue compression garments / SCDs.
Not on antiplatelet agents, etc for PAD given ITP.
# Mesenteric Mass
# Small Bowel Pneumatosis
Incidental findings from current / prior imaging.
Follow for any related symptoms.
Follow-up with PCP, Heme / Onc, etc as an outpatient for serial imaging, follow-up, etc.
Patient can be discharged with close outpatient follow-up with his primary manager mall, Dr. Geiger & PET for continued evaluation of mesenteric mass
Avoid anticoagulation, antiplatelet medication and NSAIDs with active bleeding
DVT Prophylaxis: SCDs
Code Status: Full
More than 30 minutes spent in discharge including
Final examination of the patient
Summarizing hospital stay
Instructions for continuing care to all relevant caregivers
Preparation of discharge records, prescriptions, and referral forms
Total time spent (in minutes): 42
Anticipated Discharge: Today
Subjective/Interval History
-
Date of Service: May 15, 2025
Patient was seen and examined. He denied any new symptoms or complaints. He had a maroon bowel movement yesterday.
Objective Data
-
Labs:
Laboratory Results
05/15/25
04:28
WBC 24.3 H
Hgb 7.5 L
Hct 23.4 L
Plt Count 44 L D
Sodium 136
Potassium 3.5
Chloride 108 H
Carbon Dioxide 24
BUN 25 H
Creatinine 0.8
Glucose 105 H
Calcium 7.7 L
Vital Signs:
Vital Signs
Temp Pulse Resp BP Pulse Ox
97.6 F 75 13 133/66 95
05/15/25 08:00 05/15/25 07:30 05/15/25 07:30 05/15/25 04:00 05/14/25 20:00
I&O
05/14/25 05/15/25 05/16/25
06:59 06:59 06:59
Intake Total 2350 / 2350
Output Total 1270 / 1545 960 / 960
Balance 1080 / 805 -960 / -960
[2025-05-15] MEDS: PROTONIX IV IV (09:36)
[2025-05-15] MEDS: NSS (PRESERVATIVE FREE) IV (09:36)
[2025-05-15] MEDS: DELTASONE 10 MG PO (10:10)
[2025-05-15] MEDS: PROTONIX 40 MG PO (10:10)
--- NOTE | 2025-05-15 10:14 | PTCARENOTE ---
1 unit PRBCs started. Patient extremely eager to go home to his 90 year old father. Plan to d/c home later today after blood and CBC recheck. Pt updated and made aware. Patient attributing platelet drop to a 'sinus infection'; pt reports yellow
colored mucous from nose.
--- NOTE | 2025-05-15 10:20 | W.PN.ONC2 ---
Today's Communication / Plan
-
no objection to dc if Hgb >8 and platelets stable
Impression
Impression
ITP, last dose Thursday 05/10
rectal bleeding -pt underwent superselective DEO arteriogram which showed no evidence of active bleeding, and no embolization performed
mesenteric mass
Plan
Plan
transfuse Hgb <8
platelet count in a blue jourdan tube (non-EDTA tube) to avoid plt clumping affecting accurate platelet count
avoid AC, AP, NSAIDs with active bleeding
Has CBC and NPLATE scheduled 05/17 in the office
OP follow up with Dr. Geiger & PET for continued evaluation of mesenteric mass
Subjective/Objective
Subjective
reports no BM since yesterday, denies any bleeding
afebrile, no hypoxia or hypotension.
1g Hgb drop overnight
Vital Signs:
Vital Signs
Temp Pulse Resp BP Pulse Ox
98.5 F 82 24 141/75 98
05/15/25 10:02 05/15/25 10:02 05/15/25 10:02 05/15/25 10:02 05/15/25 09:41
Lab Results:
Laboratory Data
WBC 24.3 10^3/uL (4.8-10.8) H 05/15/25 04:28
Hgb 7.5 g/dL (13.0-18.0) L 05/15/25 04:28
Plt Count 44 10^3/uL (130-400) L D 05/15/25 04:28
PT 14.7 Sec (11.4-14.6) H 05/13/25 01:23
INR 1.17 05/13/25 01:23
APTT 43.5 Sec (23.4-35.0) H 05/13/25 01:23
eGFR > 60.00 05/15/25 04:28
Physical Exam
scattered bruising in various phases of healing
HEENT: Moist Mucous Membranes; No Jaundice
Pulmonary: Other (unlabored)
GI: Soft and Distended (distended, hernia)
Extremities: Pulses Present
Orders
Orders
Orders From Last 24 Hours
05/14/25 09:52
CBC/No Diff [Complete Blood Count/No Diff] Stat
05/15/25 04:28
Fibrinogen IN AM
05/15/25 10:20
CBC/No Diff [Complete Blood Count/No Diff] Routine
[2025-05-15 10:22] LABS: Albumin 2.5 g/dl (3.5-5.0)
[2025-05-15 14:28] LABS: Hematocrit 30.1 % (39.0-52.0); Mean Corp Hgb Conc. 33.2 g/dL (33.0-37.0); Mean Corpuscular Volume 89.1 fL (80.0-94.0); Red Cell Dist. Width 17.1 % (11.5-14.5)
[2025-05-15 14:29] LABS: Platelet Count 42 10^3/uL (130-400)
[2025-05-15 14:31] LABS: Hemoglobin 10.0 g/dL (13.0-18.0)
--- NOTE | 2025-05-15 16:23 | W.DCSUMMARY ---
Discharge Summary
Discharge Data
Date of Admission: 05/13/25
Date of Discharge: 05/15/25
Total time spent discharging patient (in min): 42
-
Pending Results: No
Hospital Course
70 year-old male with past medical history of ITP (on Prednisone, takes Nplate; also gets IVIG) followed by Dr. Marte, rheumatoid arthritis, PAD, GERD, hyperlipidemia, hypothyroidism, history of diverticulitis and last diverticular bleed in
January 2025 for which she was hospitalized at [facility], presented with 5 episodes of BRBPR on 05/12/25. Patient reported abdominal discomfort but denied syncope or lightheadedness. Patient was admitted to the intensive care unit. CT angiogram was
done, and it was positive for extravasation in the sigmoid region. Patient received 3 units of red blood cells transfusion during his hospitalization. Hematology was consulted in the setting of significant thrombocytopenia. On 05/13/25, patient had
with IR superselective arteriogram of multiple branches of the inferior mesenteric artery demonstrated no extravasation of contrast -- therefore, embolization was not performed. Patient was stable for discharge with close outpatient follow-up.
Discharge Plan
-
Patient Disposition: Home (Routine Discharge)
Discharge Diagnosis/Procedures: Acute gastrointestinal bleeding with hematochezia likely due to diverticular bleeding -- interventional radiology consulted on admission and patient underwent super-selective DEO arteriogram which showed no evidence
of active bleeding, and no embolization was therefore performed -- patient received 2 units Packed Red Blood Cells transfusion on 05/13/25, and 3rd unit Packed Red Blood Cells transfused on 05/15/25
Thrombocytopenia
Rheumatoid Arthritis
ITP
Chronic Steroid Therapy
Leukocytosis secondary to steroids
Chronic Pain on Chronic Opioids
Hypothyroidism
Peripheral Artery Disease
Chronic Lymphedema
Mesenteric Mass
Small Bowel Pneumatosis
CT Abdomen/Pelvis Angiogram with/without intravenous contrast
'IMPRESSION:
1. Extravasation of contrast within the sigmoid colon, suggestive of active diverticular hemorrhage.
2. Pneumatosis intestinalis within a loop of mildly dilated small bowel in the right lower quadrant. Please correlate for symptoms of ischemia.
3. Retractile mesenteric mass as detailed above, unchanged compared to prior CT. New compared to prior CT dated 02/24/2024. Differential diagnosis includes sclerosing adenitis, carcinoid tumor, among others.'
Condition: Fair
Diet: As tolerated
Activity: As tolerated
Driving Restrictions: As prior to admission
Activity Restrictions/Additional Instructions:
If you have any dark black stools or bloody colored stools, or if you have any other new symptoms, please return to the emergency room right away.
You need to follow-up closely with your primary turnaround engineer, Dr. Geiger & you need PET/CT study, for continued evaluation of mesenteric mass.
Avoid anticoagulation medication(s), antiplatelet medication(s) and NSAIDs (e.g. Motrin, Ibuprofen, Aleve, etc) with active bleeding.
You have CBC labwork and NPLATE scheduled on 05/17/25 in the hematology office -- please make sure you go to that.
Referrals:
Ruiz Geiger MD [Active, Gastroenterology] - in four to six weeks
Jorge Luis Santos DO [Family Provider, [facility]] - in less than 1 week
Additional Discharge Medication Instructions: Starting tomorrow 05/16/25, you can continue taking your Prednisone.
Prescriptions:
Continued
levothyroxine 50 mcg Tablet
50 mcg PO DAILY
prednisone 10 mg Tablet
10 mg PO .DAILYINMORNING
therapeutic multivitamin Tablet
1 tab PO DAILY
pantoprazole 40 mg Tablet,Delayed Release (Dr/Ec)
40 mg PO DAILY
Nplate 250 mcg Recon Soln
250 mcg SC .EVERYMONDAY
oxycodone 5 mg tablet
5 mg PO QPM
ferrous sulfate [Iron (ferrous sulfate)] 325 mg (65 mg iron) Tablet
325 mg PO DAILY
calcium carbonate-vit D3-min 600 mg-10 mcg (400 unit) Tablet
1 tab PO DAILY
atorvastatin [Lipitor] 20 mg Tablet
20 mg PO QPM
oxycodone 5 mg Tablet
5 mg PO BIDPRN PRN (Reason: severe pain)
prednisone 5 mg Tablet
5 mg PO .[id number]
Discharge Orders:
Discharge Patient (As Directed); Ordered 05/15/25
Ordered By: Delio Brody
Discharge Date and Time
Discharge Date/Time: 05/15/25 17:07
Print Language: BANGLADESHI
--- NOTE | 2025-05-15 16:45 | PTCARENOTE ---
Discharge paperwork given, all questions answered. IV removed. Belongings returned. Pt discharged off unit via WC. Denies pain. Pt thankful for care.
--- NOTE | 2025-05-16 08:25 | CM ---
chart reviewed
patient left before CM saw him
discharged home no needs
PLAN: home, no needs
== END 2025-05-15 17:07 | disposition home or self-care (01) | DRG 378 ==
LOC: ICU 03:43
PROVIDERS: Emergency Medicine; Internal Medicine; Nurse Practitioner Acute Care; Physician Assistant; Radiology Vascular & Interventional Radiology; ADMITTING PHYSICIAN Hospitalist; ATTENDING PHYSICIAN Hospitalist; CONSULT PHYSICIAN Internal Medicine; CONSULT PHYSICIAN Internal Medicine Hematology & Oncology; CONSULT PHYSICIAN Specialist; EMERGENCY PHYSICIAN Emergency Medicine; FAMILY PHYSICIAN Family Medicine
PROC: B4151ZZ Fluoroscopy of Inferior Mesenteric Artery using Low Osmolar Contrast (ICD-10-PCS; 2025-05-13)
PROC: 30233N1 Transfusion of Nonautologous Red Blood Cells into Peripheral Vein, Percutaneous Approach (ICD-10-PCS; 2025-05-13)
DX: K57.33 Diverticulitis of large intestine without perforation or abscess with bleeding (principal); D62 Acute posthemorrhagic anemia; D69.3 Immune thrombocytopenic purpura; I25.10 Atherosclerotic heart disease of native coronary artery without angina pectoris; I73.9 Peripheral vascular disease, unspecified; K21.9 Gastro-esophageal reflux disease without esophagitis; N40.0 Benign prostatic hyperplasia without lower urinary tract symptoms; M06.9 Rheumatoid arthritis, unspecified; E03.9 Hypothyroidism, unspecified; Z90.81 Acquired absence of spleen; Z88.0 Allergy status to penicillin; Z79.890 Hormone replacement therapy; Z79.891 Long term (current) use of opiate analgesic; Z88.2 Allergy status to sulfonamides; Z88.6 Allergy status to analgesic agent; I89.0 Lymphedema, not elsewhere classified; Z79.52 Long term (current) use of systemic steroids; E78.00 Pure hypercholesterolemia, unspecified; G89.29 Other chronic pain; I10 Essential (primary) hypertension; Z86.2 Personal history of diseases of the blood and blood-forming organs and certain disorders involving the immune mechanism
CPT/HCPCS: 36245; 74174; 75726; 76937; 80048; 80053; 82040; 82962; 83605; 83735; 85014; 85018; 85025; 85027; 85384; 85610; 85730; 86850; 86900; 86901; 86920; 93005; C1769; C1887; P9016; Q9967